=== PATIENT | female | born 1940 | race African-American/Black ===

== ENCOUNTER 2020-12-25 09:08 | Inpatient (IN) | payer MEDICARE ==
[~2020-12-25] VITALS: Ht 170.2 cm; Wt 88.7 kg
--- NOTE | 2020-12-25 09:23 | PHYS DOC ---
General Adult EDM: Chief Complaint: ALTERED MENTAL STATUS HPI: HPI: 80-year-old female past medical history significant for dementia, hypertension, hyperlipidemia, GERD, diabetes, on plavix, resents to the ED from [facility] with concern for change in mental status and high blood pressure. Last known w ell 2 days ago. Reports patient is usually ambulatory with some assistance but can no longer ambulate. Patient alert to self and month, not situation. Review of Systems: Review of Systems: Due to dementia and/or medical condition, history and review of systems are unobtainable. Heart Score: Risk Factors: Risk Factors: DM, Current or recent (<one month) smoker, HTN, HLP, family history of CAD, obesity. Risk Scores: Score 0 - 3: 2.5% MACE over next 6 weeks - Discharge Home Score 4 - 6: 20.3% MACE over next 6 weeks - Admit for Clinical Observation Score 7 - 10: 72.7% MACE over next 6 weeks - Early Invasive Strategies Physical Exam: PE: Constitutional: Well developed, well nourished, no acute distress, non-toxic appearance. HENT: Normocephalic, atraumatic, left lower facial droop/forehead sparing Eyes: EOMI, conjunctiva normal, no discharge. Neck: Normal range of motion, supple, Cardiovascular: S1/2 present, regular rhythm Lungs & Thorax: Speaking in full sentences, bilateral equal chest rise, no tachy pnea or increased work of breathing Abdomen: soft, no tenderness, Skin: Warm, dry, no erythema, no rash. [] Back: No tenderness, no CVA tenderness. [] Extremities: No tenderness, no cyanosis, no edema Neurologic: Alert, 4 points NIH Stroke Scale, normal motor function, normal sensory function, no focal deficits noted. [] Psychologic: Affect normal, judgement normal, mood -pleasant/smiling EKG: EKG: [] Radiology/Procedures: Radiology/Procedures: [] IMAGING REPORT Signed PATIENT: CLAUDIO RAMESH AACCOUNT: [id number] : 1940 LOCATION: ER AGE: 80 SEX: F EXAM STATUS: REG ER ORD. PHYSICIAN: BETO ROMERO DO REASON: ams PROCEDURE: CT HEAD WO CONTRAST CT HEAD INDICATION: Altered mental status COMPARISON: None Available. Exposure: One or more of the following individualized dose reduction techniques were utilized for this examination: 1. Automated exposure control 2. Adjustment of the mA and/or kV according to patient size 3. Use of iterative reconstruction technique TECHNIQUE: 5 mm contiguous axial images were obtained from the skull base to the vertex in both bone and soft tissue algorithm. FINDINGS: Mild bilateral periventricular white matter hypodensities likely chronic small vessel ischemic disease. No evidence of acute intracranial hemorrhage. No extra-axial fluid collections. No mass effect or midline shift. Ventricular size is appropriate. Basal cisterns are patent. No fractures identified.Cullen-white differentiation is preserved.Globes and orbits are within normal limits. Paranasal sinuses and mastoid air cells are clear. IMPRESSION: No acute intracranial findings. Electronically signed by: Adalid Gaston MD (12/25/2020 9:55 AM) [id number] DICTATED and SIGNED BY: ADALID GASTON MD DATE: 12/25/20 [id number] IMAGING REPORT Signed PATIENT: CLAUDIO RAMESH AACCOUNT: [id number] : 1940 LOCATION: ER AGE: 80 SEX: F EXAM STATUS: REG ER ORD. PHYSICIAN: BETO ROMERO DO REASON: ams PROCEDURE: PORTABLE CHEST 1V Chest AP portable at 0923: Reason for examination: Altered mental status. The heart size is normal. Mediastinum is unremarkable. Lung patrida are clear. No acute bony abnormalities are seen. Impression: No acute cardiopulmonary disease. Electronically signed by: Obi Jansen MD (12/25/2020 9:46 AM) [facility] DICTATED and SIGNED BY: OBI JANSEN MD DATE: 12/25/20 [id number] 0 Course & Med Decision Making: Course & Med Decision Making Pertinent Labs and Imaging studies reviewed. (See chart for details) Concern for left facial droop. NH was concerned for change in mental status/confusion and left sided weakness-ED exam not consistent w/these complaints. Is moving all 4 extremities. Given low stroke scale, no signs of large vessel occlusion, and renal insufficiency (no prior for baseline comparison), CT of the head and neck was not ordered. Will admit for neurology consultation, consider MRI. Was admitted to medicine for further medical management. The patient has been stabilized within the capability of the emergency department. The patient will be transported for further care and management or will be moved to an observation or inpatient service. I have communicated with the staff or medical practitioner taking over this patient's care. Dragon Disclaimer: Dragon Disclaimer: This electronic medical record was generated, in whole or in part, using a voice recognition dictation system. Departure Departure Impression: Primary Impression: Facial droop Additional Impression: Renal insufficiency Disposition: ADMITTED INPT THIS HOSP Admitting Physician: ADALBERTO (Dr. Shin) Condition[facility] Dec 25, 2020 09:23
[2020-12-25 09:33] LABS: BILIRUBIN,URINE NEGATIVE (NEG); CLARITY,URINE CLEAR; COLOR,URINE YELLOW; NITRITE,URINE NEGATIVE (NEG); PROTEIN,URINE NEGATIVE (NEG-TRACE)
[2020-12-25 09:40] LABS: BASO % 1 % (0-3); EOS # 0.3 x10^3/uL (0.0-0.7); EOS % 6 % (0-3); HEMATOCRIT 37.1 % (36.0-47.0); HEMOGLOBIN 12.2 g/dL (12.0-15.5); LYMPH % 19 % (24-48); MEAN CORPUSCULAR HEMOGLOBIN 30 pg (25-35); MEAN CORPUSCULAR HGB CONC 33 g/dL (31-37); MEAN CORPUSCULAR VOLUME 89 fL (79-100); MONO # 0.4 x10^3/uL (0.0-1.1); MONO % 8 % (0-9); NEUT # 3.6 x10^3/uL (1.8-7.7); NEUT % 67 % (31-73); PLATELET COUNT 256 x10^3/uL (140-400); RED BLOOD COUNT 4.15 x10^6/uL (3.50-5.40); RED CELL DISTRIBUTION WIDTH 14.4 % (11.5-14.5); WHITE BLOOD COUNT 5.5 x10^3/uL (4.0-11.0)
[2020-12-25 09:47] LABS: BACTERIA,URINE 0 /HPF (0-FEW); RBC,URINE 0 /HPF (0-2); WBC,URINE 0 /HPF (0-4)
[2020-12-25 09:50] LABS: CALCIUM 9.9 mg/dL (8.5-10.1); CREATININE 1.4 mg/dL (0.6-1.0); GFR 43.9; POTASSIUM 3.5 mmol/L (3.5-5.1)
[2020-12-25 09:56] LABS: ALBUMIN 3.3 g/dL (3.4-5.0); ALBUMIN/GLOBULIN RATIO 0.9 (1.0-1.7); TOTAL BILIRUBIN 0.4 mg/dL (0.2-1.0); TOTAL PROTEIN 7.1 g/dL (6.4-8.2)
--- NOTE | 2020-12-25 10:00 | RAD ---
Chest AP portable at 0923: Reason for examination: Altered mental status. The heart size is normal. Mediastinum is unremarkable. Lung partida are clear. No acute bony abnormali ties are seen. Impression: No acute cardiopulmonary disease. Electronically signed by: Shira Williamson MD (12/25/2020 9:46 AM) MAUREEN
--- NOTE | 2020-12-25 10:01 | RAD ---
CT HEAD INDICATION: Altered mental status COMPARISON: None Available. Exposure: One or more of the following individualized dose reduction techniques were utilized for thi s examination: 1. Automated exposure control 2. Adjustment of the mA and/or kV according to patient size 3. Use of iterative reconstruction technique TECHNIQUE: 5 mm contiguous axial images were obtained from the skull base to the vertex in both bone and soft tissue algorithm. FINDINGS: Mild bilateral periventricular white matter hypodensities likely chronic small vessel ischemic diseas e. No evidence of acute intracranial hemorrhage. No extra-axial fluid collections. No mass effect or midline shift. Ventricular size is appropriate. Basal cisterns are patent. No fractures identified.Cullen-white differentiation is preserved.Globes and orbits are within normal l imits. Paranasal sinuses and mastoid air cells are clear. IMPRESSION: No acute intracranial findings. Electronically signed by: Adalid Gaston MD (12/25/2020 9:55 AM) [id number]
--- NOTE | 2020-12-25 11:25 | PDOC1 ---
History and Physical Date of Service: DOS: DATE: 12/25/20 TIME: 11:22 Chief Complaint: Chief Complain: AMS History of Present Illness: HPI: Patient is a 80-year-old female who was brought from [facility] mainly because the lawn caretaker/nurse was concerned for stroke. Son was in the room was able to provide some of the history as he was told that they brought her to the hospital May because she had some confusion and there was concern for left-sided facial droop. Patient has a past medical history of dementia, hy pertension, diabetes mellitus type 2, dyslipidemia, GERD. When asked to the patient why she came to the hospital she is unsure of why she was brought in as she is a poor historian. Patient is usually amatory with some assistance but she is unable to walk at this time. Currently denies any fevers, chest pain, shortness of breath, abdominal pain, diarrhea or dysuria. Past Medical/Surgical History: PMH/PSH: Unable to obtain further history due to dementia Allergies: Allergies: Coded Allergies: Sulfa (Sulfonamide Antibiotics) (Verified Allergy, Intermediate, 12/25/20) latex (Verified Allergy, Intermediate, 12/25/20) red dye (Verified Allergy, Intermediate, 12/25/20) yellow dye (Verified Allergy, Intermediate, 12/25/20) Family History: Family History: Reviewed with no relevant findings Social History: Social History: Denies alcohol, drug or tobacco abuse ROS: Review of Systems Review of System REVIEW OF SYSTEMS: GENERAL: Denies weakness SKIN: No bruising, hair changes or rashes. EYES: No blurred, double or loss of vision. NOSE AND THROAT: No history of nosebleeds, hoarseness or sore throat. HEART: No history of palpitations, chest pain or shortness of breath on exertion. LUNGS: Denies cough, hemoptysis, wheezing or shortness of breath. GASTROINTESTINAL: Denies changes in appetite, nausea, vomiting, diarrhea or constipation. GENITOURINARY: No history of frequency, urgency, hesitancy or nocturia. NEUROLOGIC: Denies history of numbness, tingling, or tremor. PSYCHIATRIC: No history of panic, anxiety or depression. ENDOCRINE: No history of heat or cold intolerance, polyuria or polydipsia. EXTREMITIES: Denies joint pain, pain on walking or stiffness. Physical Exam: Vital Signs: Vital Signs Date Time Temp Pulse Resp B/P (MAP) Pulse Ox O2 Delivery O2 Flow Rate FiO2 12/25/20 09:08 98.2 70 16 145/69 (94) 98 Room Air 98.2 Physcial Exam: GEN: No apparent distress. Alert and oriented NIH score 6 HEENT: Normal cephalic, atraumatic, external auditory canals are patent EYES: Extraocular muscles are intact, pupil are equally round and reactive to light and accommodation MUSCULOSKELETAL: Well developed , well nourished, good range of motion ENDOCRINE: No thyromegaly was palpated LYMPHATICS: No cervical chain or axillary nodes were noted HEMATOPOIETIC: No bruising NECK: Supple, no JVD, no thyromegaly was noted LUNGS: Clear to auscultation in all lung partida without rhonchi or wheezing HEART: RRR, S!, S2 present. Peripheral pulses intact, no obvious murmurs noted ABDOMEN: Soft, nontender. Positive bowel sounds, no organomegaly, normal bowel sounds EXTREMITIES: No pronator drift. Facial palsy and minor left sided weakness. NEUROLOGIC: Normal speech and tone. A&O x 3, moves all extremities, no obvious focal deficits PSYCHIATRIC: Normal affect, normal mood. Stable SKIN: No ulcerations or rashes, good skin turgor, no jaundice VASCULAR: Good capillary refill, neurovascular bundle appears to be intact Labs: Labs: Laboratory Tests Test 12/25/20 09:24 12/25/20 09:30 Urine Collection Type U cath Urine Color Yellow Urine Clarity Clear Urine pH 7.0 (<5.0-8.0) Urine Specific Stanley 1.015 (1.000-1.030) Urine Protein Negative mg/dL (NEG-TRACE) Urine Glucose (UA) Negative mg/dL (NEG) Urine Ketones (Stick) Negative mg/dL (NEG) Urine Blood Negative (NEG) Urine Nitrite Negative (NEG) Urine Bilirubin Negative (NEG) Urine Urobilinogen Dipstick 1.0 mg/dL (0.2 mg/dL) Urine Leukocyte Esterase Negative (NEG) Urine RBC 0 /HPF (0-2) Urine WBC 0 /HPF (0-4) Urine Squamous Epithelial Cells Few /LPF Urine Bacteria 0 /HPF (0-FEW) Urine Mucus Slight /LPF White Blood Count 5.5 x10^3/uL (4.0-11.0) Red Blood Count 4.15 x10^6/uL (3.50-5.40) Hemoglobin 12.2 g/dL (12.0-15.5) Hematocrit 37.1 % (36.0-47.0) Mean Corpuscular Volume 89 fL (79-100) Mean Corpuscular Hemoglobin 30 pg (25-35) Mean Corpuscular Hemoglobin Concent 33 g/dL (31-37) Red Cell Distribution Width 14.4 % (11.5-14.5) Platelet Count 256 x10^3/uL (140-400) Neutrophils (%) (Auto) 67 % (31-73) Lymphocytes (%) (Auto) 19 % (24-48) Monocytes (%) (Auto) 8 % (0-9) Eosinophils (%) (Auto) 6 % (0-3) Basophils (%) (Auto) 1 % (0-3) Neutrophils # (Auto) 3.6 x10^3/uL (1.8-7.7) Lymphocytes # (Auto) 1.0 x10^3/uL (1.0-4.8) Monocytes # (Auto) 0.4 x10^3/uL (0.0-1.1) Eosinophils # (Auto) 0.3 x10^3/uL (0.0-0.7) Basophils # (Auto) 0.0 x10^3/uL (0.0-0.2) Sodium Level 141 mmol/L (136-145) Potassium Level 3.5 mmol/L (3.5-5.1) Chloride Level 102 mmol/L (98-107) Carbon Dioxide Level 30 mmol/L (21-32) Anion Gap 9 (6-14) Blood Urea Nitrogen 28 mg/dL (7-20) Creatinine 1.4 mg/dL (0.6-1.0) Estimated GFR (Cockcroft-Gault) 43.9 BUN/Creatinine Ratio 20 (6-20) Glucose Level 125 mg/dL (70-99) Calcium Level 9.9 mg/dL (8.5-10.1) Total Bilirubin 0.4 mg/dL (0.2-1.0) Aspartate Amino Transf (AST/SGOT) 23 U/L (15-37) Alanine Aminotransferase (ALT/SGPT) 30 U/L (14-59) Alkaline Phosphatase 61 U/L (46-116) Creatine Kinase 46 U/L (26-192) Troponin I Quantitative < 0.017 ng/mL (0.000-0.055) NF-Yfk-F-Type Natriuretic Peptide 104 pg/mL (0-449) Total Protein 7.1 g/dL (6.4-8.2) Albumin 3.3 g/dL (3.4-5.0) Albumin/Globulin Ratio 0.9 (1.0-1.7) Laboratory Tests Test 12/25/20 09:24 12/25/20 09:30 Urine Collection Type U cath Urine Color Yellow Urine Clarity Clear Urine pH 7.0 (<5.0-8.0) Urine Specific Stanley 1.015 (1.000-1.030) Urine Protein Negative mg/dL (NEG-TRACE) Urine Glucose (UA) Negative mg/dL (NEG) Urine Ketones (Stick) Negative mg/dL (NEG) Urine Blood Negative (NEG) Urine Nitrite Negative (NEG) Urine Bilirubin Negative (NEG) Urine Urobilinogen Dipstick 1.0 mg/dL (0.2 mg/dL) Urine Leukocyte Esterase Negative (NEG) Urine RBC 0 /HPF (0-2) Urine WBC 0 /HPF (0-4) Urine Squamous Epithelial Cells Few /LPF Urine Bacteria 0 /HPF (0-FEW) Urine Mucus Slight /LPF White Blood Count 5.5 x10^3/uL (4.0-11.0) Red Blood Count 4.15 x10^6/uL (3.50-5.40) Hemoglobin 12.2 g/dL (12.0-15.5) Hematocrit 37.1 % (36.0-47.0) Mean Corpuscular Volume 89 fL (79-100) Mean Corpuscular Hemoglobin 30 pg (25-35) Mean Corpuscular Hemoglobin Concent 33 g/dL (31-37) Red Cell Distribution Width 14.4 % (11.5-14.5) Platelet Count 256 x10^3/uL (140-400) Neutrophils (%) (Auto) 67 % (31-73) Lymphocytes (%) (Auto) 19 % (24-48) Monocytes (%) (Auto) 8 % (0-9) Eosinophils (%) (Auto) 6 % (0-3) Basophils (%) (Auto) 1 % (0-3) Neutrophils # (Auto) 3.6 x10^3/uL (1.8-7.7) Lymphocytes # (Auto) 1.0 x10^3/uL (1.0-4.8) Monocytes # (Auto) 0.4 x10^3/uL (0.0-1.1) Eosinophils # (Auto) 0.3 x10^3/uL (0.0-0.7) Basophils # (Auto) 0.0 x10^3/uL (0.0-0.2) Sodium Level 141 mmol/L (136-145) Potassium Level 3.5 mmol/L (3.5-5.1) Chloride Level 102 mmol/L (98-107) Carbon Dioxide Level 30 mmol/L (21-32) Anion Gap 9 (6-14) Blood Urea Nitrogen 28 mg/dL (7-20) Creatinine 1.4 mg/dL (0.6-1.0) Estimated GFR (Cockcroft-Gault) 43.9 BUN/Creatinine Ratio 20 (6-20) Glucose Level 125 mg/dL (70-99) Calcium Level 9.9 mg/dL (8.5-10.1) Total Bilirubin 0.4 mg/dL (0.2-1.0) Aspartate Amino Transf (AST/SGOT) 23 U/L (15-37) Alanine Aminotransferase (ALT/SGPT) 30 U/L (14-59) Alkaline Phosphatase 61 U/L (46-116) Creatine Kinase 46 U/L (26-192) Troponin I Quantitative < 0.017 ng/mL (0.000-0.055) EF-Cef-H-Type Natriuretic Peptide 104 pg/mL (0-449) Total Protein 7.1 g/dL (6.4-8.2) Albumin 3.3 g/dL (3.4-5.0) Albumin/Globulin Ratio 0.9 (1.0-1.7) Images: Images CT of the head IMPRESSION: No acute intracranial findings. CXR Impression: 1. No acute cardiopulmonary process. Assessment/Plan Assessment/Plan Acute encephalopathy NOS Concern for acute TIA Investigation for COVID-19 infection No obvious centrally acting medications currently. No obvious signs of infection on physical exam. No fevers or nuchal rigidity. CT head is negative for acute etiology. No history or signs of trauma Pending TSH, B12, levels Consider dementia prevention protocol Provide adequate lighting (open curtains during the day, turn the lights off at night) Provide frequent personal contact with family, friends, and staff or TV Encourage early and frequent mobilization Rehab screening ordered IV Haldol as needed for agitation, consider sitter as needed if non-redirectable agitation Avoid physical restraints, catheters or tubes, and benzodiazepines Nutrition consult if there is malnutrition or concern for vitamin deficiencies Continue IV fluids Neurology consult Continue telemetry monitoring Pending Covid test Lovenox for DVT prophylaxis ADA diet Full code Discussed with RN and SW Dispo Justifications for Admission Other Justification PATRICK ROTHMAN MD Dec 25, 2020 11:25
[2020-12-25] MEDS ORDERED: ACETAMINOPHEN 325 MG TABLET. PO PRN ×2 (12:45→13:15)
[2020-12-25] MEDS ORDERED: DEXTROSE 50% 25 GM / 50ML DISP.SYRIN. IV PRN (12:45)
[2020-12-25] MEDS ORDERED: DOCUSATE SODIUM 100 MG CAPSULE. PO PRN (12:45)
[2020-12-25] MEDS ORDERED: ONDANSETRON PF 4 MG/2 ML VIAL. IVP PRN (12:45)
[2020-12-25] MEDS ORDERED: SENNOSIDES 8.6 MG TABLET PO PRN (12:45)
[2020-12-25] MEDS ORDERED: ASPIRIN RECTAL 300 MG SUPP. PR PRN (13:15)
--- NOTE | 2020-12-25 13:48 | PDOC2 ---
NEUROLOGY CONSULT Date of Service DOS: DATE: 12/25/20 TIME: 13:42 Reason for Consult Reason for Consult: Possible stroke Referring Physician Referring Physician: Dr. Shin Source Source: Caregiver (Son), Chart review, Patient History of Present Illness History of Present Illness The patient is a 80-year-old right-handed female jail resident with history of dementia noted to have left facial droop. This may have been going on for as long as 2 days, we are not sure of the duration of symptoms. In fact the patient was in the hospital in March because of confusion and facial droop then. Patient denies any headache or other pain. Past Medical History Cardiovascular: HTN CENTRAL NERVOUS SYSTEM: Dementia, Other (Gait disorder) GI: GERD Heme/Onc: Iron deficiency Anemia Psych: Depression Endocrine: Diabetes Past Surgical History Past Surgical History: No pertinent history Family History Family History: No pertinent hx Social History Social History , jail resident, no alcohol or tobacco Current Medications Current Medications Current Medications Sennosides (Senna) 17.2 mg PRN BID PRN PO CONSTIPATION; Start 12/25/20 at 12:45 Docusate Sodium (Colace) 100 mg PRN DAILY PRN PO HARD STOOLS; Start 12/25/20 at 12:45; Status UNV Ondansetron HCl (Zofran) 4 mg PRN Q6HRS PRN IVP NAUSEA/VOMITING; Start 12/25/20 at 12:45 Insulin Human Lispro (HumaLOG) 0-7 UNITS TIDWMEALS SQ ; Start 12/25/20 at 17:00 Dextrose (Dextrose 50%-Water Syringe) 12.5 gm PRN Q15MIN PRN IV SEE COMMENTS; Start 12/25/20 at 12:45 Acetaminophen (Tylenol) 650 mg PRN Q4HRS PRN PO TEMP OVER 100.4F OR MILD PAIN; Start 12/25/20 at 12:45 Enoxaparin Sodium (Lovenox 30mg Syringe) 30 mg DAILY SQ ; Start 12/26/20 at 09:00 Sodium Chloride 1,000 ml @ 70 mls/hr [id number] IV ; Start 12/25/20 at 13:15 Atorvastatin Calcium (Lipitor) 80 mg QHS PO ; Start 12/25/20 at 21:00 Acetaminophen (Tylenol) 650 mg PRN Q6HRS PRN PO MILD PAIN / TEMP > 100.3'F; Start 12/25/20 at 13:15; Stop 12/25/20 at 13:32; Status DC Aspirin (Ecotrin) 325 mg DAILYWBKFT PO ; Start 12/26/20 at 08:00 Aspirin (Aspirin Rectal Supp) 300 mg PRN DAILY PRN IA IF UNABLE TO TAKE PO; Start 12/25/20 at 13:15 Allergies Allergies: Coded Allergies: Sulfa (Sulfonamide Antibiotics) (Verified Allergy, Intermediate, 12/25/20) latex (Verified Allergy, Intermediate, 12/25/20) red dye (Verified Allergy, Intermediate, 12/25/20) yellow dye (Verified Allergy, Intermediate, 12/25/20) ROS Review of System Negative for fever, chills, weight loss, shortness of breath, chest pain, indigestion, hematochezia, melena, and dysuria. Full 14-point review of systems is negative. Physical Exam Physical Examination General: Well-developed, well-nourished black female in no acute distress HEENT: Normocephalic andatraumatic. Temporal arteriespulsatile and nontender. Neck: Supple without bruit, no meningismus Musculoskeletal: Stability:see neurologic. Gait exam:see neurologic. Tone:see neurologic.Strength:see neurologic. Neurological: Mental Status:orientation, memory, attention span/concentration, language, fund of knowledge: Does not know date or location. Cranial Nerves:Pupils equal and reactive to light, extraocular movements areintact, visual partida are full to confrontation. Facial sensation is normal. There is a slight left upper motor neuron facial weakness. Vestibulo-ocular reflex is intact. Palate elevates and tongue protrudes in midline. All other cranial related problems are negative except as mentioned before.Reflexes:2+ and symmetric with flexor plantar responses. Motor:4/5 strength, maybe a little weaker on the left, with normal tone and bulk. Coordination:Finger-nose finger and rmcz-bs-[id number] testing are normal. Rapid alternating movements and fine finger movements are intact. Gait:Not tested. Sensory:Normal pinprick, vibration, light touch, proprioception. Vitals VITALS Vital Signs Date Time Temp Pulse Resp B/P (MAP) Pulse Ox O2 Delivery O2 Flow Rate FiO2 12/25/20 13:03 66 20 98 12/25/20 09:08 98.2 145/69 (94) Room Air 98.2 Labs Labs Laboratory Tests Test 12/25/20 09:24 12/25/20 09:30 Urine Collection Type U cath Urine Color Yellow Urine Clarity Clear Urine pH 7.0 (<5.0-8.0) Urine Specific [place] 1.015 (1.000-1.030) Urine Protein Negative mg/dL (NEG-TRACE) Urine Glucose (UA) Negative mg/dL (NEG) Urine Ketones (Stick) Negative mg/dL (NEG) Urine Blood Negative (NEG) Urine Nitrite Negative (NEG) Urine Bilirubin Negative (NEG) Urine Urobilinogen Dipstick 1.0 mg/dL (0.2 mg/dL) Urine Leukocyte Esterase Negative (NEG) Urine RBC 0 /HPF (0-2) Urine WBC 0 /HPF (0-4) Urine Squamous Epithelial Cells Few /LPF Urine Bacteria 0 /HPF (0-FEW) Urine Mucus Slight /LPF White Blood Count 5.5 x10^3/uL (4.0-11.0) Red Blood Count 4.15 x10^6/uL (3.50-5.40) Hemoglobin 12.2 g/dL (12.0-15.5) Hematocrit 37.1 % (36.0-47.0) Mean Corpuscular Volume 89 fL (79-100) Mean Corpuscular Hemoglobin 30 pg (25-35) Mean Corpuscular Hemoglobin Concent 33 g/dL (31-37) Red Cell Distribution Width 14.4 % (11.5-14.5) Platelet Count 256 x10^3/uL (140-400) Neutrophils (%) (Auto) 67 % (31-73) Lymphocytes (%) (Auto) 19 % (24-48) Monocytes (%) (Auto) 8 % (0-9) Eosinophils (%) (Auto) 6 % (0-3) Basophils (%) (Auto) 1 % (0-3) Neutrophils # (Auto) 3.6 x10^3/uL (1.8-7.7) Lymphocytes # (Auto) 1.0 x10^3/uL (1.0-4.8) Monocytes # (Auto) 0.4 x10^3/uL (0.0-1.1) Eosinophils # (Auto) 0.3 x10^3/uL (0.0-0.7) Basophils # (Auto) 0.0 x10^3/uL (0.0-0.2) Sodium Level 141 mmol/L (136-145) Potassium Level 3.5 mmol/L (3.5-5.1) Chloride Level 102 mmol/L (98-107) Carbon Dioxide Level 30 mmol/L (21-32) Anion Gap 9 (6-14) Blood Urea Nitrogen 28 mg/dL (7-20) Creatinine 1.4 mg/dL (0.6-1.0) Estimated GFR (Cockcroft-Gault) 43.9 BUN/Creatinine Ratio 20 (6-20) Glucose Level 125 mg/dL (70-99) Calcium Level 9.9 mg/dL (8.5-10.1) Total Bilirubin 0.4 mg/dL (0.2-1.0) Aspartate Amino Transf (AST/SGOT) 23 U/L (15-37) Alanine Aminotransferase (ALT/SGPT) 30 U/L (14-59) Alkaline Phosphatase 61 U/L (46-116) Creatine Kinase 46 U/L (26-192) Troponin I Quantitative < 0.017 ng/mL (0.000-0.055) OF-Prw-C-Type Natriuretic Peptide 104 pg/mL (0-449) Total Protein 7.1 g/dL (6.4-8.2) Albumin 3.3 g/dL (3.4-5.0) Albumin/Globulin Ratio 0.9 (1.0-1.7) Laboratory Tests Test 12/25/20 09:24 12/25/20 09:30 Urine Collection Type U cath Urine Color Yellow Urine Clarity Clear Urine pH 7.0 (<5.0-8.0) Urine Specific [place] 1.015 (1.000-1.030) Urine Protein Negative mg/dL (NEG-TRACE) Urine Glucose (UA) Negative mg/dL (NEG) Urine Ketones (Stick) Negative mg/dL (NEG) Urine Blood Negative (NEG) Urine Nitrite Negative (NEG) Urine Bilirubin Negative (NEG) Urine Urobilinogen Dipstick 1.0 mg/dL (0.2 mg/dL) Urine Leukocyte Esterase Negative (NEG) Urine RBC 0 /HPF (0-2) Urine WBC 0 /HPF (0-4) Urine Squamous Epithelial Cells Few /LPF Urine Bacteria 0 /HPF (0-FEW) Urine Mucus Slight /LPF White Blood Count 5.5 x10^3/uL (4.0-11.0) Red Blood Count 4.15 x10^6/uL (3.50-5.40) Hemoglobin 12.2 g/dL (12.0-15.5) Hematocrit 37.1 % (36.0-47.0) Mean Corpuscular Volume 89 fL (79-100) Mean Corpuscular Hemoglobin 30 pg (25-35) Mean Corpuscular Hemoglobin Concent 33 g/dL (31-37) Red Cell Distribution Width 14.4 % (11.5-14.5) Platelet Count 256 x10^3/uL (140-400) Neutrophils (%) (Auto) 67 % (31-73) Lymphocytes (%) (Auto) 19 % (24-48) Monocytes (%) (Auto) 8 % (0-9) Eosinophils (%) (Auto) 6 % (0-3) Basophils (%) (Auto) 1 % (0-3) Neutrophils # (Auto) 3.6 x10^3/uL (1.8-7.7) Lymphocytes # (Auto) 1.0 x10^3/uL (1.0-4.8) Monocytes # (Auto) 0.4 x10^3/uL (0.0-1.1) Eosinophils # (Auto) 0.3 x10^3/uL (0.0-0.7) Basophils # (Auto) 0.0 x10^3/uL (0.0-0.2) Sodium Level 141 mmol/L (136-145) Potassium Level 3.5 mmol/L (3.5-5.1) Chloride Level 102 mmol/L (98-107) Carbon Dioxide Level 30 mmol/L (21-32) Anion Gap 9 (6-14) Blood Urea Nitrogen 28 mg/dL (7-20) Creatinine 1.4 mg/dL (0.6-1.0) Estimated GFR (Cockcroft-Gault) 43.9 BUN/Creatinine Ratio 20 (6-20) Glucose Level 125 mg/dL (70-99) Calcium Level 9.9 mg/dL (8.5-10.1) Total Bilirubin 0.4 mg/dL (0.2-1.0) Aspartate Amino Transf (AST/SGOT) 23 U/L (15-37) Alanine Aminotransferase (ALT/SGPT) 30 U/L (14-59) Alkaline Phosphatase 61 U/L (46-116) Creatine Kinase 46 U/L (26-192) Troponin I Quantitative < 0.017 ng/mL (0.000-0.055) OB-Feg-D-Type Natriuretic Peptide 104 pg/mL (0-449) Total Protein 7.1 g/dL (6.4-8.2) Albumin 3.3 g/dL (3.4-5.0) Albumin/Globulin Ratio 0.9 (1.0-1.7) Images Images CT HEAD INDICATION: Altered mental status COMPARISON: None Available. Exposure: One or more of the following individualized dose reduction techniques were utilized for this examination: 1. Automated exposure control 2. Adjustment of the mA and/or kV according to patient size 3. Use of iterative reconstruction technique TECHNIQUE: 5 mm contiguous axial images were obtained from the skull base to the vertex in both bone and soft tissue algorithm. FINDINGS: Mild bilateral periventricular white matter hypodensities likely chronic small vessel ischemic disease. No evidence of acute intracranial hemorrhage. No extra-axial fluid collections. No mass effect or midline shift. Ventricular size is appropriate. Basal cisterns are patent. No fractures identified.Cullen-white differentiation is preserved.Globes and orbits are within normal limits. Paranasal sinuses and mastoid air cells are clear. IMPRESSION: No acute intracranial findings. Assessment/Plan Assessment/Plan Impression: Possible stroke, her exam is not very impressive History of dementia and gait disorder Recommendations: Brain MRI on routine basis Echocardiogram Carotid Doppler studies Aspirin Statin Rehabilitation screening Not a candidate for alteplase, unknown time of onset Not a candidate for transfer for clot retrieval as there is no evidence of large vessel occlusive disease. Fully discussed with the patient's son. Thank you for letting me help with the patient's care. LULU ALEXIS MD Dec 25, 2020 13:48
--- NOTE | 2020-12-25 16:31 | RAD ---
EXAM: Carotid Doppler sonogram. HISTORY: Atherosclerosis. Stroke. TECHNIQUE: Cullen scale and color Doppler sonographic evaluation of the neck with spectral waveform jie lysis was performed and static images are submitted for review. FINDINGS: There is mild atherosclerotic plaque involving the carotid bifurcations. The peak systolic velocity within the right common carotid artery is 77 cm/sec. The peak systolic shorty ocity within the right internal carotid artery is 79 cm/sec and the end diastolic velocity within the right internal carotid artery is 11 cm/sec. The right ICA/CCA ratio is 1.0. The peak systolic velocity within the left common carotid artery is 113 cm/sec. The peak systolic shorty ocity within the left internal carotid artery is 86 cm/sec and the end diastolic velocity within the left internal carotid artery is 24 cm/sec. The left ICA/CCA ratio is 0.91. There is normal antegrade flow within both vertebral arteries. IMPRESSION: No Doppler evidence of clinically significant stenosis involving the carotid or vertebral arteries. PQRS Compliance Statement - Stenosis calculations for CT, MR and conventional angiography are based u cher measurement of the distal ICA diameter in accordance with the NASCET methodology. Stenosis calcu lations for carotid ultrasound studies are derived from validated velocity criteria which are known t o correlate with the NASCET methodology. Electronically signed by: Cristela Alberto MD (12/25/2020 4:27 PM) [facility]
[2020-12-25 16:40] VITALS: BP 188/79
[2020-12-25] MEDS: INSULIN LISPRO 300 UNITS/3 ML VIAL. SQ SCH (17:00)
[2020-12-25 17:15] VITALS: BP 188/79
[2020-12-25] MEDS: IV 1/2 NORMAL SALINE 1,000 ML IV SCH (17:24)
[2020-12-25 17:30] VITALS: BP 162/67
[2020-12-25] MEDS ORDERED: PANT20TA2 PO (18:45)
[2020-12-25] MEDS ORDERED: CARV12.511 PO (18:45)
[2020-12-25] MEDS ORDERED: CLON0.2T PO (18:45)
[2020-12-25] MEDS ORDERED: METF500T16 PO (18:45)
[2020-12-25] MEDS ORDERED: CLOP75TA PO (18:45)
[2020-12-25] MEDS ORDERED: LISI1TAB20 PO (18:45)
[2020-12-25] MEDS ORDERED: OXYB10TA26 PO (18:45)
[2020-12-25] MEDS ORDERED: ONDA4TAB7 PO (18:45)
[2020-12-25] MEDS ORDERED: ESCITALOPRAM OX10 MG PO (18:45)
[2020-12-25] MEDS ORDERED: OLAN5TAB9 PO (18:45)
[2020-12-25] MEDS ORDERED: DONE10TA61 PO (18:45)
[2020-12-25] MEDS ORDERED: AMLO-187 PO (18:45)
[2020-12-25] MEDS ORDERED: ASPI-886 PO (18:45)
[2020-12-25] MEDS ORDERED: FERR325T14 PO (18:45)
[2020-12-25 19:48] VITALS: BP 161/73
[2020-12-25] MEDS: ATORVASTATIN CALCIUM 40 MG TABLET. PO SCH (20:53)
[2020-12-25 22:54] VITALS: BP 174/74
[2020-12-26 03:06] VITALS: BP 208/89
[2020-12-26 04:33] LABS: HEMOGLOBIN A1C 5.5 % (4.8-5.6)
[2020-12-26 06:22] LABS: CALCIUM 9.6 mg/dL (8.5-10.1); CREATININE 1.1 mg/dL (0.6-1.0); MAGNESIUM 1.8 mg/dL (1.8-2.4); PHOSPHORUS 3.9 mg/dL (2.6-4.7); POTASSIUM 3.5 mmol/L (3.5-5.1)
[2020-12-26 06:57] LABS: BASO % 1 % (0-3); EOS # 0.3 x10^3/uL (0.0-0.7); EOS % 7 % (0-3); HEMATOCRIT 35.4 % (36.0-47.0); LYMPH % 20 % (24-48); MEAN CORPUSCULAR HEMOGLOBIN 30 pg (25-35); MEAN CORPUSCULAR HGB CONC 34 g/dL (31-37); MEAN CORPUSCULAR VOLUME 89 fL (79-100); MONO # 0.5 x10^3/uL (0.0-1.1); MONO % 11 % (0-9); NEUT % 62 % (31-73); PLATELET COUNT 260 x10^3/uL (140-400); RED BLOOD COUNT 3.97 x10^6/uL (3.50-5.40); RED CELL DISTRIBUTION WIDTH 14.1 % (11.5-14.5); WHITE BLOOD COUNT 4.8 x10^3/uL (4.0-11.0)
[2020-12-26 07:00] VITALS: BP 191/80
[2020-12-26] MEDS: INSULIN LISPRO 300 UNITS/3 ML VIAL. SQ SCH ×3 (08:00→17:00)
[2020-12-26] MEDS: IV 1/2 NORMAL SALINE 1,000 ML IV SCH ×2 (08:10→20:39)
[2020-12-26] MEDS ORDERED: ENOXAPARIN 30 MG/0.3 ML SYRINGE. SQ SCH (09:00)
[2020-12-26] MEDS ORDERED: hydrALAZINE 20 MG/ML VIAL. IVP PRN (09:45)
--- NOTE | 2020-12-26 10:04 | PDOC ---
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 Afebrile overnight. She still NPO. She is asking for juice. No pain complaints no chest pain no shortness of breath. Systolic blood pressure near 200 mmHg. Vitals/I&O Vitals/I&O: Vital Signs Date Time Temp Pulse Resp B/P (MAP) Pulse Ox O2 Delivery O2 Flow Rate FiO2 12/26/20 07:00 98.4 76 20 191/80 (117) 97 Room Air 98.4 I & O 12/25/20 12/25/20 12/26/20 15:00 23:00 07:00 Intake Total 900 ml Output Total 400 ml Balance 500 ml Physical Exam General: Alert, Cooperative Heart: Regular rate, Normal S1, Normal S2 Lungs: Clear Abdomen: Normal bowel sounds, Soft Extremities: No clubbing, No cyanosis Skin: No rashes, No breakdown Labs Labs: Laboratory Tests Test 12/25/20 21:04 12/26/20 05:02 12/26/20 05:30 12/26/20 07:12 Glucose (Fingerstick) 109 mg/dL (70-99) 106 mg/dL (70-99) White Blood Count 4.8 x10^3/uL (4.0-11.0) Red Blood Count 3.97 x10^6/uL (3.50-5.40) Hemoglobin 12.0 g/dL (12.0-15.5) Hematocrit 35.4 % (36.0-47.0) Mean Corpuscular Volume 89 fL (79-100) Mean Corpuscular Hemoglobin 30 pg (25-35) Mean Corpuscular Hemoglobin Concent 34 g/dL (31-37) Red Cell Distribution Width 14.1 % (11.5-14.5) Platelet Count 260 x10^3/uL (140-400) Neutrophils (%) (Auto) 62 % (31-73) Lymphocytes (%) (Auto) 20 % (24-48) Monocytes (%) (Auto) 11 % (0-9) Eosinophils (%) (Auto) 7 % (0-3) Basophils (%) (Auto) 1 % (0-3) Neutrophils # (Auto) 3.0 x10^3/uL (1.8-7.7) Lymphocytes # (Auto) 1.0 x10^3/uL (1.0-4.8) Monocytes # (Auto) 0.5 x10^3/uL (0.0-1.1) Eosinophils # (Auto) 0.3 x10^3/uL (0.0-0.7) Basophils # (Auto) 0.0 x10^3/uL (0.0-0.2) Sodium Level 141 mmol/L (136-145) Potassium Level 3.5 mmol/L (3.5-5.1) Chloride Level 103 mmol/L (98-107) Carbon Dioxide Level 29 mmol/L (21-32) Anion Gap 9 (6-14) Blood Urea Nitrogen 22 mg/dL (7-20) Creatinine 1.1 mg/dL (0.6-1.0) Estimated GFR (Cockcroft-Gault) 58.0 Glucose Level 93 mg/dL (70-99) Calcium Level 9.6 mg/dL (8.5-10.1) Phosphorus Level 3.9 mg/dL (2.6-4.7) Magnesium Level 1.8 mg/dL (1.8-2.4) Assessment and Plan Assessmemt and Plan Problems Medical Problems: (1) Facial droop Status: Acute (2) Renal insufficiency Status: Acute Comment Review of Relevant I have reviewed the following items shakeel (where applicable) has been applied. Medications: Current Medications Medications (Trade) Dose Ordered Sig/Allyson Route PRN Reason Start Time Stop Time Status Last Admin Dose Admin Enoxaparin Sodium (Lovenox 30mg Syringe) 30 mg DAILY SQ 12/26/20 09:00 12/26/20 08:10 Sodium Chloride 1,000 ml @ 70 mls/hr [id number] IV 12/25/20 13:15 12/26/20 08:10 Justifications for Admission Other Justification HTN urgency WENDY ALONZO MD Dec 26, 2020 10:04
--- NOTE | 2020-12-26 10:46 | PDOC ---
PROGRESS NOTES Date of Service DATE: 12/26/20 TIME: 10:42 Assessment Problems Medical Problems: (1) Facial droop Status: Acute (2) Renal insufficiency Status: Acute Possible stroke, her exam is not very impressive, in fact the prior left facial weakness has already disappeared. Perhaps she just had recurrent signs of previous stroke due to a metabolic issue such as relatively high blood pressure History of dementia and gait disorder Plan Await brain MRI and echocardiogram Awaiting swallow eval, physical and occupational therapy, asked nurse to check on this Aspirin Statin Home as soon as later today if tests are negative Subjective No complaints Objective Vital Signs Date Time Temp Pulse Resp B/P (MAP) Pulse Ox O2 Delivery O2 Flow Rate FiO2 12/26/20 08:00 Room Air 12/26/20 07:00 98.4 76 20 191/80 (117) 97 98.4 Intake and Output 12/26/20 07:00 Intake Total 900 ml Output Total 400 ml Balance 500 ml IV Total 900 ml Output Urine Total 400 ml PHYSICAL EXAM Alert. Oriented only to person. PERRL. EOMI. CN: no focal findings. Muscle tone: normal. Muscle strength: 4/5 DTR: 2+ Plantar reflex: Flexor Gait: not examined in bed. Sensory exam: no abnormal findings. No cerebellar signs elicited. Review of Relevant I have reviewed the following items shakeel (where applicable) has been applied. Labs Laboratory Tests Test 12/25/20 09:24 12/25/20 09:30 12/25/20 21:04 12/26/20 05:02 Urine Collection Type U cath Urine Color Yellow Urine Clarity Clear Urine pH 7.0 (<5.0-8.0) Urine Specific [place] 1.015 (1.000-1.030) Urine Protein Negative mg/dL (NEG-TRACE) Urine Glucose (UA) Negative mg/dL (NEG) Urine Ketones (Stick) Negative mg/dL (NEG) Urine Blood Negative (NEG) Urine Nitrite Negative (NEG) Urine Bilirubin Negative (NEG) Urine Urobilinogen Dipstick 1.0 mg/dL (0.2 mg/dL) Urine Leukocyte Esterase Negative (NEG) Urine RBC 0 /HPF (0-2) Urine WBC 0 /HPF (0-4) Urine Squamous Epithelial Cells Few /LPF Urine Bacteria 0 /HPF (0-FEW) Urine Mucus Slight /LPF White Blood Count 5.5 x10^3/uL (4.0-11.0) 4.8 x10^3/uL (4.0-11.0) Red Blood Count 4.15 x10^6/uL (3.50-5.40) 3.97 x10^6/uL (3.50-5.40) Hemoglobin 12.2 g/dL (12.0-15.5) 12.0 g/dL (12.0-15.5) Hematocrit 37.1 % (36.0-47.0) 35.4 % (36.0-47.0) Mean Corpuscular Volume 89 fL (79-100) 89 fL (79-100) Mean Corpuscular Hemoglobin 30 pg (25-35) 30 pg (25-35) Mean Corpuscular Hemoglobin Concent 33 g/dL (31-37) 34 g/dL (31-37) Red Cell Distribution Width 14.4 % (11.5-14.5) 14.1 % (11.5-14.5) Platelet Count 256 x10^3/uL (140-400) 260 x10^3/uL (140-400) Neutrophils (%) (Auto) 67 % (31-73) 62 % (31-73) Lymphocytes (%) (Auto) 19 % (24-48) 20 % (24-48) Monocytes (%) (Auto) 8 % (0-9) 11 % (0-9) Eosinophils (%) (Auto) 6 % (0-3) 7 % (0-3) Basophils (%) (Auto) 1 % (0-3) 1 % (0-3) Neutrophils # (Auto) 3.6 x10^3/uL (1.8-7.7) 3.0 x10^3/uL (1.8-7.7) Lymphocytes # (Auto) 1.0 x10^3/uL (1.0-4.8) 1.0 x10^3/uL (1.0-4.8) Monocytes # (Auto) 0.4 x10^3/uL (0.0-1.1) 0.5 x10^3/uL (0.0-1.1) Eosinophils # (Auto) 0.3 x10^3/uL (0.0-0.7) 0.3 x10^3/uL (0.0-0.7) Basophils # (Auto) 0.0 x10^3/uL (0.0-0.2) 0.0 x10^3/uL (0.0-0.2) Sodium Level 141 mmol/L (136-145) Potassium Level 3.5 mmol/L (3.5-5.1) Chloride Level 102 mmol/L (98-107) Carbon Dioxide Level 30 mmol/L (21-32) Anion Gap 9 (6-14) Blood Urea Nitrogen 28 mg/dL (7-20) Creatinine 1.4 mg/dL (0.6-1.0) Estimated GFR (Cockcroft-Gault) 43.9 BUN/Creatinine Ratio 20 (6-20) Glucose Level 125 mg/dL (70-99) Hemoglobin A1c 5.5 % (4.8-5.6) Calcium Level 9.9 mg/dL (8.5-10.1) Total Bilirubin 0.4 mg/dL (0.2-1.0) Aspartate Amino Transf (AST/SGOT) 23 U/L (15-37) Alanine Aminotransferase (ALT/SGPT) 30 U/L (14-59) Alkaline Phosphatase 61 U/L (46-116) Creatine Kinase 46 U/L (26-192) Troponin I Quantitative < 0.017 ng/mL (0.000-0.055) HB-Eoz-H-Type Natriuretic Peptide 104 pg/mL (0-449) Total Protein 7.1 g/dL (6.4-8.2) Albumin 3.3 g/dL (3.4-5.0) Albumin/Globulin Ratio 0.9 (1.0-1.7) Triglycerides Level 86 mg/dL (0-150) Cholesterol Level 320 mg/dL (0-200) LDL Cholesterol, Calculated 223 mg/dL (0-100) VLDL Cholesterol, Calculated 17 mg/dL (0-40) Non-HDL Cholesterol Calculated 240 mg/dL (0-129) HDL Cholesterol 80 mg/dL (40-60) Cholesterol/HDL Ratio 4.0 Vitamin B12 Level 504 pg/mL (247-911) Thyroid Stimulating Hormone (TSH) 0.492 uIU/mL (0.358-3.74) Glucose (Fingerstick) 109 mg/dL (70-99) Test 2/1/21 05:30 12/26/20 07:12 Sodium Level 141 mmol/L (136-145) Potassium Level 3.5 mmol/L (3.5-5.1) Chloride Level 103 mmol/L (98-107) Carbon Dioxide Level 29 mmol/L (21-32) Anion Gap 9 (6-14) Blood Urea Nitrogen 22 mg/dL (7-20) Creatinine 1.1 mg/dL (0.6-1.0) Estimated GFR (Cockcroft-Gault) 58.0 Glucose Level 93 mg/dL (70-99) Calcium Level 9.6 mg/dL (8.5-10.1) Phosphorus Level 3.9 mg/dL (2.6-4.7) Magnesium Level 1.8 mg/dL (1.8-2.4) Glucose (Fingerstick) 106 mg/dL (70-99) Laboratory Tests Test 12/25/20 21:04 12/26/20 05:02 12/26/20 05:30 12/26/20 07:12 Glucose (Fingerstick) 109 mg/dL (70-99) 106 mg/dL (70-99) White Blood Count 4.8 x10^3/uL (4.0-11.0) Red Blood Count 3.97 x10^6/uL (3.50-5.40) Hemoglobin 12.0 g/dL (12.0-15.5) Hematocrit 35.4 % (36.0-47.0) Mean Corpuscular Volume 89 fL (79-100) Mean Corpuscular Hemoglobin 30 pg (25-35) Mean Corpuscular Hemoglobin Concent 34 g/dL (31-37) Red Cell Distribution Width 14.1 % (11.5-14.5) Platelet Count 260 x10^3/uL (140-400) Neutrophils (%) (Auto) 62 % (31-73) Lymphocytes (%) (Auto) 20 % (24-48) Monocytes (%) (Auto) 11 % (0-9) Eosinophils (%) (Auto) 7 % (0-3) Basophils (%) (Auto) 1 % (0-3) Neutrophils # (Auto) 3.0 x10^3/uL (1.8-7.7) Lymphocytes # (Auto) 1.0 x10^3/uL (1.0-4.8) Monocytes # (Auto) 0.5 x10^3/uL (0.0-1.1) Eosinophils # (Auto) 0.3 x10^3/uL (0.0-0.7) Basophils # (Auto) 0.0 x10^3/uL (0.0-0.2) Sodium Level 141 mmol/L (136-145) Potassium Level 3.5 mmol/L (3.5-5.1) Chloride Level 103 mmol/L (98-107) Carbon Dioxide Level 29 mmol/L (21-32) Anion Gap 9 (6-14) Blood Urea Nitrogen 22 mg/dL (7-20) Creatinine 1.1 mg/dL (0.6-1.0) Estimated GFR (Cockcroft-Gault) 58.0 Glucose Level 93 mg/dL (70-99) Calcium Level 9.6 mg/dL (8.5-10.1) Phosphorus Level 3.9 mg/dL (2.6-4.7) Magnesium Level 1.8 mg/dL (1.8-2.4) Medications Current Medications Sennosides (Senna) 17.2 mg PRN BID PRN PO CONSTIPATION; Start 12/25/20 at 12:45 Docusate Sodium (Colace) 100 mg PRN DAILY PRN PO HARD STOOLS; Start 12/25/20 at 12:45; Status UNV Ondansetron HCl (Zofran) 4 mg PRN Q6HRS PRN IVP NAUSEA/VOMITING; Start 12/25/20 at 12:45 Insulin Human Lispro (HumaLOG) 0-7 UNITS TIDWMEALS SQ ; Start 12/25/20 at 17:00 Dextrose (Dextrose 50%-Water Syringe) 12.5 gm PRN Q15MIN PRN IV SEE COMMENTS; Start 12/25/20 at 12:45 Acetaminophen (Tylenol) 650 mg PRN Q4HRS PRN PO TEMP OVER 100.4F OR MILD PAIN; Start 12/25/20 at 12:45 Enoxaparin Sodium (Lovenox 30mg Syringe) 30 mg DAILY SQ Last administered on 12/26/20at 08:10; Start 12/26/20 at 09:00 Sodium Chloride 1,000 ml @ 70 mls/hr [id number] IV Last administered on 12/26/20at 08:10; Start 12/25/20 at 13:15 Atorvastatin Calcium (Lipitor) 80 mg QHS PO ; Start 12/25/20 at 21:00 Acetaminophen (Tylenol) 650 mg PRN Q6HRS PRN PO MILD PAIN / TEMP > 100.3'F; Start 12/25/20 at 13:15; Stop 12/25/20 at 13:32; Status DC Aspirin (Ecotrin) 325 mg DAILYWBKFT PO ; Start 12/26/20 at 08:00 Aspirin (Aspirin Rectal Supp) 300 mg PRN DAILY PRN NC IF UNABLE TO TAKE PO; Start 12/25/20 at 13:15 Hydralazine HCl (Apresoline Inj) 10 mg PRN Q4HRS PRN IVP ELEVATED BP, SEE COMMENTS; Start 12/26/20 at 09:45 Active Scripts Active Reported Zofran (Ondansetron Hcl) 4 Mg Tablet 1 Tab PO Q8HRS Protonix (Pantoprazole Sodium) 20 Mg Tablet.dr 1 Tab PO DAILY Oxybutynin Chloride Er (Oxybutynin Chloride) 10 Mg Tab.er.24 10 Mg PO DAILY Olanzapine 5 Mg Tablet 1 Tab PO QHS Metformin Hcl 500 Mg Tablet 500 Mg PO BIDWMEALS Lisinopril-Hctz 20-25 Mg Tab (Lisinopril/Hydrochlorothiazide) 1 Each Tablet 1 Ta b PO DAILY Ferrous Sulfate 325 Mg Tablet 1 Tab PO DAILY 1 Days Escitalopram Oxalate 10 Mg Tablet 10 Mg PO DAILY Clopidogrel (Clopidogrel Bisulfate) 75 Mg Tablet 1 Tab PO DAILY Clonidine Hcl 0.2 Mg Tablet 0.2 Mg PO BID Carvedilol (Carvedilol) 12.5 Mg Tablet 12.5 Mg PO BIDWMEALS Aspirin Ec (Aspirin) 81 Mg Tablet. 81 Mg PO DAILY Aricept (Donepezil Hcl) 10 Mg Tablet 10 Mg PO HS Amlodipine Besylate 10 Mg Tablet 10 Mg PO DAILY Vitals/I & O Vital Sign - Last 24 Hours 12/25/20 12/25/20 12/25/20 12/25/20 11:03 11:33 12:03 12:33 Pulse 64 66 70 62 Resp 20 20 20 20 Pulse Ox 97 97 98 97 1/31/12/25/20 12/25/20 12/25/20 13:03 13:33 14:03 14:33 Pulse 66 64 66 66 Resp 20 20 16 16 Pulse Ox 98 98 96 98 12/25/20 12/25/20 12/25/20 12/25/20 15:03 15:33 16:03 16:40 Temp 98.4 98.4 Pulse 68 68 68 70 Resp 16 16 16 20 B/P (MAP) 188/79 (115) Pulse Ox 99 98 99 O2 Delivery Room Air 12/25/20 12/25/20 12/25/20 12/25/20 17:00 17:15 17:30 19:48 Temp 98.3 98.3 Pulse 68 66 74 Resp 20 20 18 B/P (MAP) 188/79 (115) 162/67 (98) 161/73 (102) Pulse Ox 95 O2 Delivery Room Air Room Air Room Air Room Air 12/25/20 12/25/20 12/26/20 12/26/20 20:00 22:54 03:06 07:00 Temp 97.9 98.0 98.4 97.9 98.0 98.4 Pulse 77 68 76 Resp 18 20 20 B/P (MAP) 174/74 (107) 208/89 (128) 191/80 (117) Pulse Ox 98 99 97 O2 Delivery Room Air Room Air Room Air Room Air 12/26/20 08:00 O2 Delivery Room Air Intake and Output 12/25/20 12/25/20 12/26/20 15:00 23:00 07:00 Intake Total 900 ml Output Total 400 ml Balance 500 ml Images Carotid Doppler sonogram. HISTORY: Atherosclerosis. Stroke. TECHNIQUE: Cullen scale and color Doppler sonographic evaluation of the neck with spectral waveform analysis was performed and static images are submitted for review. FINDINGS: There is mild atherosclerotic plaque involving the carotid bifurcations. The peak systolic velocity within the right common carotid artery is 77 cm/sec. The peak systolic velocity within the right internal carotid artery is 79 cm/sec and the end diastolic velocity within the right internal carotid artery is 11 cm/sec. The right ICA/CCA ratio is 1.0. The peak systolic velocity within the left common carotid artery is 113 cm/sec. The peak systolic velocity within the left internal carotid artery is 86 cm/sec and the end diastolic velocity within the left internal carotid artery is 24 cm/sec. The left ICA/CCA ratio is 0.91. There is normal antegrade flow within both vertebral arteries. IMPRESSION: No Doppler evidence of clinically significant stenosis involving the carotid or vertebral arteries. Justicifation of Admission Dx: Justifications for Admission: Justification of Admission Dx: N/A LULU ALEXIS MD Dec 26, 2020 10:46
[2020-12-26 11:05] VITALS: BP 171/77
--- NOTE | 2020-12-26 14:09 | NUR ---
SS following for discharge planning. SS reviewed pt chart and discussed with pt RN. Pt is a LTC resident from [facility] [facility], ; fax [phone], and is currently on room air. PT/OT/ST ordered. Pt is able to return when medically stable for discharge. SS will continue to follow for discharge planning.
--- NOTE | 2020-12-26 14:42 | NUR ---
SS following up with discharge planning. Nam contacted SS and notified SS that pt will need COVID19 test prior to return to facility. Pt's RN notified.
--- NOTE | 2020-12-26 14:45 | EKG ---
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
[2020-12-26 15:01] VITALS: BP 169/74
[2020-12-26] MEDS: CLOPIDOGREL BISULFATE 75 MG TABLET PO SCH (15:41)
[2020-12-26] MEDS: ASPIRIN ENTERIC COATED 325 MG TABLET.DR. PO SCH (15:41)
[2020-12-26] MEDS: OXYBUTYNIN CHLORIDE 5 MG TABLET PO SCH ×2 (15:42→20:40)
--- NOTE | 2020-12-26 15:58 | RAD ---
EXAMINATION: Magnetic resonance imaging (MRI) of the brain and brainstem without contrast 12/26/2020 2: 22 PM HISTORY: CVA TECHNIQUE: Multiplanar multi-weighted MRI of the brain and brainstem was performed without intravenou s contrast using the general brain protocol. COMPARISON: None available. FINDINGS: The scalp and calvarium are normal. The superior sagittal sinus demonstrates normal venous flow. The corpus callosum is normal in shape and signal intensity. The posterior fossa is unremarkable. The p ituitary and sella are normal. The brainstem and craniocervical junction are unremarkable. There are T2/FLAIR signal hyperintense foci in the periventricular and subcortical white matter with areas of confluence most suggestive of moderate chronic small vessel ischemic changes. There is a 1.3 cm area of diffusion signal hyperintensity in the right cheng radiata with associated low signal on ADC map and FLAIR signal hyperintensity suggestive of an acute infarct with cytotoxic edema. Punctate area of susceptibility artifact are identified in the left shira (series 9, image 9). This may represent a microhemorrhage versus tiny cavernoma. Ventricles, sulci and basal cisterns are prominent compatible with mild to moderate generalized cerebral volume loss. Ventricles are proportio leola sulcal volume loss suggestive of normal pressure hydrocephalus The paranasal sinuses are normal. The visualized portions of the mastoids are unremarkable. The orbi ts appear normal with exception of bilateral lens replacement. Normal flow voids are demonstrated in the carotid arteries and basilar artery. IMPRESSION: 1. There is a focus of diffusion signal hyperintensity involving the right cheng radiata compatible with acute infarct. There is associated cytotoxic edema without mass effect or hemorrhage. 2. Mild to moderate generalized cerebral volume loss. Degree of ventriculomegaly is out of proportion to sulcal volume loss as may be seen with normal pressure hydrocephalus. 3. There are T2/FLAIR signal hyperintense foci in the periventricular and subcortical white matter wi th areas of confluence most suggestive of moderate chronic small vessel ischemic changes. 4. Punctate focus of susceptibility artifact in the left hsira may represent an area of microhemorrhag e versus tiny cavernoma. FOR INTERNAL CODING PURPOSES Critical result: Findings discussed with Susie the patient's nurse, at 12/26/2020 3:55 PM. RESULT CODE: (C) Electronically signed by: Pao Nova MD (12/26/2020 3:56 PM) [id number]
[2020-12-26] MEDS: CARVEDILOL 12.5 MG TABLET. PO SCH (17:24)
[2020-12-26 19:12] VITALS: BP 144/67
[2020-12-26] MEDS: OLANZapine 5 MG TABLET PO SCH (20:40)
[2020-12-26] MEDS: ATORVASTATIN CALCIUM 40 MG TABLET. PO SCH (20:40)
[2020-12-26] MEDS: DONEPEZIL HCL 10 MG TABLET. PO SCH (20:41)
--- NOTE | 2020-12-26 21:48 | CARD ---
MR#: [id number] Date of Study: 12/26/2020 Ordering Physician: LULU ALEXIS, Referring Physician: LULU ALEXIS, Tech: Saadia Robertson [facility] APPROVED REPORT EXAM: Two-dimensional and M-mode echocardiogram with Doppler and color Doppler. Other Information Quality : AverageHR: 72bpm Rhythm : NSR INDICATION Dyspnea 2D DIMENSIONS RVDd3.0 (2.9-3.5cm)Left Atrium(2D)3.3 (1.6-4.0cm) IVSd1.2 (0.7-1.1cm)Aortic Root(2D)3.0 (2.0-3.7cm) LVDd3.8 (3.9-5.9cm)LVOT Diameter2.1 (1.8-2.4cm) PWd1.2 (0.7-1.1cm)LVDs2.3 (2.5-4.0cm) FS (%) 38.0 %SV41.6 ml LVEF(%)69.0 (>50%) Aortic Valve AoV Peak Ankit.222.4cm/sAoV VTI51.7cm AO Peak GR.19.8mmHgLVOT Peak Ankit.133.6cm/s AO Mean GR.9mmHgAVA (VMAX)2.07cm2 Mitral Valve MV E Epoiufhp50.0cm/sMV DECEL [id number] MV A Dvlbynqj887.3cm/sE/A Ratio0.6 Tricuspid Valve TR P. Blqncybj125oh/sTR Peak Gr.25mmHg Pulmonary Vein S1 Ywlaxmfu78.2cm/sD2 Dikzicww67.4cm/s PVa [id number] LEFT VENTRICLE The left ventricle is normal size. There is borderline to mild concentric left ventricular hypertroph y. The left ventricular systolic function is normal and the ejection fraction is within normal range. Estimated ejection fraction 65-70%. There is normal LV segmental wall motion. Transmitral Doppler fl ow pattern is Grade I-abnormal relaxation pattern. RIGHT VENTRICLE The right ventricle is normal size. There is normal right ventricular wall thickness. The right ventr icular systolic function is normal. ATRIA The left atrium size is normal. The right atrium size is normal. The interatrial septum is intact wit h no evidence for an atrial septal defect or patent foramen ovale as noted on 2-D or Doppler imaging. AORTIC VALVE The aortic valve is normal in structure and function. Doppler and Color Flow revealed no significant aortic regurgitation. There is no significant aortic valvular stenosis. MITRAL VALVE The mitral valve is normal in structure and function. There is no evidence of mitral valve prolapse. There is no mitral valve stenosis. Doppler and Color-flow revealed trace mitral regurgitation. TRICUSPID VALVE The tricuspid valve is normal in structure and function. Doppler and Color Flow revealed trace tricus pid regurgitation. Esitmated PAP 30 mmHg. There is no tricuspid valve stenosis. PULMONIC VALVE Doppler and Color Flow revealed no pulmonic valvular regurgitation. There is no pulmonic valvular edy nosis. GREAT VESSELS The aortic root is normal in size. The ascending aorta is normal in size. The IVC is normal in size a nd collapses >50% with inspiration. PERICARDIAL EFFUSION There is no evidence of significant pericardial effusion. Critical Notification Critical Value: No <Conclusion> The left ventricular systolic function is normal and the ejection fraction is within normal range. E stimated ejection fraction 65-70%. There is normal LV segmental wall motion. Signed by : Alexandr Farrell, Electronically Approved : 12/26/2020 21:47:44
[2020-12-26 22:48] VITALS: BP 137/63
[2020-12-27 03:00] VITALS: BP 146/74
[2020-12-27 07:00] VITALS: BP 152/71
[2020-12-27] MEDS: INSULIN LISPRO 300 UNITS/3 ML VIAL. SQ SCH ×3 (08:00→16:58)
[2020-12-27] MEDS ORDERED: ASPIRIN ENTERIC COATED 81 MG TABLET.DR. PO SCH (09:00)
--- NOTE | 2020-12-27 09:29 | PDOC ---
PROGRESS NOTES Date of Service DATE: 12/27/20 TIME: 09:26 Assessment Problems Medical Problems: (1) Facial droop Status: Acute (2) Renal insufficiency Status: Acute Lacunar infarct right cheng radiata Doubt normal pressure hydrocephalus. Left shira microhemorrhage versus tiny cavernoma. History of dementia and gait disorder Plan Aspirin, increased dose to 325 mg daily Statin Okay for discharge today Discussed with patient's son Subjective No complaints Objective Vital Signs Date Time Temp Pulse Resp B/P (MAP) Pulse Ox O2 Delivery O2 Flow Rate FiO2 12/27/20 07:00 97.4 62 20 152/71 (98) 99 Room Air 97.4 Intake and Output 12/27/20 07:00 Intake Total 1720 ml Output Total 400 ml Balance 1320 ml Intake Oral 720 ml IV Total 1000 ml Output Urine Total 400 ml # Voids 2 # Bowel Movements 1 PHYSICAL EXAM Alert. Oriented only to person. PERRL. EOMI. CN: no focal findings. Muscle tone: normal. Muscle strength: 4/5 DTR: 2+ Plantar reflex: Flexor Gait: not examined in bed. Sensory exam: no abnormal findings. No cerebellar signs elicited. Review of Relevant I have reviewed the following items shakeel (where applicable) has been applied. Labs Laboratory Tests Test 12/25/20 09:30 12/25/20 21:04 12/26/20 05:02 12/26/20 05:30 White Blood Count 5.5 x10^3/uL (4.0-11.0) 4.8 x10^3/uL (4.0-11.0) Red Blood Count 4.15 x10^6/uL (3.50-5.40) 3.97 x10^6/uL (3.50-5.40) Hemoglobin 12.2 g/dL (12.0-15.5) 12.0 g/dL (12.0-15.5) Hematocrit 37.1 % (36.0-47.0) 35.4 % (36.0-47.0) Mean Corpuscular Volume 89 fL (79-100) 89 fL (79-100) Mean Corpuscular Hemoglobin 30 pg (25-35) 30 pg (25-35) Mean Corpuscular Hemoglobin Concent 33 g/dL (31-37) 34 g/dL (31-37) Red Cell Distribution Width 14.4 % (11.5-14.5) 14.1 % (11.5-14.5) Platelet Count 256 x10^3/uL (140-400) 260 x10^3/uL (140-400) Neutrophils (%) (Auto) 67 % (31-73) 62 % (31-73) Lymphocytes (%) (Auto) 19 % (24-48) 20 % (24-48) Monocytes (%) (Auto) 8 % (0-9) 11 % (0-9) Eosinophils (%) (Auto) 6 % (0-3) 7 % (0-3) Basophils (%) (Auto) 1 % (0-3) 1 % (0-3) Neutrophils # (Auto) 3.6 x10^3/uL (1.8-7.7) 3.0 x10^3/uL (1.8-7.7) Lymphocytes # (Auto) 1.0 x10^3/uL (1.0-4.8) 1.0 x10^3/uL (1.0-4.8) Monocytes # (Auto) 0.4 x10^3/uL (0.0-1.1) 0.5 x10^3/uL (0.0-1.1) Eosinophils # (Auto) 0.3 x10^3/uL (0.0-0.7) 0.3 x10^3/uL (0.0-0.7) Basophils # (Auto) 0.0 x10^3/uL (0.0-0.2) 0.0 x10^3/uL (0.0-0.2) Sodium Level 141 mmol/L (136-145) 141 mmol/L (136-145) Potassium Level 3.5 mmol/L (3.5-5.1) 3.5 mmol/L (3.5-5.1) Chloride Level 102 mmol/L (98-107) 103 mmol/L (98-107) Carbon Dioxide Level 30 mmol/L (21-32) 29 mmol/L (21-32) Anion Gap 9 (6-14) 9 (6-14) Blood Urea Nitrogen 28 mg/dL (7-20) 22 mg/dL (7-20) Creatinine 1.4 mg/dL (0.6-1.0) 1.1 mg/dL (0.6-1.0) Estimated GFR (Cockcroft-Gault) 43.9 58.0 BUN/Creatinine Ratio 20 (6-20) Glucose Level 125 mg/dL (70-99) 93 mg/dL (70-99) Hemoglobin A1c 5.5 % (4.8-5.6) Calcium Level 9.9 mg/dL (8.5-10.1) 9.6 mg/dL (8.5-10.1) Total Bilirubin 0.4 mg/dL (0.2-1.0) Aspartate Amino Transf (AST/SGOT) 23 U/L (15-37) Alanine Aminotransferase (ALT/SGPT) 30 U/L (14-59) Alkaline Phosphatase 61 U/L (46-116) Creatine Kinase 46 U/L (26-192) Troponin I Quantitative < 0.017 ng/mL (0.000-0.055) OL-Rxe-H-Type Natriuretic Peptide 104 pg/mL (0-449) Total Protein 7.1 g/dL (6.4-8.2) Albumin 3.3 g/dL (3.4-5.0) Albumin/Globulin Ratio 0.9 (1.0-1.7) Triglycerides Level 86 mg/dL (0-150) Cholesterol Level 320 mg/dL (0-200) LDL Cholesterol, Calculated 223 mg/dL (0-100) VLDL Cholesterol, Calculated 17 mg/dL (0-40) Non-HDL Cholesterol Calculated 240 mg/dL (0-129) HDL Cholesterol 80 mg/dL (40-60) Cholesterol/HDL Ratio 4.0 Vitamin B12 Level 504 pg/mL (247-911) Thyroid Stimulating Hormone (TSH) 0.492 uIU/mL (0.358-3.74) Glucose (Fingerstick) 109 mg/dL (70-99) Phosphorus Level 3.9 mg/dL (2.6-4.7) Magnesium Level 1.8 mg/dL (1.8-2.4) Test 12/26/20 07:12 12/26/20 11:35 12/26/20 16:38 12/26/20 20:45 Glucose (Fingerstick) 106 mg/dL (70-99) 90 mg/dL (70-99) 134 mg/dL (70-99) 114 mg/dL (70-99) Test 12/27/20 07:47 Glucose (Fingerstick) 106 mg/dL (70-99) Laboratory Tests Test 12/26/20 11:35 12/26/20 16:38 12/26/20 20:45 12/27/20 07:47 Glucose (Fingerstick) 90 mg/dL (70-99) 134 mg/dL (70-99) 114 mg/dL (70-99) 106 mg/dL (70-99) Medications Current Medications Sennosides (Senna) 17.2 mg PRN BID PRN PO CONSTIPATION; Start 12/25/20 at 12:45 Docusate Sodium (Colace) 100 mg PRN DAILY PRN PO HARD STOOLS; Start 12/25/20 at 12:45; Status UNV Ondansetron HCl (Zofran) 4 mg PRN Q6HRS PRN IVP NAUSEA/VOMITING; Start 12/25/20 at 12:45 Insulin Human Lispro (HumaLOG) 0-7 UNITS TIDWMEALS SQ ; Start 12/25/20 at 17:00 Dextrose (Dextrose 50%-Water Syringe) 12.5 gm PRN Q15MIN PRN IV SEE COMMENTS; Start 12/25/20 at 12:45 Acetaminophen (Tylenol) 650 mg PRN Q4HRS PRN PO TEMP OVER 100.4F OR MILD PAIN; Start 12/25/20 at 12:45 Enoxaparin Sodium (Lovenox 30mg Syringe) 30 mg DAILY SQ Last administered on 12/26/20at 08:10; Start 12/26/20 at 09:00; Stop 12/26/20 at 16:27; Status DC Sodium Chloride 1,000 ml @ 70 mls/hr [id number] IV Last administered on 12/26/20at 20:39; Start 12/25/20 at 13:15 Atorvastatin Calcium (Lipitor) 80 mg QHS PO Last administered on 12/26/20at 20:40; Start 12/25/20 at 21:00 Acetaminophen (Tylenol) 650 mg PRN Q6HRS PRN PO MILD PAIN / TEMP > 100.3'F; Start 12/25/20 at 13:15; Stop 12/25/20 at 13:32; Status DC Aspirin (Ecotrin) 325 mg DAILYWBKFT PO Last administered on 12/26/20at 15:41; Start 12/26/20 at 08:00 Aspirin (Aspirin Rectal Supp) 300 mg PRN DAILY PRN VT IF UNABLE TO TAKE PO; St art 12/25/20 at 13:15 Hydralazine HCl (Apresoline Inj) 10 mg PRN Q4HRS PRN IVP ELEVATED BP, SEE COMMENTS Last administered on 12/26/20at 11:46; Start 12/26/20 at 09:45 Amlodipine Besylate (Norvasc) 10 mg DAILY PO Last administered on 12/26/20at 15:41; Start 12/26/20 at 13:00 Aspirin (Ecotrin) 81 mg DAILY PO ; Start 12/27/20 at 09:00; Stop 12/26/20 at 16:21; Status DC Carvedilol (Coreg) 12.5 mg BIDWMEALS PO Last administered on 12/26/20at 17:24; Start 12/26/20 at 17:00 Clopidogrel Bisulfate (Plavix) 75 mg DAILY PO Last administered on 12/26/20at 15:41; Start 12/26/20 at 13:00 Donepezil HCl (Aricept) 10 mg HS PO Last administered on 12/26/20at 20:41; Start 12/26/20 at 21:00 Olanzapine (ZyPREXA) 5 mg QHS PO Last administered on 12/26/20at 20:40; Start 12/26/20 at 21:00 Citalopram Hydrobromide (CeleXA) 20 mg DAILY PO ; Start 12/27/20 at 09:00 Oxybutynin Chloride (Ditropan) 5 mg BID PO Last administered on 12/26/20at 20:40; Start 12/26/20 at 13:30 Pantoprazole Sodium (Protonix) 40 mg DAILYAC PO ; Start 12/27/20 at 07:30 Enoxaparin Sodium (Lovenox 40mg Syringe) 40 mg DAILY SQ ; Start 12/27/20 at 09:00 Active Scripts Active Reported Zofran (Ondansetron Hcl) 4 Mg Tablet 1 Tab PO Q8HRS Protonix (Pantoprazole Sodium) 20 Mg Tablet.dr 1 Tab PO DAILY Oxybutynin Chloride Er (Oxybutynin Chloride) 10 Mg Tab.er.24 10 Mg PO DAILY Olanzapine 5 Mg Tablet 1 Tab PO QHS Metformin Hcl 500 Mg Tablet 500 Mg PO BIDWMEALS Lisinopril-Hctz 20-25 Mg Tab (Lisinopril/Hydrochlorothiazide) 1 Each Tablet 1 Tab PO DAILY Ferrous Sulfate 325 Mg Tablet 1 Tab PO DAILY 1 Days Escitalopram Oxalate 10 Mg Tablet 10 Mg PO DAILY Clopidogrel (Clopidogrel Bisulfate) 75 Mg Tablet 1 Tab PO DAILY Clonidine Hcl 0.2 Mg Tablet 0.2 Mg PO BID Carvedilol (Carvedilol) 12.5 Mg Tablet 12.5 Mg PO BIDWMEALS Aspirin Ec (Aspirin) 81 Mg Tablet.dr 81 Mg PO DAILY Aricept (Donepezil Hcl) 10 Mg Tablet 10 Mg PO HS Amlodipine Besylate 10 Mg Tablet 10 Mg PO DAILY Vitals/I & O Vital Sign - Last 24 Hours 12/26/20 12/26/20 12/26/20 12/26/20 11:05 11:46 15:01 15:41 Temp 98.7 98.2 98.7 98.2 Pulse 68 68 68 68 Resp 22 20 B/P (MAP) 171/77 (108) 171/77 169/74 (105) 169/74 Pulse Ox 98 97 O2 Delivery Room Air Room Air 12/26/20 12/26/20 12/26/20 12/26/20 17:24 19:12 20:15 22:48 Temp 98.1 97.9 98.1 97.9 Pulse 68 69 70 Resp 18 18 B/P (MAP) 169/74 144/67 (92) 137/63 (87) Pulse Ox 98 97 O2 Delivery Room Air Room Air Room Air 12/27/20 12/27/20 03:00 07:00 Temp 98.4 97.4 98.4 97.4 Pulse 76 62 Resp 20 20 B/P (MAP) 146/74 (98) 152/71 (98) Pulse Ox 100 99 O2 Delivery Room Air Room Air Intake and Output 12/26/20 12/26/20 12/27/20 15:00 23:00 07:00 Intake Total 120 ml 1600 ml 0 ml Output Total 400 ml Balance 120 ml 1200 ml 0 ml Images MRI of the brain and brainstem without contrast 12/26/2020 2:22 PM The scalp and calvarium are normal. The superior sagittal sinus demonstrates normal venous flow. The corpus callosum is normal in shape and signal intensity. The posterior fossa is unremarkable. The pituitary and sella are normal. The brainstem and craniocervical junction are unremarkable. There are T2/FLAIR signal hyperintense foci in the periventricular and subcortical white matter with areas of confluence most suggestive of moderate chronic small vessel ischemic changes. There is a 1.3 cm area of diffusion signal hyperintensity in the right cheng radiata with associated low signal on ADC map and FLAIR signal hyperintensity suggestive of an acute infarct with cytotoxic edema. Punctate area of susceptibility artifact are identified in the left shira (series 9, image 9). This may represent a microhemorrhage versus tiny cavernoma. Ventricles, sulci and basal cisterns are prominent compatible with mild to moderate generalized cerebral volume loss. Ventricles are proportionate sulcal volume loss suggestive of normal pressure hydrocephalus The paranasal sinuses are normal. The visualized portions of the mastoids are unremarkable. The orbits appear normal with exception of bilateral lens replacement. Normal flow voids are demonstrated in the carotid arteries and basilar artery. IMPRESSION: 1. There is a focus of diffusion signal hyperintensity involving the right cheng radiata compatible with acute infarct. There is associated cytotoxic edema without mass effect or hemorrhage. 2. Mild to moderate generalized cerebral volume loss. Degree of ventriculomegaly is out of proportion to sulcal volume loss as may be seen with normal pressure hydrocephalus. 3. There are T2/FLAIR signal hyperintense foci in the periventricular and subcortical white matter with areas of confluence most suggestive of moderate chronic small vessel ischemic changes. 4. Punctate focus of susceptibility artifact in the left shira may represent an area of microhemorrhage versus tiny cavernoma. Echocardiogram: LEFT VENTRICLE The left ventricle is normal size. There is borderline to mild concentric left ventricular hypertrophy. The left ventricular systolic function is normal and the ejection fraction is within normal range. Estimated ejection fraction 65- 70%. There is normal LV segmental wall motion. Transmitral Doppler flow pattern is Grade I-abnormal relaxation pattern. RIGHT VENTRICLE The right ventricle is normal size. There is normal right ventricular wall thickness. The right ventricular systolic function is normal. ATRIA The left atrium size is normal. The right atrium size is normal. The interatrial septum is intact with no evidence for an atrial septal defect or patent foramen ovale as noted on 2-D or Doppler imaging. AORTIC VALVE The aortic valve is normal in structure and function. Doppler and Color Flow revealed no significant aortic regurgitation. There is no significant aortic valvular stenosis. MITRAL VALVE The mitral valve is normal in structure and function. There is no evidence of mitral valve prolapse. There is no mitral valve stenosis. Doppler and Color-flow revealed trace mitral regurgitation. TRICUSPID VALVE The tricuspid valve is normal in structure and function. Doppler and Color Flow revealed trace tricuspid regurgitation. Esitmated PAP 30 mmHg. There is no tricuspid valve stenosis. PULMONIC VALVE Doppler and Color Flow revealed no pulmonic valvular regurgitation. There is no pulmonic valvular stenosis. GREAT VESSELS The aortic root is normal in size. The ascending aorta is normal in size. The IVC is normal in size and collapses >50% with inspiration. PERICARDIAL EFFUSION There is no evidence of significant pericardial effusion. Critical Notification Critical Value: No <Conclusion> The left ventricular systolic function is normal and the ejection fraction is within normal range. Estimated ejection fraction 65-70%. There is normal LV segmental wall motion. Justicifation of Admission Dx: Justifications for Admission: Justification of Admission Dx: N/A LULU ALEXIS MD Dec 27, 2020 09:29
[2020-12-27] MEDS: PANTOPRAZOLE 40 MG TABLET.DR. PO SCH (09:33)
[2020-12-27] MEDS: OXYBUTYNIN CHLORIDE 5 MG TABLET PO SCH ×2 (09:33→20:53)
[2020-12-27] MEDS: ASPIRIN ENTERIC COATED 325 MG TABLET.DR. PO SCH (09:33)
[2020-12-27] MEDS: ENOXAPARIN 40 MG/0.4 ML SYRINGE. SQ SCH (09:33)
[2020-12-27] MEDS: CITALOPRAM 20 MG TABLET. PO SCH (09:34)
[2020-12-27] MEDS: CARVEDILOL 12.5 MG TABLET. PO SCH ×2 (09:34→16:58)
[2020-12-27] MEDS: CLOPIDOGREL BISULFATE 75 MG TABLET PO SCH (09:34)
[2020-12-27] MEDS: IV 1/2 NORMAL SALINE 1,000 ML IV SCH ×2 (09:53→21:00)
[2020-12-27 11:05] VITALS: BP 163/73
--- NOTE | 2020-12-27 13:06 | PDOC ---
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 12/26: Afebrile overnight. She still NPO. She is asking for juice. No pain complaints no chest pain no shortness of breath. Systolic blood pressure near 200 mmHg. 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 CVA confirmed. Diet advanced to dysphagia 1. Not much appetite. COVID 19 results pending Vitals/I&O Vitals/I&O: Vital Signs Date Time Temp Pulse Resp B/P (MAP) Pulse Ox O2 Delivery O2 Flow Rate FiO2 12/27/20 11:05 97.8 73 18 163/73 (103) 98 Room Air 97.8 I & O 12/26/20 12/26/20 12/27/20 14:55 22:55 06:55 Intake Total 120 ml 1600 ml 0 ml Output Total 400 ml Balance 120 ml 1200 ml 0 ml Physical Exam General: Alert, Cooperative Heart: Regular rate, Normal S1, Normal S2 Lungs: Clear Abdomen: Normal bowel sounds, Soft Extremities: No clubbing, No cyanosis Skin: No rashes, No breakdown Labs Labs: Laboratory Tests Test 12/26/20 16:38 12/26/20 20:45 12/27/20 07:47 12/27/20 11:25 Glucose (Fingerstick) 134 mg/dL (70-99) 114 mg/dL (70-99) 106 mg/dL (70-99) 107 mg/dL (70-99) Assessment and Plan Assessmemt and Plan Problems Medical Problems: (1) Facial droop Status: Acute (2) Renal insufficiency Status: Acute Comment Review of Relevant I have reviewed the following items shakeel (where applicable) has been applied. Medications: Current Medications Medications (Trade) Dose Ordered Sig/Allyson Route PRN Reason Start Time Stop Time Status Last Admin Dose Admin Carvedilol (Coreg) 12.5 mg BIDWMEALS PO 12/26/20 17:00 12/27/20 09:34 Donepezil HCl (Aricept) 10 mg HS PO 12/26/20 21:00 12/26/20 20:41 Olanzapine (ZyPREXA) 5 mg QHS PO 12/26/20 21:00 12/26/20 20:40 Citalopram Hydrobromide (CeleXA) 20 mg DAILY PO 12/27/20 09:00 12/27/20 09:34 Oxybutynin Chloride (Ditropan) 5 mg BID PO 12/26/20 13:30 12/27/20 09:33 Pantoprazole Sodium (Protonix) 40 mg DAILYAC PO 12/27/20 07:30 12/27/20 09:33 Enoxaparin Sodium (Lovenox 40mg Syringe) 40 mg DAILY SQ 12/27/20 09:00 12/27/20 09:33 Images: MRI Brain: 1. There is a focus of diffusion signal hyperintensity involving the right cheng radiata compatible with acute infarct. There is associated cytotoxic e jaida without mass effect or hemorrhage. 2. Mild to moderate generalized cerebral volume loss. Degree of ventriculomegaly is out of proportion to sulcal volume loss as may be seen with normal pressure hydrocephalus. 3. There are T2/FLAIR signal hyperintense foci in the periventricular and subcortical white matter with areas of confluence most suggestive of moderate chronic small vessel ischemic changes. 4. Punctate focus of susceptibility artifact in the left shira may represent an area of microhemorrhage versus tiny cavernoma. Justifications for Admission Other Justification HTN urgency WENDY ALONZO MD Dec 27, 2020 13:06
--- NOTE | 2020-12-27 14:19 | NUR ---
SS following up with discharge planning. SS reviewed pt chart and discussed with pt RN. Pt is currently on room air. COVID19 test pending. PT/OT recommended long term unit. Pt is LTC resident from [facility], ; fax [phone]. Facility requesting COVID19 test result prior to returning. SS phoned and faxed clinical updates to [facility]. SS will continue to follow for discharge planning.
[2020-12-27 15:05] VITALS: BP 149/67
[2020-12-27 18:47] VITALS: BP 131/63
[2020-12-27] MEDS: OLANZapine 5 MG TABLET PO SCH (20:53)
[2020-12-27] MEDS: DONEPEZIL HCL 10 MG TABLET. PO SCH (20:53)
[2020-12-27] MEDS: ATORVASTATIN CALCIUM 40 MG TABLET. PO SCH (20:54)
[2020-12-27 23:00] VITALS: BP 145/65
[2020-12-28 03:25] VITALS: BP 151/71
[2020-12-28] MEDS: PANTOPRAZOLE 40 MG TABLET.DR. PO SCH (05:19)
[2020-12-28 07:00] VITALS: BP 181/84
[2020-12-28] MEDS: INSULIN LISPRO 300 UNITS/3 ML VIAL. SQ SCH ×3 (08:00→17:00)
[2020-12-28] MEDS: ASPIRIN ENTERIC COATED 325 MG TABLET.DR. PO SCH (10:08)
[2020-12-28] MEDS: OXYBUTYNIN CHLORIDE 5 MG TABLET PO SCH ×2 (10:10→20:58)
[2020-12-28] MEDS: CARVEDILOL 12.5 MG TABLET. PO SCH ×2 (10:10→18:06)
[2020-12-28] MEDS: CITALOPRAM 20 MG TABLET. PO SCH (10:10)
[2020-12-28] MEDS: CLOPIDOGREL BISULFATE 75 MG TABLET PO SCH (10:11)
[2020-12-28] MEDS: ENOXAPARIN 40 MG/0.4 ML SYRINGE. SQ SCH (10:13)
[2020-12-28 11:00] VITALS: BP 164/77
[2020-12-28] MEDS ORDERED: ATOR40TA59 PO (11:03)
--- NOTE | 2020-12-28 11:07 | PDOC ---
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 12/26: Afebrile overnight. She still NPO. She is asking for juice. No pain complaints no chest pain no shortness of breath. Systolic blood pressure near 200 mmHg. 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 12/27: CVA confirmed. Diet advanced to dysphagia 1. Not much appetite. COVID 19 results pending More alert today eating well. COVID-19 negative. She feels close to baseline. Vitals/I&O Vitals/I&O: Vital Signs Date Time Temp Pulse Resp B/P (MAP) Pulse Ox O2 Delivery O2 Flow Rate FiO2 12/28/20 10:10 162/73 12/28/20 10:10 73 12/28/20 07:00 98.3 20 97 Room Air 98.3 I & O 12/27/20 12/27/20 12/28/20 14:55 22:55 06:55 Intake Total 240 ml 360 ml 30 ml Balance 240 ml 360 ml 30 ml Physical Exam General: Alert, Cooperative Heart: Regular rate, Normal S1, Normal S2 Lungs: Clear Abdomen: Normal bowel sounds, Soft Extremities: No clubbing, No cyanosis Skin: No rashes, No breakdown Labs Labs: Laboratory Tests Test 12/27/20 11:25 12/27/20 16:31 12/27/20 21:12 12/28/20 08:40 Glucose (Fingerstick) 107 mg/dL (70-99) 100 mg/dL (70-99) 122 mg/dL (70-99) 104 mg/dL (70-99) Assessment and Plan Assessmemt and Plan Problems Medical Problems: (1) Facial droop Status: Acute (2) Renal insufficiency Status: Acute Comment Review of Relevant I have reviewed the following items shakeel (where applicable) has been applied. Justifications for Admission Other Justification HTN urgency WENDY ALONZO MD Dec 28, 2020 11:07
--- NOTE | 2020-12-28 11:07 | SNU/HH DC ---
DISCHARGE ORDERS DISCHARGE INFORMATION: DISCHARGE DATE: Dec 28, 2020 FINAL DIAGNOSIS Problems Medical Problems: (1) Facial droop Status: Acute (2) Renal insufficiency Status: Acute CONDITION ON DISCHARGE: Stable CODE STATUS: Code Status: Full POST DISCHARGE ORDERS: ACTIVITY ORDERS: Resume previous activity WEIGHT BEARING STATUS: Full weight bearing OTHER ORDERS: Continue Dysphagia I diet w/ honey thick liquids CHECKS AFTER DISCHARGE: CHECKS AFTER DISCHARGE: Check blood press - daily, Check your Temp as needed TREATMENT/EQUIPMENT ORDERS: Physical Therapy For: Evalulation/Treatment Occupational Therapy For: Evaluation/Treatment Speech Language Pathology For: Evaluation/Treatment DISCHARGE MEDICATIONS: Home Meds Active Scripts Atorvastatin Calcium (ATORVASTATIN CALCIUM) 40 Mg Tablet, 80 MG PO QHS for CVA for 90 Days, #180 TAB 1 Refill Prov:WENDY ALONZO MD 12/28/20 Reported Medications Ondansetron Hcl (ZOFRAN) 4 Mg Tablet, 1 TAB PO Q8HRS for N/V, #30 TAB 12/25/20 Pantoprazole Sodium (PROTONIX) 20 Mg Tablet.dr, 1 TAB PO DAILY for GERD, #30 TAB 12/25/20 Oxybutynin Chloride (OXYBUTYNIN CHLORIDE ER) 10 Mg Tab.er.24, 10 MG PO DAILY for bladder spasms, TAB.SR 12/25/20 Olanzapine (OLANZAPINE) 5 Mg Tablet, 1 TAB PO QHS for psychotic disorder, #30 TAB 2 Refills 12/25/20 Metformin Hcl (METFORMIN HCL) 500 Mg Tablet, 500 MG PO BIDWMEALS for ANTI- DIABETIC, TAB 0 Refills 12/25/20 Ferrous Sulfate (FERROUS SULFATE) 325 Mg Tablet, 1 TAB PO DAILY for supplement for 1 Day, #1 TAB 3 Refills 12/25/20 Escitalopram Oxalate (ESCITALOPRAM OXALATE) 10 Mg Tablet, 10 MG PO DAILY for ANTI-DEPRESSANT, #30 TAB 0 Refills 12/25/20 Clopidogrel Bisulfate (CLOPIDOGREL) 75 Mg Tablet, 1 TAB PO DAILY for blood clot prevention, #90 TAB 1 Refill 12/25/20 Clonidine Hcl (CLONIDINE HCL) 0.2 Mg Tablet, 0.2 MG PO BID for for SBP >165, TAB 12/25/20 Carvedilol (CARVEDILOL ) 12.5 Mg Tablet, 12.5 MG PO BIDWMEALS for CARDIAC, TAB 1/31/21 Aspirin (ASPIRIN EC) 81 Mg Tablet.dr, 81 MG PO DAILY for PPX, TAB.SR 12/25/20 Donepezil Hcl (ARICEPT) 10 Mg Tablet, 10 MG PO HS for dementia, TAB 12/25/20 Amlodipine Besylate (AMLODIPINE BESYLATE) 10 Mg Tablet, 10 MG PO DAILY for HTN, TAB 12/25/20 Discontinued Reported Medications Lisinopril/Hydrochlorothiazide (LISINOPRIL-HCTZ 20-25 MG TAB) 1 Each Tablet, 1 TAB PO DAILY for hPTN, #30 TAB 5 Refills 12/25/20 WENDY ALONZO MD Dec 28, 2020 11:07
[2020-12-28] MEDS ORDERED: ASPI-886 PO (11:36)
--- NOTE | 2020-12-28 11:36 | PDOC3 ---
Discharge Summary Visit Information Date of Admission: Dec 25, 2020 Date of Discharge: Dec 28, 2020 Admitting Diagnosis: Facial droop Final Diagnosis Problems Medical Problems: (1) Facial droop Status: Acute (2) Renal insufficiency Status: Acute Brief Hospital Course Allergies Allergies Coded Allergies Type Severity Reaction Last Updated Verified Sulfa (Sulfonamide Antibiotics) Allergy Intermediate 12/25/20 Yes latex Allergy Intermediate 12/25/20 Yes red dye Allergy Intermediate 12/25/20 Yes yellow dye Allergy Intermediate 12/25/20 Yes Vital Signs Vital Signs Date Time Temp Pulse Resp B/P (MAP) Pulse Ox O2 Delivery O2 Flow Rate FiO2 12/28/20 10:10 162/73 12/28/20 10:10 73 12/28/20 07:00 98.3 20 97 Room Air 98.3 Lab Results Laboratory Tests Test 12/26/20 11:35 12/26/20 15:52 12/26/20 16:38 12/26/20 20:45 Glucose (Fingerstick) 90 mg/dL (70-99) 134 mg/dL (70-99) 114 mg/dL (70-99) Coronavirus (PCR) Not detected (Not Detected) Test 12/27/20 07:47 12/27/20 11:25 12/27/20 16:31 12/27/20 21:12 Glucose (Fingerstick) 106 mg/dL (70-99) 107 mg/dL (70-99) 100 mg/dL (70-99) 122 mg/dL (70-99) Test 12/28/20 08:40 Glucose (Fingerstick) 104 mg/dL (70-99) Laboratory Tests Test 12/27/20 16:31 12/27/20 21:12 12/28/20 08:40 Glucose (Fingerstick) 100 mg/dL (70-99) 122 mg/dL (70-99) 104 mg/dL (70-99) Brief Hospital Course Ms Nails is a 80yo F w/ PMHx DM2, GERD, HTN, depression, prior CVA, 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 12/26: Afebrile overnight. She still NPO. She is asking for juice. No pain complaints no chest pain no shortness of breath. Systolic blood pressure near 200 mmHg. 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 12/27: CVA confirmed. Diet advanced to dysphagia 1. Not much appetite. COVID 19 results pending More alert today eating well. COVID-19 negative. She feels close to baseline. Problem list: Left sided weakness, slurred speech, facial droop - Possible stroke, her exam is not very impressive History of dementia and gait disorder DM2 GERD HTN Depression Prior CVA - no acute CT findings Dementia Consults: Neurology Greater than 30 minutes spent on d/c to SNF Discharge Information Condition at Discharge: Improved Follow Up: Weeks (1) Disposition/Orders: D/C to Another Facility Scheduled Amlodipine Besylate (Amlodipine Besylate) 10 Mg Tablet, 10 MG PO DAILY for HTN, (Reported) Entered as Reported by: MARCELLE MURRY RN on 12/25/201844 Last Taken: Unknown Dose on Unknown Date & Time Last Action: Continued on 12/26/201253 by WENDY ALONZO MD Aspirin (Aspirin Ec) 81 Mg Tablet.dr, 81 MG PO DAILY for PPX, (Reported) Entered as Reported by: MARCELLE MURRY RN on 12/25/201844 Last Taken: Unknown Dose on Unknown Date & Time Last Action: Continued on 12/26/201253 by WENDY ALONZO MD Atorvastatin Calcium (Atorvastatin Calcium) 40 Mg Tablet, 80 MG PO QHS for CVA for 90 Days, #180 Ref 1 Prescribed by: WENDY ALONZO MD on 12/28/20 1103 Carvedilol (Carvedilol ) 12.5 Mg Tablet, 12.5 MG PO BIDWMEALS for CARDIAC, (Reported) Entered as Reported by: MARCELLE MURRY RN on 12/25/201844 Last Taken: Unknown Dose on Unknown Date & Time Last Action: Continued on 12/26/201253 by WENDY ALONZO MD Clonidine Hcl (Clonidine Hcl) 0.2 Mg Tablet, 0.2 MG PO BID for for SBP >165, (Reported) Entered as Reported by: MARCELLE MURRY RN on 12/25/201844 Last Taken: Unknown Dose on Unknown Date & Time Last Action: New Order on 12/25/201844 by MARCELLE MURRY RN Clopidogrel Bisulfate (Clopidogrel) 75 Mg Tablet, 1 TAB PO DAILY for blood clot prevention, #90 Ref 1 (Reported) Entered as Reported by: MARCELLE MURRY RN on 12/25/201844 Last Taken: Unknown Dose on Unknown Date & Time Last Action: Continued on 12/26/204 by WENDY ALONZO MD Donepezil Hcl (Aricept) 10 Mg Tablet, 10 MG PO HS for dementia, (Reported) Entered as Reported by: MARCELLE MURRY RN on 12/25/201844 Last Taken: Unknown Dose on Unknown Date & Time Last Action: Continued on 12/26/201253 by WENDY ALONZO MD Escitalopram Oxalate (Escitalopram Oxalate) 10 Mg Tablet, 10 MG PO DAILY for ANTI-DEPRESSANT, #30 Ref 0 (Reported) Entered as Reported by: MARCELLE MURRY RN on 12/25/201844 Last Taken: Unknown Dose on Unknown Date & Time Last Action: Converted on 12/26/201253 by WENDY ALONZO MD Ferrous Sulfate (Ferrous Sulfate) 325 Mg Tablet, 1 TAB PO DAILY for supplement for 1 Days, #1 Ref 3 (Reported) Entered as Reported by: MARCELLE MURRY RN on 12/25/201844 Last Taken: Unknown Dose on Unknown Date & Time Last Action: New Order on 12/25/201844 by MARCELLE MURRY RN Metformin Hcl (Metformin Hcl) 500 Mg Tablet, 500 MG PO BIDWMEALS for ANTI- DIABETIC, Ref 0 (Reported) Entered as Reported by: MARCELLE MURRY RN on 12/25/201844 Last Taken: Unknown Dose on Unknown Date & Time Last Action: New Order on 12/25/201844 by MARCELLE MURRY RN Olanzapine (Olanzapine) 5 Mg Tablet, 1 TAB PO QHS for psychotic disorder, #30 Ref 2 (Reported) Entered as Reported by: MARCELLE MURRY RN on 12/25/201844 Last Taken: Unknown Dose on Unknown Date & Time Last Action: Continued on 12/26/201253 by WENDY ALONZO MD Ondansetron Hcl (Zofran) 4 Mg Tablet, 1 TAB PO Q8HRS for N/V, #30 (Reported) Entered as Reported by: MARCELLE MURRY RN on 12/25/201844 Last Taken: Unknown Dose on Unknown Date & Time Last Action: New Order on 12/25/201844 by MARCELLE MURRY RN Oxybutynin Chloride (Oxybutynin Chloride Er) 10 Mg Tab.er.24, 10 MG PO DAILY for bladder spasms, (Reported) Entered as Reported by: MARCELLE MURRY RN on 12/25/201844 Last Taken: Unknown Dose on Unknown Date & Time Last Action: Converted on 12/26/20 1254 by WENDY ALONZO MD Pantoprazole Sodium (Protonix) 20 Mg Tablet.dr, 1 TAB PO DAILY for GERD, #30 (Reported) Entered as Reported by: MARCELLE MURRY RN on 12/25/201844 Last Taken: Unknown Dose on Unknown Date & Time Last Action: Converted on 12/26/201253 by WENDY ALONZO MD Discontinued Medications Lisinopril/Hydrochlorothiazide (Lisinopril-Hctz 20-25 Mg Tab) 1 Each Tablet, 1 TAB PO DAILY for hPTN, #30 Ref 5 (Reported) Entered as Reported by: MARCELLE MURRY RN on 12/25/201844 Last Taken: Unknown Dose on Unknown Date & Time Last Action: New Order on 12/25/201844 by MARCELLE MURRY RN Justicifation of Admission Dx: Justifications for Admission: Justification of Admission Dx: N/A WENDY ALONZO MD Dec 28, 2020 11:36
--- NOTE | 2020-12-28 12:50 | NUR ---
SS following up with discharge planning. SS reviewed pt chart and discussed with pt RN. Pt is currently on room air. Pt is LTC resident from [facility], ; fax [phone]. Discharge orders received for return to facility. SS phoned and faxed discharge orders to [facility]. SS currently awaiting transportation time from facility. Pt, pt's RN, and pt's family notified.
--- NOTE | 2020-12-28 12:51 | PDOC ---
PROGRESS NOTES Date of Service DATE: 12/28/20 TIME: 12:48 Assessment Problems Medical Problems: (1) Facial droop Status: Acute (2) Renal insufficiency Status: Acute Lacunar infarct right cheng radiata, focal findings have already resolved Doubt normal pressure hydrocephalus. Left shira microhemorrhage versus tiny cavernoma. History of dementia and gait disorder Plan Aspirin, increased dose to 325 mg daily Statin Okay for discharge Subjective "Let me sleep." Objective Vital Signs Date Time Temp Pulse Resp B/P (MAP) Pulse Ox O2 Delivery O2 Flow Rate FiO2 12/28/20 11:00 99.0 72 20 164/77 (106) 98 Room Air 99.0 Intake and Output 12/28/20 06:59 Intake Total 630 ml Balance 630 ml Intake Oral 630 ml # Voids 7 PHYSICAL EXAM Alert. Oriented only to person. PERRL. EOMI. CN: no focal findings. Muscle tone: normal. Muscle strength: 4/5 DTR: 2+ Plantar reflex: Flexor Gait: not examined in bed. Sensory exam: no abnormal findings. No cerebellar signs elicited. Review of Relevant I have reviewed the following items shakeel (where applicable) has been applied. Labs Laboratory Tests Test 12/26/20 15:52 12/26/20 16:38 12/26/20 20:45 12/27/20 07:47 Coronavirus (PCR) Not detected (Not Detected) Glucose (Fingerstick) 134 mg/dL (70-99) 114 mg/dL (70-99) 106 mg/dL (70-99) Test 12/27/20 11:25 12/27/20 16:31 12/27/20 21:12 12/28/20 08:40 Glucose (Fingerstick) 107 mg/dL (70-99) 100 mg/dL (70-99) 122 mg/dL (70-99) 104 mg/dL (70-99) Test 12/28/20 12:02 Glucose (Fingerstick) 119 mg/dL (70-99) Laboratory Tests Test 12/27/20 16:31 12/27/20 21:12 12/28/20 08:40 12/28/20 12:02 Glucose (Fingerstick) 100 mg/dL (70-99) 122 mg/dL (70-99) 104 mg/dL (70-99) 119 mg/dL (70-99) Medications Current Medications Sennosides (Senna) 17.2 mg PRN BID PRN PO CONSTIPATION; Start 12/25/20 at 12:45 Docusate Sodium (Colace) 100 mg PRN DAILY PRN PO HARD STOOLS; Start 12/25/20 at 12:45; Status UNV Ondansetron HCl (Zofran) 4 mg PRN Q6HRS PRN IVP NAUSEA/VOMITING; Start 12/25/20 at 12:45 Insulin Human Lispro (HumaLOG) 0-7 UNITS TIDWMEALS SQ ; Start 12/25/20 at 17:00 Dextrose (Dextrose 50%-Water Syringe) 12.5 gm PRN Q15MIN PRN IV SEE COMMENTS; Start 12/25/20 at 12:45 Acetaminophen (Tylenol) 650 mg PRN Q4HRS PRN PO TEMP OVER 100.4F OR MILD PAIN; Start 12/25/20 at 12:45 Enoxaparin Sodium (Lovenox 30mg Syringe) 30 mg DAILY SQ Last administered on 12/26/20at 08:10; Start 12/26/20 at 09:00; Stop 12/26/20 at 16:27; Status DC Sodium Chloride 1,000 ml @ 70 mls/hr [id number] IV Last administered on 12/27/20at 21:00; Start 12/25/20 at 13:15 Atorvastatin Calcium (Lipitor) 80 mg QHS PO Last administered on 12/27/20at 20:54; Start 12/25/20 at 21:00 Acetaminophen (Tylenol) 650 mg PRN Q6HRS PRN PO MILD PAIN / TEMP > 100.3'F; Start 12/25/20 at 13:15; Stop 12/25/20 at 13:32; Status DC Aspirin (Ecotrin) 325 mg DAILYWBKFT PO Last administered on 12/28/20at 10:08; Start 12/26/20 at 08:00 Aspirin (Aspirin Rectal Supp) 300 mg PRN DAILY PRN IN IF UNABLE TO TAKE PO; Start 12/25/20 at 13:15 Hydralazine HCl (Apresoline Inj) 10 mg PRN Q4HRS PRN IVP ELEVATED BP, SEE COMMENTS Last administered on 12/26/20at 11:46; Start 12/26/20 at 09:45 Amlodipine Besylate (Norvasc) 10 mg DAILY PO Last administered on 12/28/20at 10:10; Start 12/26/20 at 13:00 Aspirin (Ecotrin) 81 mg DAILY PO ; Start 12/27/20 at 09:00; Stop 12/26/20 at 1 6:21; Status DC Carvedilol (Coreg) 12.5 mg BIDWMEALS PO Last administered on 12/28/20 10:10; Start 12/26/20 at 17:00 Clopidogrel Bisulfate (Plavix) 75 mg DAILY PO Last administered on 12/28/20at 10:11; Start 12/26/20 at 13:00 Donepezil HCl (Aricept) 10 mg HS PO Last administered on 12/27/20at 20:53; Start 12/26/20 at 21:00 Olanzapine (ZyPREXA) 5 mg QHS PO Last administered on 12/27/20at 20:53; Start 12/26/20 at 21:00 Citalopram Hydrobromide (CeleXA) 20 mg DAILY PO Last administered on 12/28/20at 10:10; Start 12/27/20 at 09:00 Oxybutynin Chloride (Ditropan) 5 mg BID PO Last administered on 12/28/20 10:10; Start 12/26/20 at 13:30 Pantoprazole Sodium (Protonix) 40 mg DAILYAC PO Last administered on 12/28/20at 05:19; Start 12/27/20 at 07:30 Enoxaparin Sodium (Lovenox 40mg Syringe) 40 mg DAILY SQ Last administered on 12/28/20at 10:13; Start 12/27/20 at 09:00 Active Scripts Active Aspirin Ec (Aspirin) 81 Mg Tablet. 325 Mg PO DAILY 30 Days Atorvastatin Calcium 40 Mg Tablet 80 Mg PO QHS 90 Days Reported Zofran (Ondansetron Hcl) 4 Mg Tablet 1 Tab PO Q8HRS Protonix (Pantoprazole Sodium) 20 Mg Tablet.dr 1 Tab PO DAILY Oxybutynin Chloride Er (Oxybutynin Chloride) 10 Mg Tab.er.24 10 Mg PO DAILY Olanzapine 5 Mg Tablet 1 Tab PO QHS Metformin Hcl 500 Mg Tablet 500 Mg PO BIDWMEALS Ferrous Sulfate 325 Mg Tablet 1 Tab PO DAILY 1 Days Escitalopram Oxalate 10 Mg Tablet 10 Mg PO DAILY Clopidogrel (Clopidogrel Bisulfate) 75 Mg Tablet 1 Tab PO DAILY Clonidine Hcl 0.2 Mg Tablet 0.2 Mg PO BID Carvedilol (Carvedilol) 12.5 Mg Tablet 12.5 Mg PO BIDWMEALS Aricept (Donepezil Hcl) 10 Mg Tablet 10 Mg PO HS Amlodipine Besylate 10 Mg Tablet 10 Mg PO DAILY Vitals/I & O Vital Sign - Last 24 Hours 12/27/20 12/27/20 12/27/20 12/27/20 15:05 16:58 18:47 19:52 Temp 98.1 97.9 98.1 97.9 Pulse 63 63 65 Resp 20 18 B/P (MAP) 149/67 (94) 149/67 131/63 (85) Pulse Ox 99 98 O2 Delivery Room Air Room Air Room Air 12/27/20 12/28/20 12/28/20 12/28/20 23:00 03:25 07:00 10:10 Temp 99.0 98.6 98.3 99.0 98.6 98.3 Pulse 71 66 75 73 Resp 18 20 20 B/P (MAP) 145/65 (91) 151/71 (97) 181/84 (116) 181/84 Pulse Ox 97 97 97 O2 Delivery Room Air Room Air Room Air 12/28/20 12/28/20 10:10 11:00 Temp 99.0 99.0 Pulse 72 Resp 20 B/P (MAP) 162/73 164/77 (106) Pulse Ox 98 O2 Delivery Room Air Intake and Output 12/27/20 12/27/20 12/28/20 14:59 22:59 06:59 Intake Total 240 ml 360 ml 30 ml Balance 240 ml 360 ml 30 ml Justicifation of Admission Dx: Justifications for Admission: Justification of Admission Dx: N/A LULU ALEXIS MD Dec 28, 2020 12:51
--- NOTE | 2020-12-28 12:56 | NUR ---
SS following up with discharge planning. Nam contacted SS and reported that they do not have a bed available for pt today. They reported that they will take pt back tomorrow and have scheduled transportation for tomorrow, 12/29/2020 at 1000. Pt, pt's son, and pt's RN notified.
[2020-12-28 15:00] VITALS: BP 150/67
[2020-12-28 19:55] VITALS: BP 137/56
[2020-12-28] MEDS: ATORVASTATIN CALCIUM 40 MG TABLET. PO SCH (20:58)
[2020-12-28] MEDS: DONEPEZIL HCL 10 MG TABLET. PO SCH (20:58)
[2020-12-28] MEDS: OLANZapine 5 MG TABLET PO SCH (20:58)
[2020-12-28 22:11] VITALS: BP 153/65
[2020-12-29 03:01] VITALS: BP 142/59
[2020-12-29 07:00] VITALS: BP 186/79
--- NOTE | 2020-12-29 07:43 | PDOC ---
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 12/26: Afebrile overnight. She still NPO. She is asking for juice. No pain complaints no chest pain no shortness of breath. Systolic blood pressure near 200 mmHg. 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 12/27: CVA confirmed. Diet advanced to dysphagia 1. Not much appetite. COVID 19 results pending 12/28: More alert today eating well. COVID-19 negative. She feels close to baseline. 12/29: Patient seen and evaluated. She was unable to get transportation last night. Transportation set up for this morning. Discharged on aspirin and statin. >30 minutes spent managing the d/c of this patient. Vitals/I&O Vitals/I&O: Vital Signs Date Time Temp Pulse Resp B/P (MAP) Pulse Ox O2 Delivery O2 Flow Rate FiO2 12/29/20 03:01 97.9 68 18 142/59 (86) 95 Room Air 97.9 I & O 12/28/20 12/28/20 12/29/20 15:00 23:00 07:00 Intake Total 520 ml 400 ml 180 ml Output Total 325 ml Balance 520 ml 75 ml 180 ml Physical Exam General: Alert, Cooperative Heart: Regular rate, Normal S1, Normal S2 Lungs: Clear Abdomen: Normal bowel sounds, Soft Extremities: No clubbing, No cyanosis Skin: No rashes, No breakdown Labs Labs: Laboratory Tests Test 12/28/20 08:40 12/28/20 12:02 12/28/20 17:05 12/28/20 21:22 Glucose (Fingerstick) 104 mg/dL (70-99) 119 mg/dL (70-99) 101 mg/dL (70-99) 108 mg/dL (70-99) Test 12/29/20 07:28 Glucose (Fingerstick) 104 mg/dL (70-99) Assessment and Plan Assessmemt and Plan Problems Medical Problems: (1) Facial droop Status: Acute (2) Renal insufficiency Status: Acute Comment Review of Relevant I have reviewed the following items shakeel (where applicable) has been applied. Justifications for Admission Other Justification HTN urgency PARMJIT CAMERON MD Dec 29, 2020 07:43
[2020-12-29] MEDS: INSULIN LISPRO 300 UNITS/3 ML VIAL. SQ SCH (08:00)
[2020-12-29] MEDS: ASPIRIN ENTERIC COATED 325 MG TABLET.DR. PO SCH (08:48)
[2020-12-29] MEDS: OXYBUTYNIN CHLORIDE 5 MG TABLET PO SCH (08:48)
[2020-12-29 08:49] VITALS: BP 186/79
[2020-12-29] MEDS: CITALOPRAM 20 MG TABLET. PO SCH (08:49)
[2020-12-29] MEDS: CLOPIDOGREL BISULFATE 75 MG TABLET PO SCH (08:49)
[2020-12-29] MEDS: CARVEDILOL 12.5 MG TABLET. PO SCH (08:49)
[2020-12-29] MEDS: PANTOPRAZOLE 40 MG TABLET.DR. PO SCH (08:49)
[2020-12-29] MEDS: ENOXAPARIN 40 MG/0.4 ML SYRINGE. SQ SCH (08:53)
--- NOTE | 2020-12-29 10:49 | NUR ---
Discharge Note: CLAUDIO RAMESH A2 [facility] Discharge instructions and discharge home medications reviewed with Family Member and a copy given. All questions have been answered and understanding verbalized. The following instructions and handouts were given: atorvastatin, diabetes, hypertension, hyperlipidemia, and life after stroke packet. Patient discharged to [facility] with transport via wheelchair.
== END 2020-12-29 10:30 | DRG 64 ==
LOC: ER 09:08 → ED HOLD 11:14 → 2 SOUTH 12:28
PROVIDERS: ADMIT Internal Medicine; ATTEND Internal Medicine
DX: I63.81 Other cerebral infarction due to occlusion or stenosis of small artery (principal); G93.6 Cerebral edema; G93.41 Metabolic encephalopathy; E11.9 Type 2 diabetes mellitus without complications; E78.5 Hyperlipidemia, unspecified; F03.90 Unspecified dementia, unspecified severity, without behavioral disturbance, psychotic disturbance, mood disturbance, and anxiety; F32.9 Major depressive disorder, single episode, unspecified; G93.89 Other specified disorders of brain; Z20.822 Contact with and (suspected) exposure to COVID-19; I11.9 Hypertensive heart disease without heart failure; K21.9 Gastro-esophageal reflux disease without esophagitis; N28.9 Disorder of kidney and ureter, unspecified; R13.10 Dysphagia, unspecified; Z86.73 Personal history of transient ischemic attack (TIA), and cerebral infarction without residual deficits; Z88.2 Allergy status to sulfonamides; Z88.8 Allergy status to other drugs, medicaments and biological substances; Z91.040 Latex allergy status
CPT/HCPCS: 36415; 70450; 70551; 71045; 80048; 80053; 80061; 81001; 82550; 82607; 82962; 83036; 83735; 83880; 84100; 84443; 84484; 85025; 93005; 93306; 93880; 99285; J0360; J1650; J3490; U0003; 92526-GN; 92610-GN; 97530-GP; 97535-GO; G0378

== ENCOUNTER 2021-06-09 17:10 | Emergency (ER) | payer MEDICARE ==
[~2021-06-09] VITALS: Ht 170.2 cm; Wt 81.8 kg
[~2021-06-09 17:10] MED LIST: AMLO-187 PO; ASPI-886 PO; ATOR40TA59 PO; CARV12.511 PO; CLON0.2T PO; CLOP75TA PO; DONE10TA61 PO; ESCITALOPRAM OX10 MG PO; FERR325T14 PO; LISI1TAB20 PO; METF500T16 PO; OLAN5TAB67 PO; ONDA4TAB7 PO; OXYB10TA26 PO; PANT20TA2 PO
--- NOTE | 2021-06-09 17:37 | EKG ---
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
[2021-06-09] MEDS ORDERED: IV NORMAL SALINE 1000ML BAG 1,000 ML IV ONE (17:45)
[2021-06-09 17:58] LABS: BASO # 0.1 x10^3/uL (0.0-0.2); BASO % 1 % (0-3); EOS # 0.3 x10^3/uL (0.0-0.7); EOS % 5 % (0-3); HEMATOCRIT 36.5 % (36.0-47.0); HEMOGLOBIN 12.1 g/dL (12.0-15.5); LYMPH # 1.1 x10^3/uL (1.0-4.8); LYMPH % 18 % (24-48); MEAN CORPUSCULAR HEMOGLOBIN 30 pg (25-35); MEAN CORPUSCULAR HGB CONC 33 g/dL (31-37); MEAN CORPUSCULAR VOLUME 91 fL (79-100); MONO # 0.5 x10^3/uL (0.0-1.1); MONO % 8 % (0-9); NEUT # 4.4 x10^3/uL (1.8-7.7); NEUT % 69 % (31-73); PLATELET COUNT 326 x10^3/uL (140-400); RED BLOOD COUNT 4.02 x10^6/uL (3.50-5.40); RED CELL DISTRIBUTION WIDTH 14.8 % (11.5-14.5); WHITE BLOOD COUNT 6.3 x10^3/uL (4.0-11.0)
[2021-06-09 17:59] LABS: BILIRUBIN,URINE NEGATIVE (NEG); CLARITY,URINE CLOUDY; COLOR,URINE YELLOW; NITRITE,URINE NEGATIVE (NEG); PROTEIN,URINE NEGATIVE (NEG-TRACE)
[2021-06-09 18:07] LABS: CREATININE 0.8 mg/dL (0.6-1.0); GFR 83.5; POTASSIUM 4.5 mmol/L (3.5-5.1)
[2021-06-09 18:10] LABS: AMORPHOUS SEDIMENT,UR PRESENT /HPF; HYALINE CASTS, URINE MODERATE /HPF; RBC,URINE 0 /HPF (0-2)
[2021-06-09 18:11] LABS: BACTERIA,URINE 0 /HPF (0-FEW)
[2021-06-09 18:12] LABS: ALBUMIN 3.1 g/dL (3.4-5.0); ALBUMIN/GLOBULIN RATIO 0.9 (1.0-1.7); MAGNESIUM 1.8 mg/dL (1.8-2.4); TOTAL BILIRUBIN 0.4 mg/dL (0.2-1.0); TOTAL PROTEIN 6.7 g/dL (6.4-8.2)
[2021-06-09] MEDS ORDERED: IOHEXOL 300 MG/ML 100ML VIAL. IV ONE (18:15)
[2021-06-09] MEDS ORDERED: CONTRAST GIVEN. MC PRN (18:30)
--- NOTE | 2021-06-09 19:32 | RAD ---
EXAMINATION: CT abdomen and pelvis with IV contrast. INDICATION:81 years, Female, lower abdominal pain. TECHNIQUE: Axial CT images of the abdomen and pelvis were obtained. Coronal and sagittal reformatted performed. COMPARISON: None. Exposure: One or more of the following individualized dose reduction techniques were utilized for thi s examination: 1. Automated exposure control 2. Adjustment of the mA and/or kV according to patient size 3. Use of iterative reconstruction technique. FINDINGS: LOWER CHEST: Bibasilar subsegmental atelectasis. ABDOMEN/PELVIS: Focal fat infiltration adjacent to the falciform ligament. Otherwise unremarkable liver. Gallbladder and biliary ducts are unremarkable. Spleen is normal. Mildly atrophic pancreatic parenchyma. No adren al nodule. No hydronephrosis in either kidney. There is a 5 mm nonobstructing calculus in the interpo lar right kidney. Multifocal bilateral cortical scarring. Subcentimeter hypodensities in both renal c ortices; too small to characterize. Complex cystic lesions with eccentric calcifications in the lower pole kidneys. Multiple indeterminate bilateral hypodense lesions for example right upper pole lesion measures 1.6 cm. Solid enhancing lesion exophytic from the lower pole left kidney, measures 1.9 cm. No bowel obstruction or wall thickening. Colonic diverticulosis without diverticulitis. Appendix is n ot visualized. Mild aortoiliac atherosclerotic calcifications without significant narrowing or dilata tion. Mesenteric arteries and portal vein are patent. No lymphadenopathy in the abdomen by size crite radha. Unremarkable urinary bladder. Hysterectomy. MUSCULOSKELETAL: No acute osseous process. Multilevel Schmorl's nodes. Diffuse osteopenia. Postsurgical changes along the anterior abdominal wall. IMPRESSION: 1. No acute intra-abdominal findings. 2. Solid enhancing 1.9 cm lesion exophytic from the lower pole left kidney, suspicious for renal mandeep l cancer. Recommend further evaluation with MRI renal mass protocol. 3. Additional, bilateral renal cortical hypodense lesions, indeterminate. These can be further evalu ated by the recommended MRI. 4. Nonobstructing 5 mm right nephrolithiasis. 5. Colonic diverticulosis without diverticulitis. Electronically signed by: Sherly Bailey MD (06/09/2021 7:30 PM) [facility]
--- NOTE | 2021-06-09 20:11 | ED.ADGEN ---
Past Medical History Past Medical History: Anemia, CVA, Dementia, Depression, Diabetes-Type II, GERD, Hypertension Additional Past Medical Histor: hemiplegia, dyphagia, psychosis, cognitive communication defecit Past Surgical History: Hysterectomy, Other Additional Past Surgical Histo: eyes Smoking Status: Never Smoker Alcohol Use: None General Adult EDM: Chief Complaint: ABDOMINAL PAIN HPI: HPI: Patient is a 81 year old AA female, brought to the emergency department via coat padder's transport service from [facility] with complaints of lower abdominal pain since this morning. Patient denies any nausea, vomiting, diarrhea, dysuria, hematuria, or increased urinary frequency. She denies any chest pain, cough, shortness of breath, fever, constipation, back pain, or headache. According the patient detention paperwork that was sent with her the patient has a history of dementia therefore HPI is limited. Patient does currently rates her pain 8 out of 10 on the pain scale, she states the pain is worse if you touch her abdomen she does not report any alleviating factors. Review of Systems: Review of Systems: Complete ROS is negative unless otherwise noted in HPI. Current Medications: Current Medications Medications (Trade) Dose Ordered Sig/Allyson Start Time Stop Time Status Last Admin Dose Admin Info (CONTRAST GIVEN -- Rx MONITORING) 1 each PRN DAILY PRN 06/09/21 18:30 06/11/21 18:29 Iohexol (Omnipaque 300 Mg/ml) 75 ml 1X ONCE 06/09/21 18:15 06/09/21 18:16 DC 06/09/21 18:29 75 ML Sodium Chloride 1,000 ml @ 500 mls/hr 1X ONCE 06/09/21 17:45 06/09/21 19:44 DC 06/09/21 17:50 500 MLS/HR Allergies: Allergies: Allergies Coded Allergies Type Severity Reaction Last Updated Verified Sulfa (Sulfonamide Antibiotics) Allergy Intermediate 12/25/20 Yes latex Allergy Intermediate 12/25/20 Yes red dye Allergy Intermediate 12/25/20 Yes yellow dye Allergy Intermediate 12/25/20 Yes Physical Exam: PE: See Above Constitutional: Well developed, well nourished, no acute distress, non-toxic appearance. [] HENT: Normocephalic, atraumatic, bilateral external ears normal, nose normal. [] Eyes: PERRLA, EOMI, conjunctiva normal, no discharge. [] Neck: Normal range of motion, no stridor. [] Cardiovascular:Heart rate regular rhythm Lungs & Thorax: Respirations even and unlabored, no retractions, no respiratory distress Abdomen: soft, left lower quadrant and right lower quadrant tenderness to palpation, no palpable masses, no rebound tenderness, no guarding, Skin: Warm, dry, no erythema, no rash. [] Extremities: No cyanosis, ROM intact, no edema. [] Neurologic: Alert and oriented X 3, normal motor, normal sensory, no focal deficits noted. [] Psychologic: Affect normal, judgement normal, mood normal. [] Current Patient Data: Labs: Laboratory Tests Test 06/09/21 17:45 White Blood Count 6.3 x10^3/uL (4.0-11.0) Red Blood Count 4.02 x10^6/uL (3.50-5.40) Hemoglobin 12.1 g/dL (12.0-15.5) Hematocrit 36.5 % (36.0-47.0) Mean Corpuscular Volume 91 fL (79-100) Mean Corpuscular Hemoglobin 30 pg (25-35) Mean Corpuscular Hemoglobin Concent 33 g/dL (31-37) Red Cell Distribution Width 14.8 % (11.5-14.5) H Platelet Count 326 x10^3/uL (140-400) Neutrophils (%) (Auto) 69 % (31-73) Lymphocytes (%) (Auto) 18 % (24-48) L Monocytes (%) (Auto) 8 % (0-9) Eosinophils (%) (Auto) 5 % (0-3) H Basophils (%) (Auto) 1 % (0-3) Neutrophils # (Auto) 4.4 x10^3/uL (1.8-7.7) Lymphocytes # (Auto) 1.1 x10^3/uL (1.0-4.8) Monocytes # (Auto) 0.5 x10^3/uL (0.0-1.1) Eosinophils # (Auto) 0.3 x10^3/uL (0.0-0.7) Basophils # (Auto) 0.1 x10^3/uL (0.0-0.2) Urine Collection Type U cath Urine Color Yellow Urine Clarity Cloudy Urine pH 7.0 (<5.0-8.0) Urine Specific [place] 1.020 (1.000-1.030) Urine Protein Negative mg/dL (NEG-TRACE) Urine Glucose (UA) Negative mg/dL (NEG) Urine Ketones (Stick) Negative mg/dL (NEG) Urine Blood Negative (NEG) Urine Nitrite Negative (NEG) Urine Bilirubin Negative (NEG) Urine Urobilinogen Dipstick 2.0 mg/dL (0.2 mg/dL) Urine Leukocyte Esterase Small (NEG) Urine RBC 0 /HPF (0-2) Urine WBC 5-10 /HPF (0-4) Urine Squamous Epithelial Cells Mod /LPF Urine Transitional Epithelial Cells Few /LPF Urine Amorphous Sediment Present /HPF Urine Bacteria 0 /HPF (0-FEW) Urine Hyaline Casts Moderate /HPF Urine Mucus Marked /LPF Sodium Level 142 mmol/L (136-145) Potassium Level 4.5 mmol/L (3.5-5.1) Chloride Level 105 mmol/L (98-107) Carbon Dioxide Level 30 mmol/L (21-32) Anion Gap 7 (6-14) Blood Urea Nitrogen 14 mg/dL (7-20) Creatinine 0.8 mg/dL (0.6-1.0) Estimated GFR (Cockcroft-Gault) 83.5 BUN/Creatinine Ratio 18 (6-20) Glucose Level 99 mg/dL (70-99) Calcium Level 10.0 mg/dL (8.5-10.1) Magnesium Level 1.8 mg/dL (1.8-2.4) Total Bilirubin 0.4 mg/dL (0.2-1.0) Aspartate Amino Transferase (AST) 49 U/L (15-37) H Alanine Aminotransferase (ALT) 50 U/L (14-59) Alkaline Phosphatase 73 U/L (46-116) Total Protein 6.7 g/dL (6.4-8.2) Albumin 3.1 g/dL (3.4-5.0) L Albumin/Globulin Ratio 0.9 (1.0-1.7) L Lipase 40 U/L (73-393) L Laboratory Tests 06/09/21 17:45 Laboratory Tests 06/09/21 17:45 Vital Signs: Vital Signs Date Time Temp Pulse Resp B/P (MAP) Pulse Ox O2 Delivery O2 Flow Rate FiO2 06/09/21 18:00 66 179/80 (113) 99 Room Air 06/09/21 17:20 99.1 18 99.1 EKG: EK-sinus rhythm with leftward axis, rate 67, no STEMI, read by Dr. Palomo [] Heart Score: C/O Chest Pain: No Radiology/Procedures: Radiology/Procedures: PROCEDURE: CT ABD PELV W/ IV CONTRST ONLY EXAMINATION: CT abdomen and pelvis with IV contrast. INDICATION:81 years, Female, lower abdominal pain. TECHNIQUE: Axial CT images of the abdomen and pelvis were obtained. Coronal and sagittal reformatted performed. COMPARISON: None. Exposure: One or more of the following individualized dose reduction techniques were utilized for this examination: 1. Automated exposure control 2. Adjustment of the mA and/or kV according to patient size 3. Use of iterative reconstruction technique. FINDINGS: LOWER CHEST: Bibasilar subsegmental atelectasis. ABDOMEN/PELVIS: Focal fat infiltration adjacent to the falciform ligament. Otherwise unremarkable liver. Gallbladder and biliary ducts are unremarkable. Spleen is normal. Mildly atrophic pancreatic parenchyma. No adrenal nodule. No hydro nephrosis in either kidney. There is a 5 mm nonobstructing calculus in the interpolar right kidney. Multifocal bilateral cortical scarring. Subcentimeter hypodensities in both renal cortices; too small to characterize. Complex cystic lesions with eccentric calcifications in the lower pole kidneys. Multiple indeterminate bilateral hypodense lesions for example right upper pole lesion measures 1.6 cm. Solid enhancing lesion exophytic from the lower pole left kidney, measures 1.9 cm. No bowel obstruction or wall thickening. Colonic diverticulosis without diverticulitis. Appendix is not visualized. Mild aortoiliac atherosclerotic calcifications without significant narrowing or dilatation. Mesenteric arteries and portal vein are patent. No lymphadenopathy in the abdomen by size criteria. Unremarkable urinary bladder. Hysterectomy. MUSCULOSKELETAL: No acute osseous process. Multilevel Schmorl's nodes. Diffuse osteopenia. Postsurgical changes along the anterior abdominal wall. IMPRESSION: 1. No acute intra-abdominal findings. 2. Solid enhancing 1.9 cm lesion exophytic from the lower pole left kidney, suspicious for renal cell cancer. Recommend further evaluation with MRI renal mass protocol. 3. Additional, bilateral renal cortical hypodense lesions, indeterminate. These can be further evaluated by the recommended MRI. 4. Nonobstructing 5 mm right nephrolithiasis. 5. Colonic diverticulosis without diverticulitis. Electronically signed by: Sherly Bailey MD (06/09/2021 7:30 PM) [facility] [] Course & Med Decision Making: Course & Med Decision Making Pertinent Labs and Imaging studies reviewed. (See chart for details) Patient's vital signs are stable. CT revealed:Solid enhancing 1.9 cm lesion exophytic from the lower pole left kidney, suspicious for renal cell cancer, and and bilateral renal cortical hypodense lesions, indeterminate. Recommend further evaluation with MRI renal mass protocol. CBC is unremarkable; CMP revealed AST of 49 otherwise unremarkable; UA was nonconcerning for urinary tract infection with moderate squamous cells and no bacteria, there were 5-10 white blood cells it is likely contaminated. I spoke with Dr. Awad about the patient we discussed the patient's labs and CT report. Recommend that patient is transferred back to [facility] needs to be instructed to follow-up on Saturday with patient's primary care doctor about the abnormal CT results. I discussed the patient's CT report with her and the family member at her bedside I also advised that the labs were unremarkable. I informed them that there is no acute problem identified in today's visit. I do recommend follow-up with her primary care doctor on Saturday to further discuss the abnormal CT results. Return to the ER if symptoms worsen or fever develops. Patient and her family member verbalized an understanding of home care, medications, follow- up, and return to ED instructions and was in agreement with the plan of care. We will send patient back to [facility] via EMS. [] [place] Disclaimer: July Disclaimer: This electronic medical record was generated, in whole or in part, using a voice recognition dictation system. Departure Departure Impression: Primary Impression: Abdominal pain Additional Impression: Abnormal finding on CT scan Disposition: HOME / SELF CARE / HOMELESS Condition: STABLE Referrals: HEENA PATEL MD (PCP) Patient Instructions: Abdominal Pain (Nonspecific) Additional Instructions: There was an abnormal finding on the CT of your abdomen today that revealed a 1.9 cm lesion exophytic from the lower pole of your left kidney. This needs further evaluation, MRI is recommended. Please follow-up with your primary care doctor on Saturday, June 12, 2021 for further evaluation of this abnormal finding. Return to the ER if symptoms worsen or fever develops. Problem Qualifiers Primary Impression: Abdominal pain Abdominal location: lower abdomen, unspecified Qualified Codes: R10.30 - Lower abdominal pain, unspecified AMEENA CASTRO APRN Jun 09, 2021 20:11
[2021-06-09 21:21] VITALS: BP 133/67
== END 2021-06-09 21:53 | disposition home or self-care (01) ==
LOC: ER 17:10
DX: R10.31 Right lower quadrant pain (principal); R93.5 Abnormal findings on diagnostic imaging of other abdominal regions, including retroperitoneum; K57.30 Diverticulosis of large intestine without perforation or abscess without bleeding; E11.9 Type 2 diabetes mellitus without complications; K21.9 Gastro-esophageal reflux disease without esophagitis; I10 Essential (primary) hypertension; F03.90 Unspecified dementia, unspecified severity, without behavioral disturbance, psychotic disturbance, mood disturbance, and anxiety; Z86.73 Personal history of transient ischemic attack (TIA), and cerebral infarction without residual deficits; Z90.710 Acquired absence of both cervix and uterus; Z88.2 Allergy status to sulfonamides; Z91.040 Latex allergy status; Z91.041 Radiographic dye allergy status
CPT/HCPCS: 36415; 74177; 80053; 81001; 83690; 83735; 85025; 87086; 93005; 96360; 96361; 99285; J7030; Q9967

== ENCOUNTER 2021-07-18 14:11 | Emergency (ER) | payer MEDICARE ==
[~2021-07-18] VITALS: Ht 160 cm; Wt 65.9 kg
--- NOTE | 2021-07-18 15:01 | PHYS DOC ---
Past Medical History Past Medical History: Anemia, CVA, Dementia, Depression, Diabetes-Type II, GERD, Hypertension Additional Past Medical Histor: hemiplegia, dyphagia, psychosis, cognitive communication defecit Past Surgical History: Hysterectomy, Other Additional Past Surgical Histo: eyes Smoking Status: Never Smoker Alcohol Use: None General Adult EDM: Chief Complaint: Not eating HPI: HPI: 81-year-old female shelter resident presents the emergency department as a baseline nonverbal patient was unable to provide a history. Per EMS, the patient's family wanted her evaluated because she has not been eating at her current shelter. The patient is unable to provide further history as she is nonverbal at baseline secondary to her baseline mental status. Review of Systems: Review of Systems: Further review of systems is unable to be acquired secondary to patient's clinical condition Heart Score: C/O Chest Pain: No Allergies: Allergies: Allergies Coded Allergies Type Severity Reaction Last Updated Verified Sulfa (Sulfonamide Antibiotics) Allergy Intermediate 12/25/20 Yes latex Allergy Intermediate 12/25/20 Yes red dye Allergy Intermediate 12/25/20 Yes yellow dye Allergy Intermediate 12/25/20 Yes Physical Exam: PE: Constitutional: Well developed, well nourished, no acute distress, non-toxic appearance. [] HENT: Normocephalic, atraumatic, bilateral external ears normal, oropharynx moist, no oral exudates, nose normal. [] Eyes: PERRLA, EOMI, conjunctiva normal, no discharge. [] Neck: Normal range of motion, no tenderness, supple, no stridor. [] Cardiovascular:Heart rate regular rhythm, no murmur [] Lungs & Thorax: Bilateral breath sounds clear to auscultation [] Abdomen: Bowel sounds normal, soft, no tenderness, no masses, no pulsatile masses. [] Skin: Warm, dry, no erythema, no rash. [] Back: No tenderness, no CVA tenderness. [] Extremities: No tenderness, no cyanosis, no clubbing, ROM intact, no edema. [] Neurologic: Alert and oriented X 3, normal motor function, normal sensory function, no focal deficits noted. [] Psychologic: Affect normal, judgement normal, mood normal. [] Current Patient Data: Labs: Laboratory Tests Test 07/18/21 15:20 07/18/21 16:30 White Blood Count 10.0 x10^3/uL (4.0-11.0) Red Blood Count 4.37 x10^6/uL (3.50-5.40) Hemoglobin 13.3 g/dL (12.0-15.5) Hematocrit 39.6 % (36.0-47.0) Mean Corpuscular Volume 91 fL (79-100) Mean Corpuscular Hemoglobin 31 pg (25-35) Mean Corpuscular Hemoglobin Concent 34 g/dL (31-37) Red Cell Distribution Width 15.3 % (11.5-14.5) Platelet Count 311 x10^3/uL (140-400) Neutrophils (%) (Auto) 81 % (31-73) Lymphocytes (%) (Auto) 11 % (24-48) Monocytes (%) (Auto) 7 % (0-9) Eosinophils (%) (Auto) 1 % (0-3) Basophils (%) (Auto) 1 % (0-3) Neutrophils # (Auto) 8.1 x10^3/uL (1.8-7.7) Lymphocytes # (Auto) 1.1 x10^3/uL (1.0-4.8) Monocytes # (Auto) 0.7 x10^3/uL (0.0-1.1) Eosinophils # (Auto) 0.1 x10^3/uL (0.0-0.7) Basophils # (Auto) 0.1 x10^3/uL (0.0-0.2) Sodium Level 142 mmol/L (136-145) Potassium Level 3.9 mmol/L (3.5-5.1) Chloride Level 105 mmol/L (98-107) Carbon Dioxide Level 32 mmol/L (21-32) Anion Gap 5 (6-14) Blood Urea Nitrogen 29 mg/dL (7-20) Creatinine 1.2 mg/dL (0.6-1.0) Estimated GFR (Cockcroft-Gault) 52.3 BUN/Creatinine Ratio 24 (6-20) Glucose Level 105 mg/dL (70-99) Calcium Level 10.2 mg/dL (8.5-10.1) Total Bilirubin 0.4 mg/dL (0.2-1.0) Aspartate Amino Transf (AST/SGOT) 46 U/L (15-37) Alanine Aminotransferase (ALT/SGPT) 43 U/L (14-59) Alkaline Phosphatase 66 U/L (46-116) Total Protein 6.5 g/dL (6.4-8.2) Albumin 2.9 g/dL (3.4-5.0) Albumin/Globulin Ratio 0.8 (1.0-1.7) Vital Signs: Vital Signs Date Time Temp Pulse Resp B/P (MAP) Pulse Ox O2 Delivery O2 Flow Rate FiO2 07/18/21 14:15 98.0 85 16 115/76 (89) 99 Room Air 98.0 Radiology/Procedures: Radiology/Procedures: EXAM: Head CT without contrast. HISTORY: Altered mental status. TECHNIQUE: Computed tomographic images of the head were obtained without contrast. *One or more of the following individualized dose reduction techniques were utilized for this examination: 1. Automated exposure control. 2. Adjustment of the mA and/or kV according to patient size. 3. Use of iterative reconstruction technique. COMPARISON: MRI dated 12/26/2020. FINDINGS: There is no hemorrhage. There is no mass effect or midline shift. Ther e is moderate ventricular enlargement. This appears to be within appropriate limits for the degree of cerebral volume loss. There is no convincing hydrocephalus. There is a chronic infarct within the right centrum semiovale. There is also a suspected chronic infarct at the junction of the left basal ganglia and thalamus. There are bilateral cerebral white matter changes, likely due to chronic small vessel disease. There is evidence of lens surgery. The visualized paranasal sinuses mastoid air cells are clear. There is no suspicious calvarial lesion. IMPRESSION: 1. No acute intracranial finding. MRI is more sensitive for acute infarction. 2. Chronic infarct within the right centrum semiovale, likely at the junction of the left basal ganglia and thalamus. 3. Bilateral cerebral white matter changes, likely due to chronic small vessel disease. 4. Moderate ventricular enlargement due to cerebral volume loss. Electronically signed by: Cristela Alberto MD (07/18/2021 3:20 PM) PROCEDURE: CHEST AP ONLY XR CHEST 1V History: Reason: altered mental state / Spl. Instructions: / History: Comparison: December 25, 2020 Findings: Mild right basilar linear atelectasis. No consolidation or pleural effusion. Normal heart size. No pneumothorax. Impression: 1. Mild right basilar linear atelectasis. Electronically signed by: Raul Jefferson DO (07/18/2021 3:18 PM) Course & Med Decision Making: Course & Med Decision Making Labs and radiology appear to be unremarkable. I discussed the patient's presentation with the patient's son who states that the patient has not been eating at the shelter and this is primarily the reason for the exam today. I discussed that this issue likely needs to be resolved with a telecom assistant and shelter staff and physician. At this time the patient appears to be at her baseline based on my conversation with the patient's son. We will send the patient back to the shelter via medical transport. Patient was agreeable to this plan. I discussed the results with the patient son who demonstrated understanding. All questions were answered Departure Departure Impression: Primary Impression: Poor appetite Disposition: 01 HOME / SELF CARE / HOMELESS Condition: STABLE Referrals: HEENA PATEL MD (PCP) Patient Instructions: Eating Disorders Additional Instructions: You were seen in the emergency department and your health condition was deemed not to require admission to the hospital. It is important to realize that we can only evaluate you during the time that you are in her department. Occasionally health conditions can worsen upon leaving the emergency department. If this were to happen, please return to and allow us the opportunity to reevaluate you. It is a pleasure to take care of your health needs. Return to the ER if your symptoms worsen, do not improve, or if you develop additional symptoms that are concerning to you INGE MONTALVO DO Jul 18, 2021 15:01
--- NOTE | 2021-07-18 15:20 | RAD ---
XR CHEST 1V History: Reason: altered mental state / Spl. Instructions: / History: Comparison: December 25, 2020 Findings: Mild right basilar linear atelectasis. No consolidation or pleural effusion. Normal heart size. No pn eumothorax. Impression: 1. Mild right basilar linear atelectasis. Electronically signed by: Raul Jefferson DO (07/18/2021 3:18 PM) [facility]
--- NOTE | 2021-07-18 15:22 | RAD ---
EXAM: Head CT without contrast. HISTORY: Altered mental status. TECHNIQUE: Computed tomographic images of the head were obtained without contrast. *One or more of the following individualized dose reduction techniques were utilized for this examina tion: 1. Automated exposure control. 2. Adjustment of the mA and/or kV according to patient size. 3. Use of iterative reconstruction technique. COMPARISON: MRI dated 12/26/2020. FINDINGS: There is no hemorrhage. There is no mass effect or midline shift. There is moderate ventric ular enlargement. This appears to be within appropriate limits for the degree of cerebral volume loss . There is no convincing hydrocephalus. There is a chronic infarct within the right centrum semiovale . There is also a suspected chronic infarct at the junction of the left basal ganglia and thalamus. T here are bilateral cerebral white matter changes, likely due to chronic small vessel disease. There i s evidence of lens surgery. The visualized paranasal sinuses mastoid air cells are clear. There is no suspicious calvarial lesion. IMPRESSION: 1. No acute intracranial finding. MRI is more sensitive for acute infarction. 2. Chronic infarct within the right centrum semiovale, likely at the junction of the left basal gangl ia and thalamus. 3. Bilateral cerebral white matter changes, likely due to chronic small vessel disease. 4. Moderate ventricular enlargement due to cerebral volume loss. Electronically signed by: Cristela Alberto MD (07/18/2021 3:20 PM) [id number]
[2021-07-18 15:32] LABS: BASO # 0.1 x10^3/uL (0.0-0.2); BASO % 1 % (0-3); EOS # 0.1 x10^3/uL (0.0-0.7); EOS % 1 % (0-3); HEMATOCRIT 39.6 % (36.0-47.0); HEMOGLOBIN 13.3 g/dL (12.0-15.5); LYMPH # 1.1 x10^3/uL (1.0-4.8); LYMPH % 11 % (24-48); MEAN CORPUSCULAR HEMOGLOBIN 31 pg (25-35); MEAN CORPUSCULAR HGB CONC 34 g/dL (31-37); MEAN CORPUSCULAR VOLUME 91 fL (79-100); MONO # 0.7 x10^3/uL (0.0-1.1); MONO % 7 % (0-9); NEUT # 8.1 x10^3/uL (1.8-7.7); NEUT % 81 % (31-73); PLATELET COUNT 311 x10^3/uL (140-400); RED BLOOD COUNT 4.37 x10^6/uL (3.50-5.40); RED CELL DISTRIBUTION WIDTH 15.3 % (11.5-14.5)
[2021-07-18 16:49] LABS: CALCIUM 10.2 mg/dL (8.5-10.1); CREATININE 1.2 mg/dL (0.6-1.0); GFR 52.3; POTASSIUM 3.9 mmol/L (3.5-5.1)
[2021-07-18 16:54] LABS: ALBUMIN 2.9 g/dL (3.4-5.0); ALBUMIN/GLOBULIN RATIO 0.8 (1.0-1.7); TOTAL BILIRUBIN 0.4 mg/dL (0.2-1.0); TOTAL PROTEIN 6.5 g/dL (6.4-8.2)
[2021-07-18] MEDS ORDERED: IV NORMAL SALINE 1000ML BAG 1,000 ML IV ONE (17:45)
[2021-07-18 19:12] VITALS: BP 127/64
== END 2021-07-18 19:30 | disposition home or self-care (01) ==
LOC: ER 14:11
DX: R63.0 Anorexia (principal); R51.9 Headache, unspecified; F03.90 Unspecified dementia, unspecified severity, without behavioral disturbance, psychotic disturbance, mood disturbance, and anxiety; E11.9 Type 2 diabetes mellitus without complications; K21.9 Gastro-esophageal reflux disease without esophagitis; I10 Essential (primary) hypertension; Z86.73 Personal history of transient ischemic attack (TIA), and cerebral infarction without residual deficits; Z90.710 Acquired absence of both cervix and uterus; Z88.2 Allergy status to sulfonamides; Z91.040 Latex allergy status; Z91.041 Radiographic dye allergy status
CPT/HCPCS: 36415; 70450; 71045; 80053; 85025; 99285-25

== ENCOUNTER 2021-07-22 17:20 | Inpatient (IN) | payer MEDICARE, MEDICAID ==
[~2021-07-22] VITALS: Ht 165.1 cm; Wt 68.7 kg
[2021-07-22 18:30] LABS: BASO # 0.1 x10^3/uL (0.0-0.2); BASO % 1 % (0-3); EOS % 0 % (0-3); HEMATOCRIT 36.4 % (36.0-47.0); HEMOGLOBIN 12.4 g/dL (12.0-15.5); LYMPH # 0.8 x10^3/uL (1.0-4.8); LYMPH % 10 % (24-48); MEAN CORPUSCULAR HEMOGLOBIN 31 pg (25-35); MEAN CORPUSCULAR HGB CONC 34 g/dL (31-37); MEAN CORPUSCULAR VOLUME 91 fL (79-100); MONO # 0.5 x10^3/uL (0.0-1.1); MONO % 6 % (0-9); NEUT % 84 % (31-73); PLATELET COUNT 342 x10^3/uL (140-400); RED CELL DISTRIBUTION WIDTH 15.5 % (11.5-14.5); WHITE BLOOD COUNT 8.3 x10^3/uL (4.0-11.0)
--- NOTE | 2021-07-22 18:36 | ED.ADGEN ---
Past Medical History Past Medical History: Anemia, CVA, Dementia, Depression, Diabetes-Type II, GERD, Hypertension Additional Past Medical Histor: hemiplegia, dyphagia, psychosis, cognitive communication defecit Past Surgical History: Hysterectomy, Other Additional Past Surgical Histo: eyes Smoking Status: Never Smoker Alcohol Use: None General Adult EDM: Chief Complaint: FLU SYMPTOM HPI: HPI: Patient is a 81 year old female coming in from nursing facility for altered me ntal status. Patient is also warm to the touch. Patient is nonverbal at this time (per chart review, 4 days ago she was GCS 15) and per nursing staff her normal baseline is alert and talking. Nursing facility states that over the past 4 days she has had worsening mental status and decreased p.o. intake. Nurse stated that when they had gone to check on her at 1400 she was difficult to arouse but was squeeze fingers when asked to. No known falls or injuries. Review of Systems: Review of Systems: Constitutional: Denies fever or chills. [] Eyes: Denies change in visual acuity. [] HENT: Denies nasal congestion or sore throat. [] Respiratory: Denies cough or shortness of breath. [] Cardiovascular: Denies chest pain or edema. [] GI: Denies abdominal pain, nausea, vomiting, bloody stools or diarrhea. [] : Denies dysuria. [] Musculoskeletal: Denies back pain or joint pain. [] Integument: Denies rash. [] Neurologic: Denies headache, focal weakness or sensory changes. [] Endocrine: Denies polyuria or polydipsia. [] Lymphatic: Denies swollen glands. [] Psychiatric: Denies depression or anxiety. [] Allergies: Allergies: Allergies Coded Allergies Type Severity Reaction Last Updated Verified Sulfa (Sulfonamide Antibiotics) Allergy Intermediate 12/25/20 Yes latex Allergy Intermediate 12/25/20 Yes red dye Allergy Intermediate 12/25/20 Yes yellow dye Allergy Intermediate 12/25/20 Yes Physical Exam: PE: Constitutional: Well developed, well nourished, no acute distress, non-toxic appearance. [] HENT: Normocephalic, atraumatic, bilateral external ears normal, oropharynx moist, no oral exudates, nose normal. [] Eyes: PERRLA, EOMI, conjunctiva normal, no discharge. [] Neck: Normal range of motion, no tenderness, supple, no stridor. [] Cardiovascular:Heart rate regular rhythm, no murmur [] Lungs & Thorax: Bilateral breath sounds clear to auscultation [] Abdomen: Bowel sounds normal, soft, no tenderness, no masses, no pulsatile masses. [] Skin: Warm, dry, no erythema, no rash. [] Back: No tenderness, no CVA tenderness. [] Extremities: No tenderness, no cyanosis, no clubbing, ROM intact, no edema. [] Neurologic: Alert and oriented X 3, normal motor function, normal sensory function, no focal deficits noted. [] Psychologic: Affect normal, judgement normal, mood normal. [] Current Patient Data: Labs: Laboratory Tests Test 07/22/21 18:06 White Blood Count 8.3 x10^3/uL (4.0-11.0) Red Blood Count 4.00 x10^6/uL (3.50-5.40) Hemoglobin 12.4 g/dL (12.0-15.5) Hematocrit 36.4 % (36.0-47.0) Mean Corpuscular Volume 91 fL (79-100) Mean Corpuscular Hemoglobin 31 pg (25-35) Mean Corpuscular Hemoglobin Concent 34 g/dL (31-37) Red Cell Distribution Width 15.5 % (11.5-14.5) H Platelet Count 342 x10^3/uL (140-400) Neutrophils (%) (Auto) 84 % (31-73) H Lymphocytes (%) (Auto) 10 % (24-48) L Monocytes (%) (Auto) 6 % (0-9) Eosinophils (%) (Auto) 0 % (0-3) Basophils (%) (Auto) 1 % (0-3) Neutrophils # (Auto) 7.0 x10^3/uL (1.8-7.7) Lymphocytes # (Auto) 0.8 x10^3/uL (1.0-4.8) L Monocytes # (Auto) 0.5 x10^3/uL (0.0-1.1) Eosinophils # (Auto) 0.0 x10^3/uL (0.0-0.7) Basophils # (Auto) 0.1 x10^3/uL (0.0-0.2) Lactic Acid Level 1.6 mmol/L (0.4-2.0) Laboratory Tests 07/22/21 18:06 Vital Signs: Vital Signs Date Time Temp Pulse Resp B/P (MAP) Pulse Ox O2 Delivery O2 Flow Rate FiO2 07/22/21 18:33 114 137/87 (104) 98 Room Air 07/22/21 17:20 99.3 20 99.3 EKG: EKG: [] Heart Score: C/O Chest Pain: N/A HEART Score for Chest Pain: HEART Score for Chest Pain Response (Comments) Value History Slighlty/Non-Suspicious 0 ECG Nonspecific Repolarizatio 1 Age > 65 2 Risk Factors 1 or 2 Risk Factors 1 Troponin < Normal Limit 0 Total 4 Risk Factors: Risk Factors: DM, Current or recent (<one month) smoker, HTN, HLP, family history of CAD, obesity. Risk Scores: Score 0 - 3: 2.5% MACE over next 6 weeks - Discharge Home Score 4 - 6: 20.3% MACE over next 6 weeks - Admit for Clinical Observation Score 7 - 10: 72.7% MACE over next 6 weeks - Early Invasive Strategies Radiology/Procedures: Radiology/Procedures: [facility] [address] [place] [address] IMAGING REPORT Signed PATIENT: CLAUDIO RAMESH AACCOUNT: [id number] : 1940 LOCATION: ER AGE: 81 SEX: F EXAM STATUS: REG ER ORD. PHYSICIAN: ISIDRO ALVARADO MD REASON: ams PROCEDURE: CT HEAD WO CONTRAST CT head without contrast dated 07/22/2021 8:16 PM Comparison: 07/18/2021 CLINICAL INDICATION: Altered mental status TECHNIQUE: Contiguous axial imaging of the head was performed from skull base to vertex. One or more of the following individualized dose reduction techniques were utilized for this examination: 1. Automated exposure control 2. Adjustment of the mA and/or kV according to patient size 3. Use of iterative reconstruction technique. FINDINGS: Ventricles and sulci are moderately prominent for age. No midline shift or mass effect. Mild to moderate patchy low density in the deep/subcortical periventricular white matter. No hemorrhage or extra axial collection. Posterior fossa and brainstem unremarkable. There is a remote infarct of the right cheng radiata, unchanged. Visualized paranasal sinuses and mastoid air cells are clear. No apparent calvarial abnormality. IMPRESSION: 1. No evidence of acute cranial hemorrhage or mass. 2. Moderate chronic small vessel ischemic changes and atrophy, similar to prior study. Electronically signed by: Daron Klein MD (07/22/2021 8:18 PM) [facility] DICTATED and SIGNED BY: DARON KLEIN MD DATE: 07/22/[id number] 0 [][facility] [address] [place] [address] IMAGING REPORT Signed PATIENT: CLAUDIO RAMESH AACCOUNT: [id number] : 1940 LOCATION: ER AGE: 81 SEX: F EXAM STATUS: REG ER ORD. PHYSICIAN: ISIDRO ALVARADO MD REASON: fever PROCEDURE: CHEST AP ONLY EXAM: CHEST 1 VIEW History: Fever COMPARISON: 07/18/2021 TECHNIQUE: Single portable radiograph of the chest FINDINGS: The cardiac silhouette is unremarkable. The lungs are clear bilaterally. The costophrenic sulci are clear and well demarcated. IMPRESSION: No radiographic evidence of an acute cardiopulmonary process. Electronically signed by: Adalid Gaston MD (07/22/2021 8:37 PM) [id number] DICTATED and SIGNED BY: ADALID GASTON MD DATE: 07/22/[id number] 0 Course & Med Decision Making: Course & Med Decision Making Pertinent Labs and Imaging studies reviewed. (See chart for details) [] Dragon Disclaimer: Dragon Disclaimer: This electronic medical record was generated, in whole or in part, using a voice recognition dictation system. Departure Departure Impression: Primary Impression: AMS (altered mental status) Additional Impression: UTI (urinary tract infection) Disposition: ADMITTED INPATIENT Condition: STABLE Referrals: HEENA PATEL MD (PCP) Problem Qualifiers ISIDRO ALVARADO MD Jul 22, 2021 18:36
[2021-07-22] MEDS ORDERED: IV RINGERS,LACTATED 1000ML 1,000 ML IV ONE (18:45)
[2021-07-22] MEDS ORDERED: IV RINGERS,LACTATED 500ML 500 ML IV ONE (18:45)
[2021-07-22] MEDS: IV NORMAL SALINE 1000ML BAG 1,000 ML IV SCH (19:45)
[2021-07-22] MEDS ORDERED: ONDANSETRON PF 4 MG/2 ML VIAL. IVP PRN (19:45)
[2021-07-22] MEDS ORDERED: ACETAMINOPHEN 325 MG TABLET. PO PRN (19:45)
--- NOTE | 2021-07-22 20:20 | RAD ---
CT head without contrast dated 07/22/2021 8:16 PM Comparison: 07/18/2021 CLINICAL INDICATION: Altered mental status TECHNIQUE: Contiguous axial imaging of the head was performed from skull base to vertex. One or more of the following individualized dose reduction techniques were utilized for this examinat ion: 1. Automated exposure control 2. Adjustment of the mA and/or kV according to patient size 3. Use of iterative reconstruction technique. FINDINGS: Ventricles and sulci are moderately prominent for age. No midline shift or mass effect. Mild to moder ate patchy low density in the deep/subcortical periventricular white matter. No hemorrhage or extra a xial collection. Posterior fossa and brainstem unremarkable. There is a remote infarct of the right c randa radiata, unchanged. Visualized paranasal sinuses and mastoid air cells are clear. No apparent calvarial abnormality. IMPRESSION: 1. No evidence of acute cranial hemorrhage or mass. 2. Moderate chronic small vessel ischemic changes and atrophy, similar to prior study. Electronically signed by: Daron Klein MD (07/22/2021 8:18 PM) FELIX
--- NOTE | 2021-07-22 20:40 | RAD ---
EXAM: CHEST 1 VIEW History: Fever COMPARISON: 07/18/2021 TECHNIQUE: Single portable radiograph of the chest FINDINGS: The cardiac silhouette is unremarkable. The lungs are clear bilaterally. The costophrenic sulci are clear and well demarcated. IMPRESSION: No radiographic evidence of an acute cardiopulmonary process. Electronically signed by: Adalid Gaston MD (07/22/2021 8:37 PM) [id number]
[2021-07-22] MEDS ORDERED: HEPARIN for IV BOLUS 10,000 UNIT/10 ML VIAL. IV ONE (20:45)
[2021-07-22] MEDS ORDERED: HEPARIN for IV BOLUS 10,000 UNIT/10 ML VIAL. IV PRN (20:45)
[2021-07-22] MEDS ORDERED: HEPARIN 25,000UTS/250ML PREMIX 250 ML IV PRN (20:45)
--- NOTE | 2021-07-22 21:26 | EKG ---
[facility] [address] [place] [address] Test Date: 2021-07-22 Test Time: 17:40:37 Pat Name: CLAUDIO RAMESH Department: Room: Gender: F Travel Registered Nurse Nicu: : 1940 Requested By: ISIDRO ALVARADO Order Number: [id number] Reading MD: Measurements Intervals [place] Rate: 116 P: -17 [place]: 154 QRS: -15 QRSD: 78 T: 66 QT: 344 QTc: 485 Interpretive Statements No previous ECG available for comparison
[2021-07-22 21:39] LABS: CALCIUM 10.3 mg/dL (8.5-10.1); CREATININE 1.1 mg/dL (0.6-1.0); GFR 57.8; POTASSIUM 3.8 mmol/L (3.5-5.1)
[2021-07-22 21:44] LABS: ALBUMIN 2.7 g/dL (3.4-5.0); ALBUMIN/GLOBULIN RATIO 0.8 (1.0-1.7); MAGNESIUM 1.6 mg/dL (1.8-2.4); PHOSPHORUS 3.8 mg/dL (2.6-4.7); TOTAL BILIRUBIN 0.5 mg/dL (0.2-1.0); TOTAL PROTEIN 6.1 g/dL (6.4-8.2)
[2021-07-22 22:59] LABS: BILIRUBIN,URINE SMALL (NEG); CLARITY,URINE CLOUDY; COLOR,URINE AMBER; NITRITE,URINE NEGATIVE (NEG); PH,URINE 5.5 (<5.0-8.0); PROTEIN,URINE 30 mg/dL (NEG-TRACE)
[2021-07-22 23:13] LABS: BACTERIA,URINE MODERATE /HPF (0-FEW); WBC,URINE TNTC /HPF (0-4)
[2021-07-22 23:37] LABS: PROTHROMBIN TIME PATIENT 15.2 SEC (11.7-14.0)
[2021-07-23] VITALS (8 sets, daily range): BP systolic 140–166; BP diastolic 69–85
[2021-07-23] MEDS ORDERED: cefTRIAXone IV Push 1 GM VIAL. IVP SCH ×3 (01:30→10:00)
[2021-07-23] MEDS ORDERED: LISI2.5T12 PO (01:48)
[2021-07-23] MEDS ORDERED: MIRT-34 PO (01:50)
[2021-07-23] MEDS ORDERED: MEMA10TA PO (01:51)
[2021-07-23] MEDS ORDERED: OLAN10TA69 PO (01:52)
[2021-07-23] MEDS ORDERED: FLUO60TA PO (01:55)
[2021-07-23 01:56] LABS: BASO # 0.1 x10^3/uL (0.0-0.2); BASO % 1 % (0-3); EOS % 0 % (0-3); HEMOGLOBIN 11.6 g/dL (12.0-15.5); LYMPH % 10 % (24-48); MEAN CORPUSCULAR HEMOGLOBIN 30 pg (25-35); MEAN CORPUSCULAR HGB CONC 33 g/dL (31-37); MEAN CORPUSCULAR VOLUME 91 fL (79-100); MONO # 0.7 x10^3/uL (0.0-1.1); MONO % 7 % (0-9); NEUT # 8.7 x10^3/uL (1.8-7.7); NEUT % 83 % (31-73); PLATELET COUNT 300 x10^3/uL (140-400); RED BLOOD COUNT 3.84 x10^6/uL (3.50-5.40); RED CELL DISTRIBUTION WIDTH 15.5 % (11.5-14.5); WHITE BLOOD COUNT 10.6 x10^3/uL (4.0-11.0)
[2021-07-23 02:24] LABS: ALBUMIN 2.7 g/dL (3.4-5.0); ALBUMIN/GLOBULIN RATIO 0.8 (1.0-1.7); CALCIUM 9.9 mg/dL (8.5-10.1); GFR 64.6; POTASSIUM 3.5 mmol/L (3.5-5.1); TOTAL BILIRUBIN 0.4 mg/dL (0.2-1.0); TOTAL PROTEIN 6.2 g/dL (6.4-8.2)
--- NOTE | 2021-07-23 02:50 | NUR ---
Admit from ER to [facility] room 672. Alert on arrival. Speaks in whispers when spoken to. Pleasant. Admit for AMS, Fever and UTI. History of CVA Dec 2020. From [facility]. Orientated to room and call light. Reviewed POC to include turning q2hrs and not to get out of bed without assist. Verbalized understanding. Resting in bed. Call light at hand. Bed alarm on.
[2021-07-23] MEDS: IV NORMAL SALINE 1000ML BAG 1,000 ML IV SCH ×2 (06:45→22:25)
[2021-07-23] MEDS: CLOPIDOGREL BISULFATE 75 MG TABLET PO SCH (11:07)
[2021-07-23] MEDS: FERROUS SULFATE 325 MG TABLET. PO SCH (11:07)
[2021-07-23] MEDS: MEMANTINE 10 MG TABLET. PO SCH ×2 (11:09→20:26)
[2021-07-23] MEDS: LISINOPRIL 5 MG TABLET. PO SCH (11:09)
--- NOTE | 2021-07-23 13:26 | NUR ---
Speech Language Pathology Bedside Swallow Eval Bedside Swallow Evaluation completed. Pt displaying reduced a-p transfer w/all consistencies & markedly delayed swallow initiation w/overt sx of aspiration w/honey thick liquids. Suspect h/o CVA and mentation 2* acute illness/UTI may both be contributory to dysphagia/sx of aspiration. REC Pt be strictly NPO (meds and nutrition) w/aggressive oral care. ST to continue to reassess.
--- NOTE | 2021-07-23 14:30 | PDOC ---
GENERAL General: History and physical [id number] VITAL SIGNS Vital Signs/I&O: Vital Signs Date Time Temp Pulse Resp B/P (MAP) Pulse Ox O2 Delivery O2 Flow Rate FiO2 07/23/21 11:16 99.7 97 18 152/69 (96) 100 Room Air 99.7 I & O 07/22/21 07/22/21 07/23/21 15:00 23:00 07:00 Intake Total 1000 ml Balance 1000 ml ALLERGIES Allergies: Allergies Coded Allergies Type Severity Reaction Last Updated Verified Sulfa (Sulfonamide Antibiotics) Allergy Intermediate 12/25/20 Yes latex Allergy Intermediate 12/25/20 Yes red dye Allergy Intermediate 12/25/20 Yes yellow dye Allergy Intermediate 12/25/20 Yes MEDS Medications: Current Medications Medications (Trade) Dose Ordered Sig/Allyson Route PRN Reason Start Time Stop Time Status Last Admin Dose Admin Ringer's Solution 1,000 ml @ 100 mls/hr 1X ONCE IV 07/22/21 18:45 07/23/21 04:44 DC 07/22/21 21:02 Ringer's Solution 500 ml @ 500 mls/hr 1X ONCE IV 07/22/21 18:45 07/22/21 19:44 DC 07/22/21 19:46 Sodium Chloride 1,000 ml @ 75 mls/hr [id number] IV 07/22/21 19:45 07/28/21 11:00 07/23/21 06:45 Ceftriaxone Sodium (Rocephin) 1 gm QHS IVP 07/23/21 01:30 07/23/21 09:20 DC 07/23/21 01:20 Clopidogrel Bisulfate (Plavix) 75 mg DAILY PO 07/23/21 10:00 07/23/21 11:07 Ferrous Sulfate (Feosol) 325 mg DAILY PO 07/23/21 10:00 07/23/21 11:07 Memantine (Namenda) 10 mg BID PO 07/23/21 10:00 07/23/21 11:09 Lisinopril (Prinivil) 2.5 mg DAILY PO 07/23/21 10:00 07/23/21 11:09 LAB Lab: Laboratory Tests Test 07/22/21 18:06 07/22/21 20:30 07/22/21 22:52 07/22/21 23:20 White Blood Count 8.3 x10^3/uL (4.0-11.0) Red Blood Count 4.00 x10^6/uL (3.50-5.40) Hemoglobin 12.4 g/dL (12.0-15.5) Hematocrit 36.4 % (36.0-47.0) Mean Corpuscular Volume 91 fL (79-100) Mean Corpuscular Hemoglobin 31 pg (25-35) Mean Corpuscular Hemoglobin Concent 34 g/dL (31-37) Red Cell Distribution Width 15.5 % (11.5-14.5) H Platelet Count 342 x10^3/uL (140-400) Neutrophils (%) (Auto) 84 % (31-73) H Lymphocytes (%) (Auto) 10 % (24-48) L Monocytes (%) (Auto) 6 % (0-9) Eosinophils (%) (Auto) 0 % (0-3) Basophils (%) (Auto) 1 % (0-3) Neutrophils # (Auto) 7.0 x10^3/uL (1.8-7.7) Lymphocytes # (Auto) 0.8 x10^3/uL (1.0-4.8) L Monocytes # (Auto) 0.5 x10^3/uL (0.0-1.1) Eosinophils # (Auto) 0.0 x10^3/uL (0.0-0.7) Basophils # (Auto) 0.1 x10^3/uL (0.0-0.2) Lactic Acid Level 1.6 mmol/L (0.4-2.0) SARS-CoV-2 RNA (ASHLIE) Negative (Negative) Sodium Level 149 mmol/L (136-145) H Potassium Level 3.8 mmol/L (3.5-5.1) Chloride Level 110 mmol/L (98-107) H Carbon Dioxide Level 27 mmol/L (21-32) Anion Gap 12 (6-14) Blood Urea Nitrogen 36 mg/dL (7-20) H Creatinine 1.1 mg/dL (0.6-1.0) H Estimated GFR (Cockcroft-Gault) 57.8 BUN/Creatinine Ratio 33 (6-20) H Glucose Level 101 mg/dL (70-99) H Calcium Level 10.3 mg/dL (8.5-10.1) H Phosphorus Level 3.8 mg/dL (2.6-4.7) Magnesium Level 1.6 mg/dL (1.8-2.4) L Total Bilirubin 0.5 mg/dL (0.2-1.0) Aspartate Amino Transferase (AST) 65 U/L (15-37) H Alanine Aminotransferase (ALT) 62 U/L (14-59) H Alkaline Phosphatase 61 U/L (46-116) Troponin I Quantitative 0.017 ng/mL (0.000-0.055) TN-Usx-Y-Type Natriuretic Peptide 1245 pg/mL (0-449) H Total Protein 6.1 g/dL (6.4-8.2) L Albumin 2.7 g/dL (3.4-5.0) L Albumin/Globulin Ratio 0.8 (1.0-1.7) L Urine Collection Type U cath Urine Color Ketty Urine Clarity Cloudy Urine pH 5.5 (<5.0-8.0) Urine Specific Elizabeth 1.020 (1.000-1.030) Urine Protein 30 mg/dL (NEG-TRACE) Urine Glucose (UA) Negative mg/dL (NEG) Urine Ketones (Stick) 15 mg/dL (NEG) Urine Blood Moderate (NEG) Urine Nitrite Negative (NEG) Urine Bilirubin Small (NEG) Urine Urobilinogen Dipstick 1.0 mg/dL (0.2 mg/dL) Urine Leukocyte Esterase Large (NEG) Urine RBC 3-5 /HPF (0-2) Urine WBC Tntc /HPF (0-4) Urine Squamous Epithelial Cells Many /LPF Urine Bacteria Moderate /HPF (0-FEW) Urine Mucus Mod /LPF Prothrombin Time 15.2 SEC (11.7-14.0) H Prothrombin Time INR 1.2 (0.8-1.1) H Test 07/23/21 01:45 White Blood Count 10.6 x10^3/uL (4.0-11.0) Red Blood Count 3.84 x10^6/uL (3.50-5.40) Hemoglobin 11.6 g/dL (12.0-15.5) L Hematocrit 35.0 % (36.0-47.0) L Mean Corpuscular Volume 91 fL (79-100) Mean Corpuscular Hemoglobin 30 pg (25-35) Mean Corpuscular Hemoglobin Concent 33 g/dL (31-37) Red Cell Distribution Width 15.5 % (11.5-14.5) H Platelet Count 300 x10^3/uL (140-400) Neutrophils (%) (Auto) 83 % (31-73) H Lymphocytes (%) (Auto) 10 % (24-48) L Monocytes (%) (Auto) 7 % (0-9) Eosinophils (%) (Auto) 0 % (0-3) Basophils (%) (Auto) 1 % (0-3) Neutrophils # (Auto) 8.7 x10^3/uL (1.8-7.7) H Lymphocytes # (Auto) 1.0 x10^3/uL (1.0-4.8) Monocytes # (Auto) 0.7 x10^3/uL (0.0-1.1) Eosinophils # (Auto) 0.0 x10^3/uL (0.0-0.7) Basophils # (Auto) 0.1 x10^3/uL (0.0-0.2) Sodium Level 149 mmol/L (136-145) H Potassium Level 3.5 mmol/L (3.5-5.1) Chloride Level 110 mmol/L (98-107) H Carbon Dioxide Level 28 mmol/L (21-32) Anion Gap 11 (6-14) Blood Urea Nitrogen 36 mg/dL (7-20) H Creatinine 1.0 mg/dL (0.6-1.0) Estimated GFR (Cockcroft-Gault) 64.6 BUN/Creatinine Ratio 36 (6-20) H Glucose Level 110 mg/dL (70-99) H Calcium Level 9.9 mg/dL (8.5-10.1) Total Bilirubin 0.4 mg/dL (0.2-1.0) Aspartate Amino Transferase (AST) 65 U/L (15-37) H Alanine Aminotransferase (ALT) 65 U/L (14-59) H Alkaline Phosphatase 60 U/L (46-116) Troponin I Quantitative < 0.017 ng/mL (0.000-0.055) Total Protein 6.2 g/dL (6.4-8.2) L Albumin 2.7 g/dL (3.4-5.0) L Albumin/Globulin Ratio 0.8 (1.0-1.7) L Laboratory Tests 07/22/21 18:06 07/23/21 01:45 Laboratory Tests 07/22/21 20:30 07/23/21 01:45 Justifications for Admission Other Justification HTN urgency PAUL CHAUDHRY MD Jul 23, 2021 14:30
--- NOTE | 2021-07-23 15:26 | HP ---
ADMIT DATE: 07/22/2021 HISTORY OF PRESENT ILLNESS: This patient is an 81-year-old woman who is well known to me from many years of outpatient primary care work together until about a year ago after her , her dementia worsened and she needed to be move to [facility]. I have not seen her since that time. She has markedly declined and has lost at least 50 pounds or more and is completely disengaged and did not recognize me on my evaluation this morning. The patient was sent in with altered mental status, was found to have a urinary tract infection. Final culture results are pending and blood cultures have been sent. It looks like the patient has also been refusing to eat and drink there and is also quite dehydrated. The patient appeared comfortable on my assessment this morning. There is no other report from the [facility] of new symptoms including no cough, congestion, pain anywhere, falls, or any other new specific constitutional symptoms. All other systems reviewed and negative. PAST MEDICAL HISTORY: 1. 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 She was diagnosed with vascular dementia some years ago. 2. Hyperlipidemia. 3. History of significant obesity in the past that she has lost a lot of weight since I last saw her. MEDICATIONS: Please see the medication reconciliation form. SOCIAL HISTORY: The patient is . She would have been a full code when her was alive. I have not spoken with her family since she has moved to the group home. Her code status may have changed. At this point, we will consider her full code per the records. She does not take any tobacco, alcohol or illicit drugs. FAMILY HISTORY: Reviewed in full and noncontributory to the present illness. PHYSICAL EXAMINATION: VITAL SIGNS: Vitals reviewed since admission and are notable for T-max of 99.7, heart rate is in the 90s to low 100s. She is breathing comfortably and saturating 98%-99% on room air, blood pressure is between 140 and 160 over 80. She is breathing comfortably on my assessment this morning. GENERAL: In general, she is thin, frail, does not interact much, though does make some eye contact. She did not recognize me from many years of outpatient primary care work together. HEENT: Unremarkable for acute abnormality. NECK: Soft and supple. No adenopathy or thyromegaly noted. CHEST: Clear to auscultation. HEART: S1, S2 normal. Regular rate and rhythm. No murmurs or gallops are noted. ABDOMEN: Soft, nontender, nondistended. No masses or organomegaly noted. EXTREMITIES: Unremarkable for acute abnormality. LABORATORY DATA AND OTHER STUDIES: Admission white count is 8.3, hemoglobin is 12.4, platelet count is 342. Chemistry panel is notable for a serum sodium of 149, creatinine is 1.0, BUN 36. Liver function tests elevated at 65 and 62 of AST and ALT respectively. Serum albumin is down at 2.7. Urinalysis demonstrates marked pyuria. Culture is pending, COVID PCR is negative. Head CT is notable for chronic small vessel ischemic changes and atrophy, similar to prior. No acute changes noted. Chest x-ray is normal. ASSESSMENT AND PLAN: Impression: An 81-year-old woman with vascular dementia and malignant hypertension, has lived at [facility] for the last year, looks to have had a marked decline with at least 50+ pound weight loss since her move, admitted with dehydration and urinary tract infection. We have started Ceftriaxone while awaiting urine culture results. Speech and Swallow has called and told me that she failed her swallow study and will not be able to even take her medications by mouth at this point. We will initiate Clinimix and hold her n.p.o. for further assessment. The patient is a full code per the record. Inpatient status is most appropriate as we anticipate a length of stay of at least 2-3 midnights while we work this through. She may use SCDs for DVT prophylaxis. HERACLIO/TONIA : HERACLIO/za TID: [id number] [facility]
[2021-07-23] MEDS: CARVEDILOL 12.5 MG TABLET. PO SCH (16:49)
[2021-07-23] MEDS: AA 4.25 %/CALCIUM/LYTES/D5W 1,000 ML IV SCH (16:58)
[2021-07-23] MEDS: cloNIDine HCL 0.2 MG TABLET PO SCH (20:25)
[2021-07-23] MEDS: ATORVASTATIN CALCIUM 40 MG TABLET. PO SCH (20:25)
[2021-07-24] VITALS (7 sets, daily range): BP systolic 145–181; BP diastolic 76–95
[2021-07-24] MEDS: AA 4.25 %/CALCIUM/LYTES/D5W 1,000 ML IV SCH ×2 (04:02→16:41)
[2021-07-24] MEDS: hydrALAZINE 20 MG/ML VIAL. IVP PRN ×3 (04:15→23:13)
[2021-07-24] MEDS: CARVEDILOL 12.5 MG TABLET. PO SCH ×2 (08:00→16:59)
[2021-07-24 08:46] LABS: BASO % 0 % (0-3); EOS % 0 % (0-3); HEMATOCRIT 33.9 % (36.0-47.0); HEMOGLOBIN 11.4 g/dL (12.0-15.5); LYMPH # 0.7 x10^3/uL (1.0-4.8); LYMPH % 7 % (24-48); MEAN CORPUSCULAR HEMOGLOBIN 31 pg (25-35); MEAN CORPUSCULAR HGB CONC 34 g/dL (31-37); MEAN CORPUSCULAR VOLUME 91 fL (79-100); MONO # 0.6 x10^3/uL (0.0-1.1); MONO % 7 % (0-9); NEUT # 8.2 x10^3/uL (1.8-7.7); NEUT % 86 % (31-73); PLATELET COUNT 273 x10^3/uL (140-400); RED BLOOD COUNT 3.74 x10^6/uL (3.50-5.40); RED CELL DISTRIBUTION WIDTH 15.4 % (11.5-14.5); WHITE BLOOD COUNT 9.6 x10^3/uL (4.0-11.0)
[2021-07-24] MEDS: cloNIDine HCL 0.2 MG TABLET PO SCH ×2 (09:00→21:00)
[2021-07-24] MEDS: LISINOPRIL 5 MG TABLET. PO SCH (09:00)
[2021-07-24] MEDS: FLUoxetine HCL 20 MG CAPSULE PO SCH (09:00)
[2021-07-24] MEDS: MEMANTINE 10 MG TABLET. PO SCH ×2 (09:00→21:00)
[2021-07-24] MEDS: CLOPIDOGREL BISULFATE 75 MG TABLET PO SCH (09:00)
[2021-07-24] MEDS: FERROUS SULFATE 325 MG TABLET. PO SCH (09:00)
[2021-07-24 09:03] LABS: ALBUMIN 2.5 g/dL (3.4-5.0); ALBUMIN/GLOBULIN RATIO 0.8 (1.0-1.7); CALCIUM 9.7 mg/dL (8.5-10.1); CREATININE 0.9 mg/dL (0.6-1.0); GFR 72.9; POTASSIUM 3.1 mmol/L (3.5-5.1); TOTAL BILIRUBIN 0.4 mg/dL (0.2-1.0); TOTAL PROTEIN 5.8 g/dL (6.4-8.2)
[2021-07-24] MEDS: cefTRIAXone IV Push 1 GM VIAL. IVP SCH (09:27)
--- NOTE | 2021-07-24 10:05 | NUR ---
Wound Care Pt seen for wound care consultation re: L buttock wound, "old scar". Pt seen and assessed, area over coccyx/buttocks is healed, with scarring, no active or open wound noted. Pt cleaned of stool, new Purewick applied, pt repositioned onto R side with wedge and pillows. Wound care will sign off at this time.
[2021-07-24 10:50] LABS: % BANDS 1 % (0-9); % BASOS 1 % (0-3); % LYMPHS 10 % (24-48); % MONOS 2 % (0-10); % SEGS 86 % (35-66); PLT ESTIMATE ADEQUATE (ADEQUATE)
[2021-07-24] MEDS: IV NORMAL SALINE 1000ML BAG 1,000 ML IV SCH (11:45)
--- NOTE | 2021-07-24 13:56 | NUR ---
SS following for discharge planning. SS reviewed pt chart and discussed with pt RN. Pt is LTC resident from [place], ; fax [phone]. COVID19 negative. Pt is currently on room air. Pt on IV Rocephin. NPO. Pt on Clinimix. No PT/OT needs. SS will continue to follow for discharge planning.
--- NOTE | 2021-07-24 18:55 | PDOC ---
[employer] PROGRESS NOTE Date of Service DOS: DATE: 07/24/21 TIME: 18:47 Chief Complaint Chief Complaint AMS Acute cystitis Dehydration Plan: Continue treatment with Rocephin 1 g daily Currently n.p.o. due to failed swallow study Continue treatment with Clinimix FEN - NPO PPX - Heparin FULL CODE Dispo - inpatient for above admitted withdehydration and urinary tract infection. We have started Ceftriaxone while awaiting urine culture results. Speech and Swallow has called and told me that she failed her swallow study and will not be able to even take her medications by mouth at this point. We will initiate Clinimix and hold her n.p.o. for further assessment. The patient is a full code per the record. Inpatient status is most appropriate as we anticipate a length of stay of at least 2-3 midnights while we work this through. She may use SCDs for DVT. History of Present Illness History of Present Illness 07/24/2021: Patient seen and evaluated. No acute vents overnight, low-grade fever this morning (T-max 100.1 F). She is a long-term resident at [facility]. Currently n.p.o. due to dysphagia; ST following. Continue treatment of acute cystitis with Rocephin 1 g daily. Continue to follow urine culture. Vitals/I&O Vitals/I&O: Vital Signs Date Time Temp Pulse Resp B/P (MAP) Pulse Ox O2 Delivery O2 Flow Rate FiO2 07/24/21 18:01 94 164/83 07/24/21 14:38 100.1 20 100 Room Air 100.1 I & O 07/23/21 07/23/21 07/24/21 15:00 23:00 07:00 Intake Total 0 ml 0 ml Output Total 150 ml Balance 0 ml -150 ml Physical Exam General: Alert Heart: Regular rate Lungs: Clear Abdomen: Soft, No tenderness Extremities: No clubbing, No cyanosis Skin: No rashes, No breakdown Labs Labs: Laboratory Tests Test 07/24/21 07:35 White Blood Count 9.6 x10^3/uL (4.0-11.0) Red Blood Count 3.74 x10^6/uL (3.50-5.40) Hemoglobin 11.4 g/dL (12.0-15.5) Hematocrit 33.9 % (36.0-47.0) Mean Corpuscular Volume 91 fL (79-100) Mean Corpuscular Hemoglobin 31 pg (25-35) Mean Corpuscular Hemoglobin Concent 34 g/dL (31-37) Red Cell Distribution Width 15.4 % (11.5-14.5) Platelet Count 273 x10^3/uL (140-400) Neutrophils (%) (Auto) 86 % (31-73) Lymphocytes (%) (Auto) 7 % (24-48) Monocytes (%) (Auto) 7 % (0-9) Eosinophils (%) (Auto) 0 % (0-3) Basophils (%) (Auto) 0 % (0-3) Neutrophils # (Auto) 8.2 x10^3/uL (1.8-7.7) Lymphocytes # (Auto) 0.7 x10^3/uL (1.0-4.8) Monocytes # (Auto) 0.6 x10^3/uL (0.0-1.1) Eosinophils # (Auto) 0.0 x10^3/uL (0.0-0.7) Basophils # (Auto) 0.0 x10^3/uL (0.0-0.2) Segmented Neutrophils % 86 % (35-66) Band Neutrophils % 1 % (0-9) Lymphocytes % 10 % (24-48) Monocytes % 2 % (0-10) Basophils % 1 % (0-3) Platelet Estimate Adequate (ADEQUATE) Sodium Level 146 mmol/L (136-145) Potassium Level 3.1 mmol/L (3.5-5.1) Chloride Level 109 mmol/L (98-107) Carbon Dioxide Level 28 mmol/L (21-32) Anion Gap 9 (6-14) Blood Urea Nitrogen 32 mg/dL (7-20) Creatinine 0.9 mg/dL (0.6-1.0) Estimated GFR (Cockcroft-Gault) 72.9 BUN/Creatinine Ratio 36 (6-20) Glucose Level 153 mg/dL (70-99) Calcium Level 9.7 mg/dL (8.5-10.1) Total Bilirubin 0.4 mg/dL (0.2-1.0) Aspartate Amino Transf (AST/SGOT) 44 U/L (15-37) Alanine Aminotransferase (ALT/SGPT) 58 U/L (14-59) Alkaline Phosphatase 57 U/L (46-116) Total Protein 5.8 g/dL (6.4-8.2) Albumin 2.5 g/dL (3.4-5.0) Albumin/Globulin Ratio 0.8 (1.0-1.7) Assessment and Plan Assessmemt and Plan Problems Medical Problems: (1) AMS (altered mental status) Status: Acute (2) UTI (urinary tract infection) Status: Acute Comment Review of Relevant I have reviewed the following items shakeel (where applicable) has been applied. Medications: Current Medications Medications (Trade) Dose Ordered Sig/Allyson Route PRN Reason Start Time Stop Time Status Last Admin Dose Admin Ceftriaxone Sodium (Rocephin) 1 gm Q24H IVP 07/24/21 09:00 07/24/21 09:27 Justifications for Admission Other Justification HTN urgency PARMJIT CAMERON MD Jul 24, 2021 18:55
--- NOTE | 2021-07-24 20:00 | NUR ---
Pt i n bed alert to self, assessment completed pt reoriented to surroundings call light in reach bed alarm set will resume care and continue to monitor pt.
[2021-07-24] MEDS: ATORVASTATIN CALCIUM 40 MG TABLET. PO SCH (21:00)
[2021-07-24] MEDS: HEPARIN for SUB-Q USE 5,000 UNIT/ML VIAL. SQ SCH (21:59)
[2021-07-25 02:50] VITALS: BP 155/82
[2021-07-25] MEDS: AA 4.25 %/CALCIUM/LYTES/D5W 1,000 ML IV SCH ×2 (05:39→17:48)
[2021-07-25 07:23] VITALS: BP 174/99
[2021-07-25] MEDS: CARVEDILOL 12.5 MG TABLET. PO SCH ×2 (08:00→17:00)
[2021-07-25] MEDS: LISINOPRIL 5 MG TABLET. PO SCH (08:07)
[2021-07-25] MEDS: MEMANTINE 10 MG TABLET. PO SCH ×2 (08:07→21:00)
[2021-07-25] MEDS: CLOPIDOGREL BISULFATE 75 MG TABLET PO SCH (08:07)
[2021-07-25] MEDS: FERROUS SULFATE 325 MG TABLET. PO SCH (08:07)
[2021-07-25] MEDS: cloNIDine HCL 0.2 MG TABLET PO SCH ×2 (08:07→21:00)
[2021-07-25] MEDS: FLUoxetine HCL 20 MG CAPSULE PO SCH (08:08)
[2021-07-25] MEDS: cefTRIAXone IV Push 1 GM VIAL. IVP SCH (08:32)
[2021-07-25] MEDS: HEPARIN for SUB-Q USE 5,000 UNIT/ML VIAL. SQ SCH ×2 (08:45→22:50)
[2021-07-25 11:00] VITALS: BP 157/93
--- NOTE | 2021-07-25 12:40 | NUR ---
Patient arrived to room 673 via wheelchair from ER at 1240. Patient A&OX4. Complaints of slight headache. The patient, CLAUDIO RAMESH, 81 y/o, F admitted by PATRICK ROTHMAN MD, was given written information regarding hospital policies, unit procedures and contact persons. Valuables were checked and noted. Will continue to monitor. Addendum: 07/25/21 at 1639 by JOO ZAMORA RN IGNORE THIS NOTE, WRONG PATIENT
--- NOTE | 2021-07-25 12:55 | PDOC ---
[employer] PROGRESS NOTE Date of Service DOS: DATE: 07/25/21 TIME: 12:53 Chief Complaint Chief Complaint AMS Acute cystitis Dehydration Plan: Continue treatment with Rocephin 1 g daily Currently n.p.o. due to failed swallow study Continue treatment with Clinimix FEN - NPO PPX - Heparin FULL CODE Dispo - inpatient for above admitted withdehydration and urinary tract infection. We have started Ceftriaxone while awaiting urine culture results. Speech and Swallow has called and told me that she failed her swallow study and will not be able to even take her medications by mouth at this point. We will initiate Clinimix and hold her n.p.o. for further assessment. The patient is a full code per the record. Inpatient status is most appropriate as we anticipate a length of stay of at least 2-3 midnights while we work this through. She may use SCDs for DVT. History of Present Illness History of Present Illness 07/24/2021: Patient seen and evaluated. No acute vents overnight, low-grade fever this morning (T-max 100.1 F). She is a long-term resident at [facility]. Currently n.p.o. due to dysphagia; ST following. Continue treatment of acute cystitis with Rocephin 1 g daily. Continue to follow urine culture. 07/25/2021: Patient seen and evaluated bedside. Afebrile overnight. Resting comfortably in bed. Not answering many questions. Still norma n.p.o. We will continue treatment UTI with Rocephin 1 g daily for total of 3 days. Urine culture grew E. coli and Pseudomonas; susceptibilities pending. Will provide IV normal fluids. Vitals/I&O Vitals/I&O: Vital Signs Date Time Temp Pulse Resp B/P (MAP) Pulse Ox O2 Delivery O2 Flow Rate FiO2 07/25/21 11:00 97.9 92 16 157/93 (114) 100 Room Air 97.9 I & O 07/24/21 07/24/21 07/25/21 15:00 23:00 07:00 Intake Total 0 ml 0 ml Output Total 500 ml Balance 0 ml -500 ml 0 ml Physical Exam General: No acute distress Heart: Regular rate Lungs: Clear Abdomen: Soft, No tenderness Extremities: No clubbing, No cyanosis Skin: No rashes, No breakdown Assessment and Plan Assessmemt and Plan Problems Medical Problems: (1) AMS (altered mental status) Status: Acute (2) UTI (urinary tract infection) Status: Acute Comment Review of Relevant I have reviewed the following items shakeel (where applicable) has been applied. Medications: Current Medications Medications (Trade) Dose Ordered Sig/Allyson Route PRN Reason Start Time Stop Time Status Last Admin Dose Admin Hydralazine HCl (Apresoline Inj) 10 mg PRN Q4HRS PRN IVP ELEVATED BP, SEE COMMENTS 07/24/21 19:00 07/24/21 23:13 Heparin Sodium (Porcine) (Heparin Sodium) 5,000 unit Q12HR SQ 07/24/21 21:00 07/25/21 08:45 Justifications for Admission Other Justification HTN urgency PARMJIT CAMERON MD Jul 25, 2021 12:55
[2021-07-25] MEDS ORDERED: IV 1/2 NORMAL SALINE 1,000 ML IV ONE (13:00)
[2021-07-25 15:00] VITALS: BP 170/88
--- NOTE | 2021-07-25 15:17 | NUR ---
SS following up with discharge planning. SS reviewed pt chart and discussed with pt RN. Pt is LTC resident from [place], ; fax [phone]. COVID19 negative. Pt is currently on room air. Pt on IV Rocephin. Pt NPO and on IV Clinimix. PT/OT reported no needs. Discharge plan is currently to return to [facility] when medically stable for discharge. SS will continue to follow for discharge planning.
[2021-07-25] MEDS: CEFEPIME HCL IV Push 1 GM VIAL. IVP SCH (17:51)
[2021-07-25] MEDS: hydrALAZINE 20 MG/ML VIAL. IVP PRN ×2 (18:00→23:01)
[2021-07-25 19:35] VITALS: BP 182/96
[2021-07-25] MEDS: ATORVASTATIN CALCIUM 40 MG TABLET. PO SCH (21:00)
[2021-07-25 22:50] VITALS: BP 213/107
[2021-07-26] VITALS (7 sets, daily range): BP systolic 135–169; BP diastolic 67–98
[2021-07-26] MEDS: AA 4.25 %/CALCIUM/LYTES/D5W 1,000 ML IV SCH ×2 (05:38→23:28)
[2021-07-26] MEDS: cloNIDine HCL 0.2 MG TABLET PO SCH ×2 (07:58→21:00)
[2021-07-26] MEDS: CLOPIDOGREL BISULFATE 75 MG TABLET PO SCH (07:58)
[2021-07-26] MEDS: MEMANTINE 10 MG TABLET. PO SCH ×2 (07:58→21:00)
[2021-07-26] MEDS: FERROUS SULFATE 325 MG TABLET. PO SCH (07:58)
[2021-07-26] MEDS: CARVEDILOL 12.5 MG TABLET. PO SCH ×2 (07:58→16:18)
[2021-07-26] MEDS: FLUoxetine HCL 20 MG CAPSULE PO SCH (07:59)
[2021-07-26] MEDS: LISINOPRIL 5 MG TABLET. PO SCH (07:59)
[2021-07-26] MEDS: CEFEPIME HCL IV Push 1 GM VIAL. IVP SCH ×2 (08:01→21:40)
[2021-07-26] MEDS: HEPARIN for SUB-Q USE 5,000 UNIT/ML VIAL. SQ SCH ×2 (08:01→21:48)
[2021-07-26 08:34] LABS: CALCIUM 9.8 mg/dL (8.5-10.1); CREATININE 0.8 mg/dL (0.6-1.0); GFR 83.5; POTASSIUM 3.2 mmol/L (3.5-5.1)
--- NOTE | 2021-07-26 11:51 | PDOC ---
[employer] PROGRESS NOTE Date of Service DOS: DATE: 07/26/21 TIME: 11:46 Chief Complaint Chief Complaint AMS Acute cystitis Dehydration Plan: Continue treatment with Rocephin 1 g daily Currently n.p.o. due to failed swallow study Continue treatment with Clinimix FEN - NPO PPX - Heparin FULL CODE Dispo - inpatient for above admitted withdehydration and urinary tract infection. We have started Ceftriaxone while awaiting urine culture results. Speech and Swallow has called and told me that she failed her swallow study and will not be able to even take her medications by mouth at this point. We will initiate Clinimix and hold her n.p.o. for further assessment. The patient is a full code per the record. Inpatient status is most appropriate as we anticipate a length of stay of at least 2-3 midnights while we work this through. She may use SCDs for DVT. History of Present Illness History of Present Illness 07/24/2021: Patient seen and evaluated. No acute vents overnight, low-grade fever this morning (T-max 100.1 F). She is a long-term resident at [facility]. Currently n.p.o. due to dysphagia; ST following. Continue treatment of acute cystitis with Rocephin 1 g daily. Continue to follow urine culture. 07/25/2021: Patient seen and evaluated bedside. Afebrile overnight. Resting comfortably in bed. Not answering many questions. Still norma n.p.o. We will continue treatment UTI with Rocephin 1 g daily for total of 3 days. Urine culture grew E. coli and Pseudomonas; susceptibilities pending. Will provide IV normal fluids. 07/26/2021: Patient seen and evaluated. Much more alert today. Changed her antibiotic from Rocephin to cefepime yesterday for Pseudomonas coverage. However urine culture grew Pseudomonas and E. coli, pansensitive cephalosporins. Day 3 of IV antibiotics with Rocephin/cefepime, so her antibiotic regimen for simple cystitis will be finished tomorrow. Spoke with ST, patient's still failing swallow evaluation; remains n.p.o. Continue with TPN. Placed consultation to nutrition and GI for possible PEG tube placement. Vitals/I&O Vitals/I&O: Vital Signs Date Time Temp Pulse Resp B/P (MAP) Pulse Ox O2 Delivery O2 Flow Rate FiO2 07/26/21 10:51 97.9 92 16 169/85 (113) 95 Room Air 97.9 I & O 07/25/21 07/25/21 07/26/21 15:00 23:00 07:00 Intake Total 0 ml 0 ml 0 ml Balance 0 ml 0 ml 0 ml Physical Exam General: Alert, No acute distress Heart: Regular rate Lungs: Clear Abdomen: Soft, No tenderness Extremities: No clubbing, No cyanosis Skin: No rashes, No breakdown Labs Labs: Laboratory Tests Test 07/26/21 07:00 Sodium Level 143 mmol/L (136-145) Potassium Level 3.2 mmol/L (3.5-5.1) Chloride Level 105 mmol/L (98-107) Carbon Dioxide Level 26 mmol/L (21-32) Anion Gap 12 (6-14) Blood Urea Nitrogen 41 mg/dL (7-20) Creatinine 0.8 mg/dL (0.6-1.0) Estimated GFR (Cockcroft-Gault) 83.5 Glucose Level 119 mg/dL (70-99) Calcium Level 9.8 mg/dL (8.5-10.1) Assessment and Plan Assessmemt and Plan Problems Medical Problems: (1) AMS (altered mental status) Status: Acute (2) UTI (urinary tract infection) Status: Acute Comment Review of Relevant I have reviewed the following items shakeel (where applicable) has been applied. Medications: Current Medications Medications (Trade) Dose Ordered Sig/Allyson Route PRN Reason Start Time Stop Time Status Last Admin Dose Admin Cefepime HCl (Maxipime) 1 gm Q12HR IVP 07/25/21 17:00 08/04/21 16:59 07/26/21 08:01 Justifications for Admission Other Justification HTN urgency PARMJIT CAMERON MD Jul 26, 2021 11:51
--- NOTE | 2021-07-26 13:54 | PDOC2 ---
GI CONSULT Date of Service: DATE: 07/26/21 TIME: 13:26 Reason For Consult: failed swallow study, consult for possible PEG HPI: HPI: 81 y/o female who is non-verbal, here w/ UTI. H/o CVA, hemiparesis, and dysphagia previously on dysphagia diet, now failing swallow evals. We are asked to see re: possible PEG placement. Unclear if this possibility has been discussed with family. Son Hong is listed as DPOA in chart. GERD listed in PMH. Diverticulosis noted on past imaging along w/ fatty infiltration adjacent to falciform ligament, unremarkable liver and GB, and mild pancreatic atrophy. CT A/P done in ER in 05/2021 showed solid enhancing 1.9cm left kidney lesion suspicious for renal cell cancer and bilateral indeterminate renal lesions. MRI was recommended. Seems usually on Plavix but has been NPO (on Heparin) here. Unclear when last dose taken. INR 1.2 on 07/22. Summary list includes iron. Family had her evaluated in the ER on 07/18 because she was not eating at her living facility. PMH: PMH: HTN, vascular dementia, HLD, CVA, UTI, DM hysterectomy FH: Family History: No pertinent hx Social History: Smoke: No ALCOHOL: none Drugs: None ROS: unable to obtain chart mentions weight loss Vitals: Vitals: Vital Signs Date Time Temp Pulse Resp B/P (MAP) Pulse Ox O2 Delivery O2 Flow Rate FiO2 07/26/21 10:51 97.9 92 16 169/85 (113) 95 Room Air 97.9 Labs: Labs: Laboratory Tests Test 07/26/21 07:00 Sodium Level 143 mmol/L (136-145) Potassium Level 3.2 mmol/L (3.5-5.1) Chloride Level 105 mmol/L (98-107) Carbon Dioxide Level 26 mmol/L (21-32) Anion Gap 12 (6-14) Blood Urea Nitrogen 41 mg/dL (7-20) Creatinine 0.8 mg/dL (0.6-1.0) Estimated GFR (Cockcroft-Gault) 83.5 Glucose Level 119 mg/dL (70-99) Calcium Level 9.8 mg/dL (8.5-10.1) Allergies: Coded Allergies: Sulfa (Sulfonamide Antibiotics) (Verified Allergy, Intermediate, 12/25/20) latex (Verified Allergy, Intermediate, 12/25/20) red dye (Verified Allergy, Intermediate, 12/25/20) yellow dye (Verified Allergy, Intermediate, 12/25/20) Medications: Current Medications Medications (Trade) Dose Ordered Sig/Allyson Route PRN Reason Start Time Stop Time Status Last Admin Dose Admin Cefepime HCl (Maxipime) 1 gm Q12HR IVP 07/25/21 17:00 08/04/21 16:59 07/26/21 08:01 Imaging: Imaging: CXR IMPRESSION: No radiographic evidence of an acute cardiopulmonary process. Head CT IMPRESSION: 1. No evidence of acute cranial hemorrhage or mass. 2. Moderate chronic small vessel ischemic changes and atrophy, similar to prior study. MDS COORDINATOR 07/26 * Pt continues w/ reduced a-p transfer & ABSENT swallow initiation on 01/25 ice chip trials. Suspect h/o CVA & current altered mentation 2* acute illness/UTI may both be contributing to current dysphagia. IMPRESSIONS: Ltmd to no progress toward safe, efficient po intake since eval of 07/23. Pt con't to receive tx for UTI. If current alt. MS and dysphagia is r/t same, pt may progress w/con't medical tx. If current dysphagia is r/t progression of dementia, recovery to po diet may be less feasible. Pt was on a diet at facility [facility] and had a clear PXCR at adm. RECOMMENDATIONS: NPO meds/nutrition & aggressive oral care. Precautions r emain posted. PE: GEN: chronically ill HEENT: Atraumatic, PERRL LUNGS: CTAB HEART: RRR ABD: NABS, S/ND/NT, vertical surgical scar inferior to umbilicus EXTREMITY: No edema SKIN: No rashes, no jaundice NEURO/PSYCH: awake, follows me with her eyes, follows commands (squeezes my finer with her right hand), left neglect - I asked her if she wanted a feeding tube and she shook her head no, I asked her if she was hungry and she shook her head no - unclear how meaningful this response is A/P: A/P: UTI H/o CVA, dementia, and dysphagia - NPO on PPN w/ abnormal MDS COORDINATOR eval (see above), on Heparin - records indicate recently not eating, weight loss Mild anemia, COVID negative 07/22 ?GERD, diverticulosis Abnormal CT 05/2021 w/ solid left renal lesion - MRI recommended -- Admitted w/ UTI/AMS. Chronic dysphagia - now worse. Defer goals of care to primary. Available to discuss PEG procedure, potential associated risks w/ DPOA. PEG placement unlikely to change halfway survival. Consider addition of acid-consultative sales associate. LAURE PAPPAS Jul 26, 2021 13:54
[2021-07-26] MEDS: POTASSIUM CHLORIDE 10MEQ 100 ML IV SCH ×3 (16:06→18:36)
--- NOTE | 2021-07-26 19:50 | NUR ---
Pt son called for an update of mother's care, assessment completed vss poc explained pt reoriented to surroundings, pt alert to self call light in reach will resume care and continue to monitor pt.
[2021-07-26] MEDS: ATORVASTATIN CALCIUM 40 MG TABLET. PO SCH (21:00)
[2021-07-27] VITALS (8 sets, daily range): BP systolic 54–176; BP diastolic 84–89
[2021-07-27] MEDS: CARVEDILOL 12.5 MG TABLET. PO SCH ×2 (07:23→16:06)
[2021-07-27] MEDS: cloNIDine HCL 0.2 MG TABLET PO SCH ×2 (07:23→23:00)
[2021-07-27] MEDS: CLOPIDOGREL BISULFATE 75 MG TABLET PO SCH (07:24)
[2021-07-27] MEDS: MEMANTINE 10 MG TABLET. PO SCH ×2 (07:24→23:01)
[2021-07-27] MEDS: LISINOPRIL 5 MG TABLET. PO SCH (07:24)
[2021-07-27] MEDS: FERROUS SULFATE 325 MG TABLET. PO SCH (07:24)
[2021-07-27] MEDS: FLUoxetine HCL 20 MG CAPSULE PO SCH (07:24)
[2021-07-27] MEDS: CEFEPIME HCL IV Push 1 GM VIAL. IVP SCH ×2 (08:07→23:17)
[2021-07-27] MEDS: hydrALAZINE 20 MG/ML VIAL. IVP PRN ×2 (08:07→16:10)
[2021-07-27] MEDS: HEPARIN for SUB-Q USE 5,000 UNIT/ML VIAL. SQ SCH ×2 (08:15→23:19)
--- NOTE | 2021-07-27 10:07 | PDOC ---
Date of Service: DATE: 07/27/21 TIME: 10:03 Subjective: Subjective: I asked if she wanted a feeding tube; she shook her head no. Objective: Objective: D/w nurse - son coming to visit today. D/w Dr. Awad and med students. Vital Signs: Vital Signs Date Time Temp Pulse Resp B/P (MAP) Pulse Ox O2 Delivery O2 Flow Rate FiO2 07/27/21 09:01 158/86 (110) 07/27/21 08:07 97 07/27/21 07:00 98.3 16 100 Room Air 98.3 Labs: BLOOD CULTURE Preliminary NO GROWTH AFTER 4 DAYS PE: GEN: chronically ill LUNGS: CTAB HEART: RRR ABD: S/ND/NT NEURO/PSYCH: awake, makes eye contact, shakes head no, non-verbal A/P: UTI H/o CVA, dementia, chronic dysphagia (worse) - on Heparin COVID negative 07/[address] 05/2021 w/ solid left renal lesion - defer to primary -- Follow PULP GRINDER evals. Goals of care discussion per primary. Available to speak w/ son/DPOA if needed. Justicifation of Admission Dx: Justifications for Admission: Justification of Admission Dx: N/A LAURE PAPPAS Jul 27, 2021 10:07
[2021-07-27 10:20] LABS: CALCIUM 9.7 mg/dL (8.5-10.1); CREATININE 0.8 mg/dL (0.6-1.0); GFR 83.5; POTASSIUM 3.8 mmol/L (3.5-5.1)
[2021-07-27] MEDS: AA 4.25 %/CALCIUM/LYTES/D5W 1,000 ML IV SCH ×2 (12:43→23:15)
--- NOTE | 2021-07-27 13:44 | PDOC ---
[employer] PROGRESS NOTE Date of Service DOS: DATE: 07/27/21 TIME: 13:21 Chief Complaint Chief Complaint AMS Acute cystitis Dehydration Dysphagia History of Present Illness History of Present Illness HPI: This patient is an 81-year-old woman who is well known to me from many years of outpatient primary care work together until about a year ago after her , her dementia worsened and she needed to be move to [facility]. I have not seen her since that time. She has markedly declined and has lost at least 50 pounds or more and is completely disengaged and did not recognize me on my evaluation this morning. The patient was sent in with altered mental status, was found to have a urinary tract infection. Final culture results are pending and blood cultures have been sent. It looks like the patient has also been refusing to eat and drink there and is also quite dehydrated. The patient appeared comfortable on my assessment this morning. There is no other report from the [facility] of new symptoms including no cough, congestion, pain anywhere, falls, or any other new specific constitutional symptoms. All other systems reviewed and negative. 07/24/2021: Patient seen and evaluated. No acute vents overnight, low-grade fever this morning (T-max 100.1 F). She is a long-term resident at [facility]. Currently n.p.o. due to dysphagia; ST following. Continue treatment of acute cystitis with Rocephin 1 g daily. Continue to follow urine culture. 07/25/2021: Patient seen and evaluated bedside. Afebrile overnight. Resting comfortably in bed. Not answering many questions. Still norma n.p.o. We will continue treatment UTI with Rocephin 1 g daily for total of 3 days. Urine culture grew E. coli and Pseudomonas; susceptibilities pending. Will provide IV normal fluids. 07/26/2021: Patient seen and evaluated. Much more alert today. Changed her antibiotic from Rocephin to cefepime yesterday for Pseudomonas coverage. However urine culture grew Pseudomonas and E. coli, pansensitive cephalosporins. Day 3 of IV antibiotics with Rocephin/cefepime, so her antibiotic regimen for simple cystitis will be finished tomorrow. Spoke with ST, patient's still failing swallow evaluation; remains n.p.o. Continue with TPN. Placed consultation to nutrition and GI for possible PEG tube placement. 07/27/2021: Patient seen and examined. She is awake and in no acute distress. Patient completed her regimen of rocephin/cefepime today. Consulted with GI regarding PEG tube placement. She is on IV clinimix. Speech therapy will be re- evaluating her swallowing tomorrow 07/28. Discussed with RN. Chart reviewed. Vitals/I&O Vitals/I&O: Vital Signs Date Time Temp Pulse Resp B/P (MAP) Pulse Ox O2 Delivery O2 Flow Rate FiO2 07/27/21 11:00 98.0 98 16 169/89 (115) 100 Room Air 98.0 I & O 07/26/21 07/26/21 07/27/21 15:00 23:00 07:00 Intake Total 0 ml 0 ml Output Total 1 ml Balance 0 ml -1 ml 0 ml Physical Exam General: Alert, No acute distress Heart: Regular rate Lungs: Clear Abdomen: Soft, No tenderness Extremities: No clubbing, No cyanosis Skin: No rashes, No breakdown Labs Labs: Laboratory Tests Test 07/27/21 09:40 Sodium Level 140 mmol/L (136-145) Potassium Level 3.8 mmol/L (3.5-5.1) Chloride Level 106 mmol/L (98-107) Carbon Dioxide Level 25 mmol/L (21-32) Anion Gap 9 (6-14) Blood Urea Nitrogen 40 mg/dL (7-20) Creatinine 0.8 mg/dL (0.6-1.0) Estimated GFR (Cockcroft-Gault) 83.5 Glucose Level 122 mg/dL (70-99) Calcium Level 9.7 mg/dL (8.5-10.1) Review of Systems Review of Systems: Gastrointestinal: No nausea or vomiting. Lungs: No cough or shortness of breath. Assessment and Plan Assessmemt and Plan Problems Medical Problems: (1) AMS (altered mental status) Status: Acute (2) UTI (urinary tract infection) Status: Acute Assessment: AMS Acute cystitis Dehydration Dysphagia Plan: 1) Completed rocephin/cefepime antibiotic regimen today. 2) Continue Clinimix. Awaiting speech therapy re-evaluation. 3) Appreciate subspeciality consult. - GI: PEG placement unlikely to change termination clerk survival. 4) Continue heparin. 5) Full code 6) PTOT Comment Review of Relevant I have reviewed the following items shakeel (where applicable) has been applied. Medications: Current Medications Medications (Trade) Dose Ordered Sig/Allyson Route PRN Reason Start Time Stop Time Status Last Admin Dose Admin Potassium Chloride/Water 100 ml @ 100 mls/hr Q1H IV 07/26/21 17:00 07/26/21 19:59 DC 07/26/21 18:36 Justifications for Admission Other Justification HTN urgency VESTA GONZALES III DO Jul 27, 2021 13:44
--- NOTE | 2021-07-27 19:20 | NUR ---
Pt son at bedside assessment completed vss poc explained to pt son pt resting comfortable will resume care and continue to monitor pt.
--- NOTE | 2021-07-27 20:06 | NUR ---
Transfer of care note: Report called to Rajendra Mclain pt transferring to room 536 per bed.
[2021-07-27] MEDS: ATORVASTATIN CALCIUM 40 MG TABLET. PO SCH (23:00)
[2021-07-28 03:00] VITALS: BP 154/82
[2021-07-28 07:00] VITALS: BP 165/87
[2021-07-28 07:29] LABS: BASO % 0 % (0-3); EOS % 1 % (0-3); HEMATOCRIT 33.1 % (36.0-47.0); LYMPH # 0.6 x10^3/uL (1.0-4.8); LYMPH % 10 % (24-48); MEAN CORPUSCULAR HEMOGLOBIN 30 pg (25-35); MEAN CORPUSCULAR HGB CONC 33 g/dL (31-37); MEAN CORPUSCULAR VOLUME 90 fL (79-100); MONO # 0.4 x10^3/uL (0.0-1.1); MONO % 7 % (0-9); NEUT # 4.8 x10^3/uL (1.8-7.7); NEUT % 82 % (31-73); PLATELET COUNT 231 x10^3/uL (140-400); RED BLOOD COUNT 3.66 x10^6/uL (3.50-5.40); RED CELL DISTRIBUTION WIDTH 15.2 % (11.5-14.5); WHITE BLOOD COUNT 5.8 x10^3/uL (4.0-11.0)
[2021-07-28 07:42] LABS: CALCIUM 9.9 mg/dL (8.5-10.1); CREATININE 0.8 mg/dL (0.6-1.0); GFR 83.5; POTASSIUM 4.1 mmol/L (3.5-5.1)
[2021-07-28] MEDS: CARVEDILOL 12.5 MG TABLET. PO SCH ×2 (08:00→17:00)
[2021-07-28] MEDS: AA 4.25 %/CALCIUM/LYTES/D5W 1,000 ML IV SCH ×2 (08:28→22:09)
[2021-07-28] MEDS: CEFEPIME HCL IV Push 1 GM VIAL. IVP SCH ×2 (08:30→22:10)
[2021-07-28] MEDS: HEPARIN for SUB-Q USE 5,000 UNIT/ML VIAL. SQ SCH ×2 (08:40→22:11)
[2021-07-28] MEDS: cloNIDine HCL 0.2 MG TABLET PO SCH ×2 (09:00→22:03)
[2021-07-28] MEDS: LISINOPRIL 5 MG TABLET. PO SCH (09:00)
[2021-07-28] MEDS: FLUoxetine HCL 20 MG CAPSULE PO SCH (09:00)
[2021-07-28] MEDS: MEMANTINE 10 MG TABLET. PO SCH ×2 (09:00→22:03)
[2021-07-28] MEDS: CLOPIDOGREL BISULFATE 75 MG TABLET PO SCH (09:00)
[2021-07-28] MEDS: FERROUS SULFATE 325 MG TABLET. PO SCH (09:00)
--- NOTE | 2021-07-28 09:10 | PDOC ---
G I PROGRESS NOTE Reason for Follow-up Oropharyngeal dysphagia s/p cva Subjective No new complaints Physical Exam Lungs clear CV S1 S2 ABD +BS, soft, nontender Review of Relevant I have reviewed the following items shakeel (where applicable) has been applied. Labs Laboratory Tests Test 07/27/21 09:40 07/28/21 05:45 Sodium Level 140 mmol/L (136-145) 136 mmol/L (136-145) Potassium Level 3.8 mmol/L (3.5-5.1) 4.1 mmol/L (3.5-5.1) Chloride Level 106 mmol/L (98-107) 102 mmol/L (98-107) Carbon Dioxide Level 25 mmol/L (21-32) 26 mmol/L (21-32) Anion Gap 9 (6-14) 8 (6-14) Blood Urea Nitrogen 40 mg/dL (7-20) 41 mg/dL (7-20) Creatinine 0.8 mg/dL (0.6-1.0) 0.8 mg/dL (0.6-1.0) Estimated GFR (Cockcroft-Gault) 83.5 83.5 Glucose Level 122 mg/dL (70-99) 112 mg/dL (70-99) Calcium Level 9.7 mg/dL (8.5-10.1) 9.9 mg/dL (8.5-10.1) White Blood Count 5.8 x10^3/uL (4.0-11.0) Red Blood Count 3.66 x10^6/uL (3.50-5.40) Hemoglobin 11.0 g/dL (12.0-15.5) Hematocrit 33.1 % (36.0-47.0) Mean Corpuscular Volume 90 fL (79-100) Mean Corpuscular Hemoglobin 30 pg (25-35) Mean Corpuscular Hemoglobin Concent 33 g/dL (31-37) Red Cell Distribution Width 15.2 % (11.5-14.5) Platelet Count 231 x10^3/uL (140-400) Neutrophils (%) (Auto) 82 % (31-73) Lymphocytes (%) (Auto) 10 % (24-48) Monocytes (%) (Auto) 7 % (0-9) Eosinophils (%) (Auto) 1 % (0-3) Basophils (%) (Auto) 0 % (0-3) Neutrophils # (Auto) 4.8 x10^3/uL (1.8-7.7) Lymphocytes # (Auto) 0.6 x10^3/uL (1.0-4.8) Monocytes # (Auto) 0.4 x10^3/uL (0.0-1.1) Eosinophils # (Auto) 0.0 x10^3/uL (0.0-0.7) Basophils # (Auto) 0.0 x10^3/uL (0.0-0.2) Laboratory Tests Test 07/27/21 09:40 07/28/21 05:45 Sodium Level 140 mmol/L (136-145) 136 mmol/L (136-145) Potassium Level 3.8 mmol/L (3.5-5.1) 4.1 mmol/L (3.5-5.1) Chloride Level 106 mmol/L (98-107) 102 mmol/L (98-107) Carbon Dioxide Level 25 mmol/L (21-32) 26 mmol/L (21-32) Anion Gap 9 (6-14) 8 (6-14) Blood Urea Nitrogen 40 mg/dL (7-20) 41 mg/dL (7-20) Creatinine 0.8 mg/dL (0.6-1.0) 0.8 mg/dL (0.6-1.0) Estimated GFR (Cockcroft-Gault) 83.5 83.5 Glucose Level 122 mg/dL (70-99) 112 mg/dL (70-99) Calcium Level 9.7 mg/dL (8.5-10.1) 9.9 mg/dL (8.5-10.1) White Blood Count 5.8 x10^3/uL (4.0-11.0) Red Blood Count 3.66 x10^6/uL (3.50-5.40) Hemoglobin 11.0 g/dL (12.0-15.5) Hematocrit 33.1 % (36.0-47.0) Mean Corpuscular Volume 90 fL (79-100) Mean Corpuscular Hemoglobin 30 pg (25-35) Mean Corpuscular Hemoglobin Concent 33 g/dL (31-37) Red Cell Distribution Width 15.2 % (11.5-14.5) Platelet Count 231 x10^3/uL (140-400) Neutrophils (%) (Auto) 82 % (31-73) Lymphocytes (%) (Auto) 10 % (24-48) Monocytes (%) (Auto) 7 % (0-9) Eosinophils (%) (Auto) 1 % (0-3) Basophils (%) (Auto) 0 % (0-3) Neutrophils # (Auto) 4.8 x10^3/uL (1.8-7.7) Lymphocytes # (Auto) 0.6 x10^3/uL (1.0-4.8) Monocytes # (Auto) 0.4 x10^3/uL (0.0-1.1) Eosinophils # (Auto) 0.0 x10^3/uL (0.0-0.7) Basophils # (Auto) 0.0 x10^3/uL (0.0-0.2) Microbiology 07/22/21 Urine Culture - Final, Complete 07/22/21 Antimicrobic Susceptibility - Final, Complete 07/22/21 Blood Culture - Final, Complete NO GROWTH AFTER 5 DAYS Medications Current Medications Ringer's Solution 1,000 ml @ 100 mls/hr 1X ONCE IV Last administered on 07/22/21at 21:02; Start 07/22/21 at 18:45; Stop 07/23/21 at 04:44; Status DC Ringer's Solution 500 ml @ 500 mls/hr 1X ONCE IV Last administered on 07/22/21at 19:46; Start 07/22/21 at 18:45; Stop 07/22/21 at 19:44; Status DC Ondansetron HCl (Zofran) 4 mg PRN Q8HRS PRN IVP NAUSEA/VOMITING; Start 07/22/21 at 19:45; Stop 07/23/21 at 19:44; Status DC Sodium Chloride 1,000 ml @ 75 mls/hr [id number] IV Last administered on 07/23/21at 06:45; Start 07/22/21 at 19:45; Stop 07/25/21 at 01:45; Status DC Acetaminophen (Tylenol) 650 mg PRN Q4HRS PRN PO FEVER > 100.3'F; Start 07/22/21 at 19:45; Stop 07/23/21 at 19:44; Status DC Heparin Sodium (Porcine) (Heparin Sodium) 4,000 unit 1X ONCE IV ; Start 07/22/21 at 20:45; Stop 07/22/21 at 22:11; Status DC Heparin Sodium/ Dextrose 250 ml @ 8.7 mls/hr CONT PRN IV PER PROTOCOL; Start 07/22/21 at 20:45; Stop 07/22/21 at 22:11; Status DC Heparin Sodium (Porcine) (Heparin Sodium) 1,800 unit PRN Q6HRS PRN IV FOR UFH LEVEL LESS THAN 0.2; Start 07/22/21 at 20:45; Stop 07/22/21 at 22:11; Status DC Ceftriaxone Sodium (Rocephin) 1 gm QHS IVP Last administered on 07/23/21at 01:20; Start 07/23/21 at 01:30; Stop 07/23/21 at 09:20; Status DC Ceftriaxone Sodium (Rocephin) 1 gm Q24H IVP ; Start 07/23/21 at 05:30; Status UNV Ceftriaxone Sodium (Rocephin) 1 gm Q24H IVP ; Start 07/23/21 at 10:00; Stop 07/23/21 at 09:37; Status DC Atorvastatin Calcium (Lipitor) 80 mg QHS PO ; Start 07/23/21 at 21:00 Carvedilol (Coreg) 12.5 mg BIDWMEALS PO ; Start 07/23/21 at 17:00 Clonidine HCl (Catapres) 0.2 mg BID PO ; Start 07/23/21 at 21:00 Clopidogrel Bisulfate (Plavix) 75 mg DAILY PO Last administered on 07/23/21at 11:07; Start 07/23/21 at 10:00 Ferrous Sulfate (Feosol) 325 mg DAILY PO Last administered on 07/23/21at 11:07; Start 07/23/21 at 10:00 Memantine (Namenda) 10 mg BID PO Last administered on 07/23/21at 11:09; Start 07/23/21 at 10:00 Fluoxetine HCl (PROzac) 60 mg DAILY PO ; Start 07/24/21 at 09:00 Lisinopril (Prinivil) 2.5 mg DAILY PO Last administered on 07/23/21at 11:09; Start 07/23/21 at 10:00 Ceftriaxone Sodium (Rocephin) 1 gm Q24H IVP Last administered on 07/25/21at 08:32; Start 07/24/21 at 09:00; Stop 07/25/21 at 16:44; Status DC Amino Acids/ Electrolytes/ Dextrose 1,000 ml @ 80 mls/hr [id number] IV Last administered on 07/28/21at 08:28; Start 07/23/21 at 14:30 Hydralazine HCl (Apresoline Inj) 10 mg PRN Q4HRS PRN IVP ELEVATED BP, SEE COMMENTS Last administered on 07/24/21at 18:01; Start 07/23/21 at 14:30; Stop 07/24/21 at 18:54; Status DC Hydralazine HCl (Apresoline Inj) 10 mg PRN Q4HRS PRN IVP ELEVATED BP, SEE COMMENTS Last administered on 07/27/21at 16:10; Start 07/24/21 at 19:00 Heparin Sodium (Porcine) (Heparin Sodium) 5,000 unit Q12HR SQ Last administered on 07/28/21at 08:40; Start 07/24/21 at 21:00 Sodium Chloride 1,000 ml @ 100 mls/hr 1X ONCE IV ; Start 07/25/21 at 13:00; Stop 07/25/21 at 22:59; Status DC Cefepime HCl (Maxipime) 1 gm Q12HR IVP Last administered on 07/28/21at 08:30; Start 07/25/21 at 17:00; Stop 08/04/21 at 16:59 Potassium Chloride/Water 100 ml @ 100 mls/hr Q1H IV Last administered on 07/26/21at 18:36; Start 07/26/21 at 17:00; Stop 07/26/21 at 19:59; Status DC Active Scripts Active Atorvastatin Calcium 40 Mg Tablet 80 Mg PO QHS 90 Days Reported Fluoxetine Hcl 60 Mg Tablet 60 Mg PO DAILY Olanzapine 10 Mg Tablet 10 Mg PO HS Namenda (Memantine Hcl) 10 Mg Tablet 10 Mg PO BID Remeron (Mirtazapine) 30 Mg Tablet 30 Mg PO DAILY Lisinopril 2.5 Mg Tablet 2.5 Mg PO DAILY Oxybutynin Chloride Er (Oxybutynin Chloride) 10 Mg Tab.er.24 10 Mg PO DAILY Metformin Hcl 500 Mg Tablet 500 Mg PO BIDWMEALS Ferrous Sulfate 325 Mg Tablet 1 Tab PO DAILY 1 Days Clopidogrel (Clopidogrel Bisulfate) 75 Mg Tablet 1 Tab PO DAILY Clonidine Hcl 0.2 Mg Tablet 0.2 Mg PO BID Carvedilol (Carvedilol) 12.5 Mg Tablet 12.5 Mg PO BIDWMEALS Vitals/I & O Vital Sign - Last 24 Hours 07/27/21 07/27/21 07/27/21 07/27/21 11:00 15:00 16:10 19:20 Temp 98.0 98.1 98.0 98.1 Pulse 98 95 94 Resp 16 12 B/P (MAP) 169/89 (115) 166/85 (112) 166/85 Pulse Ox 100 100 O2 Delivery Room Air Nasal Cannula Room Air 07/27/21 07/27/21 07/27/21 07/28/21 19:28 20:30 23:00 03:00 Temp 98.5 98.0 98.3 98.3 98.5 98.0 98.3 98.3 Pulse 107 105 101 105 Resp 14 16 18 18 B/P (MAP) 161/85 (110) 54/84 (74) 175/84 (114) 154/82 (106) Pulse Ox 99 97 97 97 O2 Delivery Room Air 07/28/21 07:00 Temp 98.6 98.6 Pulse 103 Resp 16 B/P (MAP) 165/87 (113) Pulse Ox 97 O2 Delivery Room Air Intake and Output 07/27/21 07/27/21 07/28/21 15:00 23:00 07:00 Intake Total 0 ml 0 ml 0 ml Balance 0 ml 0 ml 0 ml Problem List Problems Medical Problems: (1) AMS (altered mental status) Status: Acute (2) UTI (urinary tract infection) Status: Acute Assessment Oropharyngeal dysphagia- s/p cva, comfort recommended wihtout improved survival with EPG. No additional recommendations at this time. Available if further problems should arise. Justicifation of Admission Dx: Justifications for Admission: Justification of Admission Dx: N/A CHAYO WELSH MD Jul 28, 2021 09:10
--- NOTE | 2021-07-28 10:25 | PDOC ---
PROGRESS NOTES Date of Service: DATE: 07/28/21 TIME: 10:25 Chief Complaint Chief Complaint AMS Acute cystitis Dehydration Dysphagia History of Present Illness History of Present Illness HPI: This patient is an 81-year-old woman who is well known to me from many years of outpatient primary care work together until about a year ago after her , her dementia worsened and she needed to be move to [facility]. I have not seen her since that time. She has markedly declined and has lost at least 50 pounds or more and is completely disengaged and did not recognize me on my evaluation this morning. The patient was sent in with altered mental status, was found to have a urinary tract infection. Final culture results are pending and blood cultures have been sent. It looks like the patient has also been refusing to eat and drink there and is also quite dehydrated. The patient appeared comfortable on my assessment this morning. There is no other report from the [facility] of new symptoms including no cough, congestion, pain anywhere, falls, or any other new specific constitutional symptoms. All other systems reviewed and negative. 07/24/2021: Patient seen and evaluated. No acute vents overnight, low-grade fever this morning (T-max 100.1 F). She is a long-term resident at [place]. Currently n.p.o. due to dysphagia; ST following. Continue treatment of acute cystitis with Rocephin 1 g daily. Continue to follow urine culture. 07/25/2021: Patient seen and evaluated bedside. Afebrile overnight. Resting comfortably in bed. Not answering many questions. Still norma n.p.o. We will continue treatment UTI with Rocephin 1 g daily for total of 3 days. Urine culture grew E. coli and Pseudomonas; susceptibilities pending. Will provide IV normal fluids. 07/26/2021: Patient seen and evaluated. Much more alert today. Changed her antibiotic from Rocephin to cefepime yesterday for Pseudomonas coverage. However urine culture grew Pseudomonas and E. coli, pansensitive cephalosporins. Day 3 of IV antibiotics with Rocephin/cefepime, so her antibiotic regimen for simple cystitis will be finished tomorrow. Spoke with ST, patient's still failing swallow evaluation; remains n.p.o. Continue with TPN. Placed consultation to nutrition and GI for possible PEG tube placement. 07/27/2021: Patient seen and examined. She is awake and in no acute distress. Patient completed her regimen of rocephin/cefepime today. Consulted with GI regarding PEG tube placement. She is on IV clinimix. Speech therapy will be re- evaluating her swallowing tomorrow 07/28. Discussed with RN. Chart reviewed. 07/28/2021 81 y/o female who is non-verbal, w/ UTI. H/o CVA, hemiparesis,dysphagia previously / failing swallow evals. s/p cva, comfort recommended without improved survival with EPG. markedly declined and has lost at least 50 pounds / disengaged seen and examined awake and in no acute distress. regimen of rocephin/cefepime Consulted with GI regarding PEG tube placement. on IV clinimix. Speech therapy will be re-evaluating her swallowing 07/28. Discussed with RN. Chart reviewed. Vitals Vitals Vital Signs Date Time Temp Pulse Resp B/P (MAP) Pulse Ox O2 Delivery O2 Flow Rate FiO2 07/28/21 07:00 98.6 103 16 165/87 (113) 97 Room Air 98.6 Physical Exam General: Alert, Cooperative, No acute distress Heart: Regular rate, Normal S1 Lungs: Clear Abdomen: Soft, No tenderness Extremities: No clubbing, No cyanosis Skin: No rashes, No breakdown Labs LABS talk about your own wishes for healthcare in case youre ever not able to tell your loved ones or healthcare team what your wishes are. If you became really sick tomorrow, would your loved ones or healthcare team know what your wishes were? Here are some examples of different sets of goals and health care directives for your conversations: My wish is to use all medical therapies including resuscitation (such as CPR) and artificial life-sustaining treatments (such as machines and medicine) in an intensive care unit, to keep me alive if at all possible. My wish is to live as long as possible, but I dont want attempts to bring me back to life if my heart and breathing stop. I would like full medical care but without using resuscitation or artificial life-sustaining intensive treatments, if these are unlikely to make me live longer or restore me to a certain quality of life. I will accept treatments that try to fix medical problems, but if Im not getting better or going to have a certain quality of life, I would want to switch to focusing only on my comfort and letting my happen naturally. My wish is for healthcare to focus on my comfort and lessen suffering. I would like medical care that focuses only on my quality of life and that allows me to naturally. Consider: What does a good quality of life mean for me? For many people, it is the ability to live independently and tell their own story. I may define it differently. Under what circumstances would I not want to be kept alive by medical treatments, resuscitation, or intensive care? What kind of changes to my health or life might make me change my mind? If I clearly am facing the last chapter of my life, how do I want the story to end? Who do I want to speak for me if I cant speak for myself? Do they understand my preferences? Are they willing to assume the role of my Durable Power of Door Installer? Can I change my Goals of Care Designation? Yes, your Goals of Care Designation can be changed at any time. It should be reviewed if: your health condition changes your circumstances change (such as new understanding) you are transferred or admitted to another healthcare setting dpoa review, to pt portal 18 min and question review PATIENT: CLAUDIO RAMESH AACCOUNT: [id number] : 1940 LOCATION: ER AGE: 81 SEX: F EXAM STATUS: REG ER ORD. PHYSICIAN: ISIDRO ALVARADO MD REASON: fever PROCEDURE: CHEST AP ONLY EXAM: CHEST 1 VIEW History: Fever COMPARISON: 07/18/2021 TECHNIQUE: Single portable radiograph of the chest FINDINGS: The cardiac silhouette is unremarkable. The lungs are clear bilaterally. The costophrenic sulci are clear and well demarcated. IMPRESSION: No radiographic evidence of an acute cardiopulmonary process. Electronically signed by: Adalid Gaston MD (07/22/2021 8:37 PM) [id number] DICTATED and SIGNED BY: ADALID GASTON MD DATE: 07/22/21 [id number] Laboratory Tests Test 07/28/21 05:45 White Blood Count 5.8 x10^3/uL (4.0-11.0) Red Blood Count 3.66 x10^6/uL (3.50-5.40) Hemoglobin 11.0 g/dL (12.0-15.5) Hematocrit 33.1 % (36.0-47.0) Mean Corpuscular Volume 90 fL (79-100) Mean Corpuscular Hemoglobin 30 pg (25-35) Mean Corpuscular Hemoglobin Concent 33 g/dL (31-37) Red Cell Distribution Width 15.2 % (11.5-14.5) Platelet Count 231 x10^3/uL (140-400) Neutrophils (%) (Auto) 82 % (31-73) Lymphocytes (%) (Auto) 10 % (24-48) Monocytes (%) (Auto) 7 % (0-9) Eosinophils (%) (Auto) 1 % (0-3) Basophils (%) (Auto) 0 % (0-3) Neutrophils # (Auto) 4.8 x10^3/uL (1.8-7.7) Lymphocytes # (Auto) 0.6 x10^3/uL (1.0-4.8) Monocytes # (Auto) 0.4 x10^3/uL (0.0-1.1) Eosinophils # (Auto) 0.0 x10^3/uL (0.0-0.7) Basophils # (Auto) 0.0 x10^3/uL (0.0-0.2) Sodium Level 136 mmol/L (136-145) Potassium Level 4.1 mmol/L (3.5-5.1) Chloride Level 102 mmol/L (98-107) Carbon Dioxide Level 26 mmol/L (21-32) Anion Gap 8 (6-14) Blood Urea Nitrogen 41 mg/dL (7-20) Creatinine 0.8 mg/dL (0.6-1.0) Estimated GFR (Cockcroft-Gault) 83.5 Glucose Level 112 mg/dL (70-99) Calcium Level 9.9 mg/dL (8.5-10.1) Assessment and Plan Assessmemt and Plan Problems Medical Problems: (1) AMS (altered mental status) Status: Acute (2) UTI (urinary tract infection) Status: Acute Comment Review of Relevant I have reviewed the following items shakeel (where applicable) has been applied. Labs Laboratory Tests Test 07/27/21 09:40 07/28/21 05:45 Sodium Level 140 mmol/L (136-145) 136 mmol/L (136-145) Potassium Level 3.8 mmol/L (3.5-5.1) 4.1 mmol/L (3.5-5.1) Chloride Level 106 mmol/L (98-107) 102 mmol/L (98-107) Carbon Dioxide Level 25 mmol/L (21-32) 26 mmol/L (21-32) Anion Gap 9 (6-14) 8 (6-14) Blood Urea Nitrogen 40 mg/dL (7-20) 41 mg/dL (7-20) Creatinine 0.8 mg/dL (0.6-1.0) 0.8 mg/dL (0.6-1.0) Estimated GFR (Cockcroft-Gault) 83.5 83.5 Glucose Level 122 mg/dL (70-99) 112 mg/dL (70-99) Calcium Level 9.7 mg/dL (8.5-10.1) 9.9 mg/dL (8.5-10.1) White Blood Count 5.8 x10^3/uL (4.0-11.0) Red Blood Count 3.66 x10^6/uL (3.50-5.40) Hemoglobin 11.0 g/dL (12.0-15.5) Hematocrit 33.1 % (36.0-47.0) Mean Corpuscular Volume 90 fL (79-100) Mean Corpuscular Hemoglobin 30 pg (25-35) Mean Corpuscular Hemoglobin Concent 33 g/dL (31-37) Red Cell Distribution Width 15.2 % (11.5-14.5) Platelet Count 231 x10^3/uL (140-400) Neutrophils (%) (Auto) 82 % (31-73) Lymphocytes (%) (Auto) 10 % (24-48) Monocytes (%) (Auto) 7 % (0-9) Eosinophils (%) (Auto) 1 % (0-3) Basophils (%) (Auto) 0 % (0-3) Neutrophils # (Auto) 4.8 x10^3/uL (1.8-7.7) Lymphocytes # (Auto) 0.6 x10^3/uL (1.0-4.8) Monocytes # (Auto) 0.4 x10^3/uL (0.0-1.1) Eosinophils # (Auto) 0.0 x10^3/uL (0.0-0.7) Basophils # (Auto) 0.0 x10^3/uL (0.0-0.2) Laboratory Tests Test 07/28/21 05:45 White Blood Count 5.8 x10^3/uL (4.0-11.0) Red Blood Count 3.66 x10^6/uL (3.50-5.40) Hemoglobin 11.0 g/dL (12.0-15.5) Hematocrit 33.1 % (36.0-47.0) Mean Corpuscular Volume 90 fL (79-100) Mean Corpuscular Hemoglobin 30 pg (25-35) Mean Corpuscular Hemoglobin Concent 33 g/dL (31-37) Red Cell Distribution Width 15.2 % (11.5-14.5) Platelet Count 231 x10^3/uL (140-400) Neutrophils (%) (Auto) 82 % (31-73) Lymphocytes (%) (Auto) 10 % (24-48) Monocytes (%) (Auto) 7 % (0-9) Eosinophils (%) (Auto) 1 % (0-3) Basophils (%) (Auto) 0 % (0-3) Neutrophils # (Auto) 4.8 x10^3/uL (1.8-7.7) Lymphocytes # (Auto) 0.6 x10^3/uL (1.0-4.8) Monocytes # (Auto) 0.4 x10^3/uL (0.0-1.1) Eosinophils # (Auto) 0.0 x10^3/uL (0.0-0.7) Basophils # (Auto) 0.0 x10^3/uL (0.0-0.2) Sodium Level 136 mmol/L (136-145) Potassium Level 4.1 mmol/L (3.5-5.1) Chloride Level 102 mmol/L (98-107) Carbon Dioxide Level 26 mmol/L (21-32) Anion Gap 8 (6-14) Blood Urea Nitrogen 41 mg/dL (7-20) Creatinine 0.8 mg/dL (0.6-1.0) Estimated GFR (Cockcroft-Gault) 83.5 Glucose Level 112 mg/dL (70-99) Calcium Level 9.9 mg/dL (8.5-10.1) Microbiology 07/22/21 Urine Culture - Final, Complete 07/22/21 Antimicrobic Susceptibility - Final, Complete 07/22/21 Blood Culture - Final, Complete NO GROWTH AFTER 5 DAYS Medications Current Medications Ringer's Solution 1,000 ml @ 100 mls/hr 1X ONCE IV Last administered on 07/22/21at 21:02; Start 07/22/21 at 18:45; Stop 07/23/21 at 04:44; Status DC Ringer's Solution 500 ml @ 500 mls/hr 1X ONCE IV Last administered on 07/22/21at 19:46; Start 07/22/21 at 18:45; Stop 07/22/21 at 19:44; Status DC Ondansetron HCl (Zofran) 4 mg PRN Q8HRS PRN IVP NAUSEA/VOMITING; Start 07/22/21 at 19:45; Stop 07/23/21 at 19:44; Status DC Sodium Chloride 1,000 ml @ 75 mls/hr [id number] IV Last administered on 07/23/21at 06:45; Start 07/22/21 at 19:45; Stop 07/25/21 at 01:45; Status DC Acetaminophen (Tylenol) 650 mg PRN Q4HRS PRN PO FEVER > 100.3'F; Start 07/22/21 at 19:45; Stop 07/23/21 at 19:44; Status DC Heparin Sodium (Porcine) (Heparin Sodium) 4,000 unit 1X ONCE IV ; Start 07/22/21 at 20:45; Stop 07/22/21 at 22:11; Status DC Heparin Sodium/ Dextrose 250 ml @ 8.7 mls/hr CONT PRN IV PER PROTOCOL; Start 07/22/21 at 20:45; Stop 07/22/21 at 22:11; Status DC Heparin Sodium (Porcine) (Heparin Sodium) 1,800 unit PRN Q6HRS PRN IV FOR UFH LEVEL LESS THAN 0.2; Start 07/22/21 at 20:45; Stop 07/22/21 at 22:11; Status DC Ceftriaxone Sodium (Rocephin) 1 gm QHS IVP Last administered on 07/23/21at 01:20; Start 07/23/21 at 01:30; Stop 07/23/21 at 09:20; Status DC Ceftriaxone Sodium (Rocephin) 1 gm Q24H IVP ; Start 07/23/21 at 05:30; Status UNV Ceftriaxone Sodium (Rocephin) 1 gm Q24H IVP ; Start 07/23/21 at 10:00; Stop 07/23/21 at 09:37; Status DC Atorvastatin Calcium (Lipitor) 80 mg QHS PO ; Start 07/23/21 at 21:00 Carvedilol (Coreg) 12.5 mg BIDWMEALS PO ; Start 07/23/21 at 17:00 Clonidine HCl (Catapres) 0.2 mg BID PO ; Start 07/23/21 at 21:00 Clopidogrel Bisulfate (Plavix) 75 mg DAILY PO Last administered on 07/23/21at 11:07; Start 07/23/21 at 10:00 Ferrous Sulfate (Feosol) 325 mg DAILY PO Last administered on 07/23/21at 11:07; Start 07/23/21 at 10:00 Memantine (Namenda) 10 mg BID PO Last administered on 07/23/21at 11:09; Start 07/23/21 at 10:00 Fluoxetine HCl (PROzac) 60 mg DAILY PO ; Start 07/24/21 at 09:00 Lisinopril (Prinivil) 2.5 mg DAILY PO Last administered on 07/23/21at 11:09; Start 07/23/21 at 10:00 Ceftriaxone Sodium (Rocephin) 1 gm Q24H IVP Last administered on 07/25/21at 08:32; Start 07/24/21 at 09:00; Stop 07/25/21 at 16:44; Status DC Amino Acids/ Electrolytes/ Dextrose 1,000 ml @ 80 mls/hr [id number] IV Last administered on 07/28/21at 08:28; Start 07/23/21 at 14:30 Hydralazine HCl (Apresoline Inj) 10 mg PRN Q4HRS PRN IVP ELEVATED BP, SEE COMMENTS Last administered on 07/24/21at 18:01; Start 07/23/21 at 14:30; Stop 07/24/21 at 18:54; Status DC Hydralazine HCl (Apresoline Inj) 10 mg PRN Q4HRS PRN IVP ELEVATED BP, SEE COMMENTS Last administered on 07/27/21at 16:10; Start 07/24/21 at 19:00 Heparin Sodium (Porcine) (Heparin Sodium) 5,000 unit Q12HR SQ Last administered on 07/28/21at 08:40; Start 07/24/21 at 21:00 Sodium Chloride 1,000 ml @ 100 mls/hr 1X ONCE IV ; Start 07/25/21 at 13:00; Stop 07/25/21 at 22:59; Status DC Cefepime HCl (Maxipime) 1 gm Q12HR IVP Last administered on 07/28/21at 08:30; Start 07/25/21 at 17:00; Stop 08/04/21 at 16:59 Potassium Chloride/Water 100 ml @ 100 mls/hr Q1H IV Last administered on 07/26/21at 18:36; Start 07/26/21 at 17:00; Stop 07/26/21 at 19:59; Status DC Active Scripts Active Atorvastatin Calcium 40 Mg Tablet 80 Mg PO QHS 90 Days Reported Fluoxetine Hcl 60 Mg Tablet 60 Mg PO DAILY Olanzapine 10 Mg Tablet 10 Mg PO HS Namenda (Memantine Hcl) 10 Mg Tablet 10 Mg PO BID Remeron (Mirtazapine) 30 Mg Tablet 30 Mg PO DAILY Lisinopril 2.5 Mg Tablet 2.5 Mg PO DAILY Oxybutynin Chloride Er (Oxybutynin Chloride) 10 Mg Tab.er.24 10 Mg PO DAILY Metformin Hcl 500 Mg Tablet 500 Mg PO BIDWMEALS Ferrous Sulfate 325 Mg Tablet 1 Tab PO DAILY 1 Days Clopidogrel (Clopidogrel Bisulfate) 75 Mg Tablet 1 Tab PO DAILY Clonidine Hcl 0.2 Mg Tablet 0.2 Mg PO BID Carvedilol (Carvedilol) 12.5 Mg Tablet 12.5 Mg PO BIDWMEALS Vitals/I & O Vital Sign - Last 24 Hours 07/27/21 07/27/21 07/27/21 07/27/21 11:00 15:00 16:10 19:20 Temp 98.0 98.1 98.0 98.1 Pulse 98 95 94 Resp 16 12 B/P (MAP) 169/89 (115) 166/85 (112) 166/85 Pulse Ox 100 100 O2 Delivery Room Air Nasal Cannula Room Air 07/27/21 07/27/21 07/27/21 07/28/21 19:28 20:30 23:00 03:00 Temp 98.5 98.0 98.3 98.3 98.5 98.0 98.3 98.3 Pulse 107 105 101 105 Resp 14 16 18 18 B/P (MAP) 161/85 (110) 54/84 (74) 175/84 (114) 154/82 (106) Pulse Ox 99 97 97 97 O2 Delivery Room Air 07/28/21 07:00 Temp 98.6 98.6 Pulse 103 Resp 16 B/P (MAP) 165/87 (113) Pulse Ox 97 O2 Delivery Room Air Intake and Output 07/27/21 07/27/21 07/28/21 14:59 22:59 06:59 Intake Total 0 ml 0 ml 0 ml Balance 0 ml 0 ml 0 ml Nutrition Consultation Dietary Evaluation: Recommendations by RD: Dietary education by RD, PPN/TPN Comments: NPO PPN @ 80 ml/hr 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
[2021-07-28 11:00] VITALS: BP 179/98
[2021-07-28 15:00] VITALS: BP 169/88
--- NOTE | 2021-07-28 15:16 | NUR ---
SS following up with discharge planning. SS reviewed pt chart and discussed with pt RN. Pt is LTC resident from [place], ; fax [phone]. Pt is currently on room air. COVID19 negative. Pt on IV Cefepime. NPO and on Clinimix. GI consulted for possible PEG placement. SS will continue to follow for discharge planning.
[2021-07-28] MEDS: hydrALAZINE 20 MG/ML VIAL. IVP PRN (16:14)
[2021-07-28 19:00] VITALS: BP 143/73
[2021-07-28] MEDS: ATORVASTATIN CALCIUM 40 MG TABLET. PO SCH (22:03)
[2021-07-28 23:23] VITALS: BP 142/70
[2021-07-29 03:00] VITALS: BP 169/78
[2021-07-29 07:00] VITALS: BP 177/96
[2021-07-29] MEDS: CARVEDILOL 12.5 MG TABLET. PO SCH ×2 (08:00→17:00)
[2021-07-29] MEDS: FLUoxetine HCL 20 MG CAPSULE PO SCH (09:00)
[2021-07-29] MEDS: MEMANTINE 10 MG TABLET. PO SCH ×2 (09:00→19:53)
[2021-07-29] MEDS: cloNIDine HCL 0.2 MG TABLET PO SCH ×2 (09:00→19:53)
[2021-07-29] MEDS: LISINOPRIL 5 MG TABLET. PO SCH (09:00)
[2021-07-29] MEDS: FERROUS SULFATE 325 MG TABLET. PO SCH (09:00)
[2021-07-29] MEDS: CLOPIDOGREL BISULFATE 75 MG TABLET PO SCH (09:00)
[2021-07-29] MEDS: CEFEPIME HCL IV Push 1 GM VIAL. IVP SCH ×2 (10:34→19:55)
[2021-07-29] MEDS: HEPARIN for SUB-Q USE 5,000 UNIT/ML VIAL. SQ SCH ×2 (10:48→19:57)
[2021-07-29] MEDS: hydrALAZINE 20 MG/ML VIAL. IVP PRN (10:53)
[2021-07-29 11:00] VITALS: BP 182/102
[2021-07-29 11:52] LABS: BASO % 0 % (0-3); EOS % 0 % (0-3); HEMATOCRIT 34.2 % (36.0-47.0); HEMOGLOBIN 11.4 g/dL (12.0-15.5); LYMPH # 0.5 x10^3/uL (1.0-4.8); LYMPH % 8 % (24-48); MEAN CORPUSCULAR HEMOGLOBIN 30 pg (25-35); MEAN CORPUSCULAR HGB CONC 33 g/dL (31-37); MEAN CORPUSCULAR VOLUME 91 fL (79-100); MONO # 0.4 x10^3/uL (0.0-1.1); MONO % 6 % (0-9); NEUT # 5.9 x10^3/uL (1.8-7.7); NEUT % 86 % (31-73); PLATELET COUNT 221 x10^3/uL (140-400); RED BLOOD COUNT 3.78 x10^6/uL (3.50-5.40); WHITE BLOOD COUNT 6.9 x10^3/uL (4.0-11.0)
--- NOTE | 2021-07-29 12:01 | PDOC ---
PROGRESS NOTES Date of Service: DATE: 07/29/21 TIME: 12:00 Chief Complaint Chief Complaint AMS Acute cystitis Dehydration Dysphagia History of Present Illness History of Present Illness HPI: This patient is an 81-year-old woman who is well known to me from many years of outpatient primary care work together until about a year ago after her , her dementia worsened and she needed to be move to [facility]. I have not seen her since that time. She has markedly declined and has lost at least 50 pounds or more and is completely disengaged and did not recognize me on my evaluation this morning. The patient was sent in with altered mental status, was found to have a urinary tract infection. Final culture results are pending and blood cultures have been sent. It looks like the patient has also been refusing to eat and drink there and is also quite dehydrated. The patient appeared comfortable on my assessment this morning. There is no other report from the [facility] of new symptoms including no cough, congestion, pain anywhere, falls, or any other new specific constitutional symptoms. All other systems reviewed and negative. 07/24/2021: Patient seen and evaluated. No acute vents overnight, low-grade fever this morning (T-max 100.1 F). She is a long-term resident at [place]. Currently n.p.o. due to dysphagia; ST following. Continue treatment of acute cystitis with Rocephin 1 g daily. Continue to follow urine culture. 07/25/2021: Patient seen and evaluated bedside. Afebrile overnight. Resting comfortably in bed. Not answering many questions. Still norma n.p.o. We will continue treatment UTI with Rocephin 1 g daily for total of 3 days. Urine culture grew E. coli and Pseudomonas; susceptibilities pending. Will provide IV normal fluids. 07/26/2021: Patient seen and evaluated. Much more alert today. Changed her antibiotic from Rocephin to cefepime yesterday for Pseudomonas coverage. However urine culture grew Pseudomonas and E. coli, pansensitive cephalosporins. Day 3 of IV antibiotics with Rocephin/cefepime, so her antibiotic regimen for simple cystitis will be finished tomorrow. Spoke with ST, patient's still failing swallow evaluation; remains n.p.o. Continue with TPN. Placed consultation to nutrition and GI for possible PEG tube placement. 07/27/2021: Patient seen and examined. She is awake and in no acute distress. Patient completed her regimen of rocephin/cefepime today. Consulted with GI regarding PEG tube placement. She is on IV clinimix. Speech therapy will be re- evaluating her swallowing tomorrow 07/28. Discussed with RN. Chart reviewed. 07/28/2021 81 y/o female who is non-verbal, w/ UTI. H/o CVA, hemiparesis,dysphagia previously / failing swallow evals. s/p cva, comfort recommended without improved survival with EPG. markedly declined and has lost at least 50 pounds / disengaged seen and examined awake and in no acute distress. regimen of rocephin/cefepime Consulted with GI regarding PEG tube placement. on IV clinimix. Speech therapy will be re-evaluating her swallowing 07/28. Discussed with RN. Chart reviewed. 07/29/2021 81 y/o female who is non-verbal, w/ UTI. H/o CVA, hemiparesis,dysphagia previously / failing swallow evals. s/p cva, comfort recommended without improved survival with EPG. markedly declined and has lost at least 50 pounds / disengaged seen and examined awake and in no acute distress. regimen of rocephin/cefepime Consulted with GI regarding PEG tube placement. on IV clinimix. Speech therapy will be re-evaluating her swallowing 07/28. Discussed with RN. Chart reviewed. Vitals Vitals Vital Signs Date Time Temp Pulse Resp B/P (MAP) Pulse Ox O2 Delivery O2 Flow Rate FiO2 07/29/21 10:53 108 177/96 07/29/21 07:00 98.4 20 98 Room Air 98.4 Physical Exam General: Alert, Cooperative, No acute distress Heart: Regular rate, Normal S1 Lungs: Clear Abdomen: Soft, No tenderness Extremities: No clubbing, No cyanosis Skin: No rashes, No breakdown Labs LABS Laboratory Tests Test 07/29/21 11:20 White Blood Count 6.9 x10^3/uL (4.0-11.0) Red Blood Count 3.78 x10^6/uL (3.50-5.40) Hemoglobin 11.4 g/dL (12.0-15.5) Hematocrit 34.2 % (36.0-47.0) Mean Corpuscular Volume 91 fL (79-100) Mean Corpuscular Hemoglobin 30 pg (25-35) Mean Corpuscular Hemoglobin Concent 33 g/dL (31-37) Red Cell Distribution Width 15.0 % (11.5-14.5) Platelet Count 221 x10^3/uL (140-400) Neutrophils (%) (Auto) 86 % (31-73) Lymphocytes (%) (Auto) 8 % (24-48) Monocytes (%) (Auto) 6 % (0-9) Eosinophils (%) (Auto) 0 % (0-3) Basophils (%) (Auto) 0 % (0-3) Neutrophils # (Auto) 5.9 x10^3/uL (1.8-7.7) Lymphocytes # (Auto) 0.5 x10^3/uL (1.0-4.8) Monocytes # (Auto) 0.4 x10^3/uL (0.0-1.1) Eosinophils # (Auto) 0.0 x10^3/uL (0.0-0.7) Basophils # (Auto) 0.0 x10^3/uL (0.0-0.2) Assessment and Plan Assessmemt and Plan Problems Medical Problems: (1) AMS (altered mental status) Status: Acute (2) UTI (urinary tract infection) Status: Acute Comment Review of Relevant I have reviewed the following items shakeel (where applicable) has been applied. Labs Laboratory Tests Test 07/28/21 05:45 07/29/21 11:20 White Blood Count 5.8 x10^3/uL (4.0-11.0) 6.9 x10^3/uL (4.0-11.0) Red Blood Count 3.66 x10^6/uL (3.50-5.40) 3.78 x10^6/uL (3.50-5.40) Hemoglobin 11.0 g/dL (12.0-15.5) 11.4 g/dL (12.0-15.5) Hematocrit 33.1 % (36.0-47.0) 34.2 % (36.0-47.0) Mean Corpuscular Volume 90 fL (79-100) 91 fL (79-100) Mean Corpuscular Hemoglobin 30 pg (25-35) 30 pg (25-35) Mean Corpuscular Hemoglobin Concent 33 g/dL (31-37) 33 g/dL (31-37) Red Cell Distribution Width 15.2 % (11.5-14.5) 15.0 % (11.5-14.5) Platelet Count 231 x10^3/uL (140-400) 221 x10^3/uL (140-400) Neutrophils (%) (Auto) 82 % (31-73) 86 % (31-73) Lymphocytes (%) (Auto) 10 % (24-48) 8 % (24-48) Monocytes (%) (Auto) 7 % (0-9) 6 % (0-9) Eosinophils (%) (Auto) 1 % (0-3) 0 % (0-3) Basophils (%) (Auto) 0 % (0-3) 0 % (0-3) Neutrophils # (Auto) 4.8 x10^3/uL (1.8-7.7) 5.9 x10^3/uL (1.8-7.7) Lymphocytes # (Auto) 0.6 x10^3/uL (1.0-4.8) 0.5 x10^3/uL (1.0-4.8) Monocytes # (Auto) 0.4 x10^3/uL (0.0-1.1) 0.4 x10^3/uL (0.0-1.1) Eosinophils # (Auto) 0.0 x10^3/uL (0.0-0.7) 0.0 x10^3/uL (0.0-0.7) Basophils # (Auto) 0.0 x10^3/uL (0.0-0.2) 0.0 x10^3/uL (0.0-0.2) Sodium Level 136 mmol/L (136-145) Potassium Level 4.1 mmol/L (3.5-5.1) Chloride Level 102 mmol/L (98-107) Carbon Dioxide Level 26 mmol/L (21-32) Anion Gap 8 (6-14) Blood Urea Nitrogen 41 mg/dL (7-20) Creatinine 0.8 mg/dL (0.6-1.0) Estimated GFR (Cockcroft-Gault) 83.5 Glucose Level 112 mg/dL (70-99) Calcium Level 9.9 mg/dL (8.5-10.1) Laboratory Tests Test 07/29/21 11:20 White Blood Count 6.9 x10^3/uL (4.0-11.0) Red Blood Count 3.78 x10^6/uL (3.50-5.40) Hemoglobin 11.4 g/dL (12.0-15.5) Hematocrit 34.2 % (36.0-47.0) Mean Corpuscular Volume 91 fL (79-100) Mean Corpuscular Hemoglobin 30 pg (25-35) Mean Corpuscular Hemoglobin Concent 33 g/dL (31-37) Red Cell Distribution Width 15.0 % (11.5-14.5) Platelet Count 221 x10^3/uL (140-400) Neutrophils (%) (Auto) 86 % (31-73) Lymphocytes (%) (Auto) 8 % (24-48) Monocytes (%) (Auto) 6 % (0-9) Eosinophils (%) (Auto) 0 % (0-3) Basophils (%) (Auto) 0 % (0-3) Neutrophils # (Auto) 5.9 x10^3/uL (1.8-7.7) Lymphocytes # (Auto) 0.5 x10^3/uL (1.0-4.8) Monocytes # (Auto) 0.4 x10^3/uL (0.0-1.1) Eosinophils # (Auto) 0.0 x10^3/uL (0.0-0.7) Basophils # (Auto) 0.0 x10^3/uL (0.0-0.2) Microbiology 07/22/21 Urine Culture - Final, Complete 07/22/21 Antimicrobic Susceptibility - Final, Complete 07/22/21 Blood Culture - Final, Complete NO GROWTH AFTER 5 DAYS Medications Current Medications Ringer's Solution 1,000 ml @ 100 mls/hr 1X ONCE IV Last administered on 07/22/21at 21:02; Start 07/22/21 at 18:45; Stop 07/23/21 at 04:44; Status DC Ringer's Solution 500 ml @ 500 mls/hr 1X ONCE IV Last administered on 07/22/21at 19:46; Start 07/22/21 at 18:45; Stop 07/22/21 at 19:44; Status DC Ondansetron HCl (Zofran) 4 mg PRN Q8HRS PRN IVP NAUSEA/VOMITING; Start 07/22/21 at 19:45; Stop 07/23/21 at 19:44; Status DC Sodium Chloride 1,000 ml @ 75 mls/hr [id number] IV Last administered on 07/23/21at 06:45; Start 07/22/21 at 19:45; Stop 07/25/21 at 01:45; Status DC Acetaminophen (Tylenol) 650 mg PRN Q4HRS PRN PO FEVER > 100.3'F; Start 07/22/21 at 19:45; Stop 07/23/21 at 19:44; Status DC Heparin Sodium (Porcine) (Heparin Sodium) 4,000 unit 1X ONCE IV ; Start 07/22/21 at 20:45; Stop 07/22/21 at 22:11; Status DC Heparin Sodium/ Dextrose 250 ml @ 8.7 mls/hr CONT PRN IV PER PROTOCOL; Start 07/22/21 at 20:45; Stop 07/22/21 at 22:11; Status DC Heparin Sodium (Porcine) (Heparin Sodium) 1,800 unit PRN Q6HRS PRN IV FOR UFH LEVEL LESS THAN 0.2; Start 07/22/21 at 20:45; Stop 07/22/21 at 22:11; Status DC Ceftriaxone Sodium (Rocephin) 1 gm QHS IVP Last administered on 07/23/21at 01:20; Start 07/23/21 at 01:30; Stop 07/23/21 at 09:20; Status DC Ceftriaxone Sodium (Rocephin) 1 gm Q24H IVP ; Start 07/23/21 at 05:30; Status UNV Ceftriaxone Sodium (Rocephin) 1 gm Q24H IVP ; Start 07/23/21 at 10:00; Stop 07/23/21 at 09:37; Status DC Atorvastatin Calcium (Lipitor) 80 mg QHS PO ; Start 07/23/21 at 21:00 Carvedilol (Coreg) 12.5 mg BIDWMEALS PO ; Start 07/23/21 at 17:00 Clonidine HCl (Catapres) 0.2 mg BID PO ; Start 07/23/21 at 21:00 Clopidogrel Bisulfate (Plavix) 75 mg DAILY PO Last administered on 07/23/21 11:07; Start 07/23/21 at 10:00 Ferrous Sulfate (Feosol) 325 mg DAILY PO Last administered on 07/23/21 11:07; Start 07/23/21 at 10:00 Memantine (Namenda) 10 mg BID PO Last administered on 07/23/21at 11:09; Start 07/23/21 at 10:00 Fluoxetine HCl (PROzac) 60 mg DAILY PO ; Start 07/24/21 at 09:00 Lisinopril (Prinivil) 2.5 mg DAILY PO Last administered on 07/23/21 11:09; Start 07/23/21 at 10:00 Ceftriaxone Sodium (Rocephin) 1 gm Q24H IVP Last administered on 07/25/21 08:32; Start 07/24/21 at 09:00; Stop 07/25/21 at 16:44; Status DC Amino Acids/ Electrolytes/ Dextrose 1,000 ml @ 80 mls/hr [id number] IV Last administered on 07/28/21at 22:09; Start 07/23/21 at 14:30 Hydralazine HCl (Apresoline Inj) 10 mg PRN Q4HRS PRN IVP ELEVATED BP, SEE COMMENTS Last administered on 07/24/21at 18:01; Start 07/23/21 at 14:30; Stop 07/24/21 at 18:54; Status DC Hydralazine HCl (Apresoline Inj) 10 mg PRN Q4HRS PRN IVP ELEVATED BP, SEE COMMENTS Last administered on 07/29/21at 10:53; Start 07/24/21 at 19:00 Heparin Sodium (Porcine) (Heparin Sodium) 5,000 unit Q12HR SQ Last administered on 07/29/21 10:48; Start 07/24/21 at 21:00 Sodium Chloride 1,000 ml @ 100 mls/hr 1X ONCE IV ; Start 07/25/21 at 13:00; Stop 07/25/21 at 22:59; Status DC Cefepime HCl (Maxipime) 1 gm Q12HR IVP Last administered on 07/29/21at 10:34; Start 07/25/21 at 17:00; Stop 08/04/21 at 16:59 Potassium Chloride/Water 100 ml @ 100 mls/hr Q1H IV Last administered on 07/26/21at 18:36; Start 07/26/21 at 17:00; Stop 07/26/21 at 19:59; Status DC Active Scripts Active Atorvastatin Calcium 40 Mg Tablet 80 Mg PO QHS 90 Days Reported Fluoxetine Hcl 60 Mg Tablet 60 Mg PO DAILY Olanzapine 10 Mg Tablet 10 Mg PO HS Namenda (Memantine Hcl) 10 Mg Tablet 10 Mg PO BID Remeron (Mirtazapine) 30 Mg Tablet 30 Mg PO DAILY Lisinopril 2.5 Mg Tablet 2.5 Mg PO DAILY Oxybutynin Chloride Er (Oxybutynin Chloride) 10 Mg Tab.er.24 10 Mg PO DAILY Metformin Hcl 500 Mg Tablet 500 Mg PO BIDWMEALS Ferrous Sulfate 325 Mg Tablet 1 Tab PO DAILY 1 Days Clopidogrel (Clopidogrel Bisulfate) 75 Mg Tablet 1 Tab PO DAILY Clonidine Hcl 0.2 Mg Tablet 0.2 Mg PO BID Carvedilol (Carvedilol) 12.5 Mg Tablet 12.5 Mg PO BIDWMEALS Vitals/I & O Vital Sign - Last 24 Hours 07/28/21 07/28/21 07/28/21 07/28/21 15:00 16:14 19:00 22:00 Temp 98.5 98.2 98.5 98.2 Pulse 99 99 89 Resp 16 18 B/P (MAP) 169/88 (115) 169/88 143/73 (96) Pulse Ox 98 97 O2 Delivery Room Air Room Air Room Air 07/28/21 07/29/21 07/29/21 07/29/21 23:23 03:00 07:00 08:00 Temp 98.6 98.4 98.4 98.6 98.4 98.4 Pulse 107 108 108 108 Resp 16 16 20 B/P (MAP) 142/70 (94) 169/78 (108) 177/96 (123) 177/96 Pulse Ox 95 95 98 O2 Delivery Room Air Room Air Room Air 07/29/21 07/29/21 07/29/21 09:00 09:00 10:53 Pulse 108 108 108 B/P (MAP) 177/96 177/96 177/96 Intake and Output 07/28/21 07/28/21 07/29/21 15:00 23:00 07:00 Intake Total 0 ml 0 ml 0 ml Balance 0 ml 0 ml 0 ml Nutrition Consultation Dietary Evaluation: Recommendations by RD: Dietary education by RD, PPN/TPN Comments: NPO PPN @ 80 ml/hr REC diet per LEATHER CUTTER with oral nutrition supplements Expected Outcomes/Goals: monitor diet advancement/need for nutrition support Interpretation of weight loss: >10% in 6 months Malnutrition Findings: Body Fat Depletion (Non Severe: Mild Depletion Weight Status: Appropriate Justicifation of Admission Dx: Justifications for Admission: Justification of Admission Dx: N/A BRITTANY YATES MD Jul 29, 2021 12:01
[2021-07-29 12:06] LABS: ALBUMIN 2.3 g/dL (3.4-5.0); CALCIUM 9.9 mg/dL (8.5-10.1); CREATININE 0.9 mg/dL (0.6-1.0); GFR 72.9; PHOSPHORUS 3.1 mg/dL (2.6-4.7)
[2021-07-29] MEDS: AA 4.25 %/CALCIUM/LYTES/D5W 1,000 ML IV SCH ×2 (14:25→19:55)
[2021-07-29 15:00] VITALS: BP 145/82
[2021-07-29] MEDS: ONDANSETRON PF 4 MG/2 ML VIAL. IVP PRN (15:02)
[2021-07-29 19:36] VITALS: BP 159/84
[2021-07-29] MEDS: ATORVASTATIN CALCIUM 40 MG TABLET. PO SCH (19:53)
[2021-07-29 23:46] VITALS: BP 164/88
[2021-07-30] VITALS (7 sets, daily range): BP systolic 132–174; BP diastolic 65–95
[2021-07-30] MEDS: CARVEDILOL 12.5 MG TABLET. PO SCH ×2 (07:39→17:00)
[2021-07-30] MEDS: LISINOPRIL 5 MG TABLET. PO SCH (07:40)
[2021-07-30] MEDS: FERROUS SULFATE 325 MG TABLET. PO SCH (07:40)
[2021-07-30] MEDS: FLUoxetine HCL 20 MG CAPSULE PO SCH (07:40)
[2021-07-30] MEDS: MEMANTINE 10 MG TABLET. PO SCH ×2 (07:40→19:44)
[2021-07-30] MEDS: CLOPIDOGREL BISULFATE 75 MG TABLET PO SCH (07:40)
[2021-07-30] MEDS: CEFEPIME HCL IV Push 1 GM VIAL. IVP SCH ×2 (08:30→20:18)
[2021-07-30] MEDS: AA 4.25 %/CALCIUM/LYTES/D5W 1,000 ML IV SCH ×2 (08:30→20:18)
[2021-07-30] MEDS: HEPARIN for SUB-Q USE 5,000 UNIT/ML VIAL. SQ SCH ×2 (08:38→20:20)
[2021-07-30 08:58] LABS: BASO % 1 % (0-3); EOS # 0.1 x10^3/uL (0.0-0.7); EOS % 1 % (0-3); HEMATOCRIT 31.7 % (36.0-47.0); HEMOGLOBIN 10.6 g/dL (12.0-15.5); LYMPH # 0.6 x10^3/uL (1.0-4.8); LYMPH % 11 % (24-48); MEAN CORPUSCULAR HEMOGLOBIN 30 pg (25-35); MEAN CORPUSCULAR HGB CONC 33 g/dL (31-37); MEAN CORPUSCULAR VOLUME 90 fL (79-100); MONO # 0.3 x10^3/uL (0.0-1.1); MONO % 6 % (0-9); NEUT # 4.4 x10^3/uL (1.8-7.7); NEUT % 82 % (31-73); PLATELET COUNT 199 x10^3/uL (140-400); RED BLOOD COUNT 3.52 x10^6/uL (3.50-5.40); RED CELL DISTRIBUTION WIDTH 14.9 % (11.5-14.5); WHITE BLOOD COUNT 5.4 x10^3/uL (4.0-11.0)
[2021-07-30] MEDS: cloNIDine HCL 0.2 MG TABLET PO SCH ×2 (09:00→19:43)
[2021-07-30 09:35] LABS: CREATININE 0.9 mg/dL (0.6-1.0); GFR 72.9; POTASSIUM 4.4 mmol/L (3.5-5.1)
--- NOTE | 2021-07-30 11:06 | PDOC ---
PROGRESS NOTES Date of Service: DATE: 07/30/21 TIME: 11:06 Chief Complaint Chief Complaint AMS Acute cystitis Dehydration Dysphagia History of Present Illness History of Present Illness HPI: This patient is an 81-year-old woman who is well known to me from many years of outpatient primary care work together until about a year ago after her , her dementia worsened and she needed to be move to [facility]. I have not seen her since that time. She has markedly declined and has lost at least 50 pounds or more and is completely disengaged and did not recognize me on my evaluation this morning. The patient was sent in with altered mental status, was found to have a urinary tract infection. Final culture results are pending and blood cultures have been sent. It looks like the patient has also been refusing to eat and drink there and is also quite dehydrated. The patient appeared comfortable on my assessment this morning. There is no other report from the [facility] of new symptoms including no cough, congestion, pain anywhere, falls, or any other new specific constitutional symptoms. All other systems reviewed and negative. 07/24/2021: Patient seen and evaluated. No acute vents overnight, low-grade fever this morning (T-max 100.1 F). She is a long-term resident at [place]. Currently n.p.o. due to dysphagia; ST following. Continue treatment of acute cystitis with Rocephin 1 g daily. Continue to follow urine culture. 07/25/2021: Patient seen and evaluated bedside. Afebrile overnight. Resting comfortably in bed. Not answering many questions. Still norma n.p.o. We will continue treatment UTI with Rocephin 1 g daily for total of 3 days. Urine culture grew E. coli and Pseudomonas; susceptibilities pending. Will provide IV normal fluids. 07/26/2021: Patient seen and evaluated. Much more alert today. Changed her antibiotic from Rocephin to cefepime yesterday for Pseudomonas coverage. However urine culture grew Pseudomonas and E. coli, pansensitive cephalosporins. Day 3 of IV antibiotics with Rocephin/cefepime, so her antibiotic regimen for simple cystitis will be finished tomorrow. Spoke with ST, patient's still failing swallow evaluation; remains n.p.o. Continue with TPN. Placed consultation to nutrition and GI for possible PEG tube placement. 07/27/2021: Patient seen and examined. She is awake and in no acute distress. Patient completed her regimen of rocephin/cefepime today. Consulted with GI regarding PEG tube placement. She is on IV clinimix. Speech therapy will be re- evaluating her swallowing tomorrow 07/28. Discussed with RN. Chart reviewed. 07/28/2021 81 y/o female who is non-verbal, w/ UTI. H/o CVA, hemiparesis,dysphagia previously / failing swallow evals. s/p cva, comfort recommended without improved survival with EPG. markedly declined and has lost at least 50 pounds / disengaged seen and examined awake and in no acute distress. regimen of rocephin/cefepime Consulted with GI regarding PEG tube placement. on IV clinimix. Speech therapy will be re-evaluating her swallowing 07/28. Discussed with RN. Chart reviewed. 07/29/2021 81 y/o female who is non-verbal, w/ UTI. H/o CVA, hemiparesis,dysphagia previously / failing swallow evals. s/p cva, comfort recommended without improved survival with EPG. markedly declined and has lost at least 50 pounds / disengaged seen and examined awake and in no acute distress. regimen of rocephin/cefepime Consulted with GI regarding PEG tube placement. on IV clinimix. Speech therapy will be re-evaluating her swallowing 07/28. Discussed with RN. Chart reviewed. 07/30/2021 81 y/o female non-verbal, w/ UTI. H/o CVA, hemiparesis,dysphagia previously / failing swallow evals. s/p cva, comfort recommended without improved survival with EPG. markedly declined and has lost at least 50 pounds / disengaged seen and examined awake and in no acute distress. regimen of rocephin/cefepime Consulted with GI regarding PEG tube placement. on IV clinimix. Speech therapy will be re-evaluating her swallowing 07/28. Discussed with RN. Chart reviewed. Vitals Vitals Vital Signs Date Time Temp Pulse Resp B/P (MAP) Pulse Ox O2 Delivery O2 Flow Rate FiO2 07/30/21 07:00 98.0 100 18 162/92 (115) 96 Room Air 98.0 Physical Exam General: Alert, Cooperative, No acute distress Heart: Regular rate, Normal S1 Lungs: Clear Abdomen: Normal bowel sounds, Soft, No tenderness Extremities: No clubbing, No cyanosis Skin: No rashes, No breakdown Labs LABS Laboratory Tests Test 07/29/21 11:20 07/30/21 08:40 07/30/21 08:42 White Blood Count 6.9 x10^3/uL (4.0-11.0) 5.4 x10^3/uL (4.0-11.0) Red Blood Count 3.78 x10^6/uL (3.50-5.40) 3.52 x10^6/uL (3.50-5.40) Hemoglobin 11.4 g/dL (12.0-15.5) 10.6 g/dL (12.0-15.5) Hematocrit 34.2 % (36.0-47.0) 31.7 % (36.0-47.0) Mean Corpuscular Volume 91 fL (79-100) 90 fL (79-100) Mean Corpuscular Hemoglobin 30 pg (25-35) 30 pg (25-35) Mean Corpuscular Hemoglobin Concent 33 g/dL (31-37) 33 g/dL (31-37) Red Cell Distribution Width 15.0 % (11.5-14.5) 14.9 % (11.5-14.5) Platelet Count 221 x10^3/uL (140-400) 199 x10^3/uL (140-400) Neutrophils (%) (Auto) 86 % (31-73) 82 % (31-73) Lymphocytes (%) (Auto) 8 % (24-48) 11 % (24-48) Monocytes (%) (Auto) 6 % (0-9) 6 % (0-9) Eosinophils (%) (Auto) 0 % (0-3) 1 % (0-3) Basophils (%) (Auto) 0 % (0-3) 1 % (0-3) Neutrophils # (Auto) 5.9 x10^3/uL (1.8-7.7) 4.4 x10^3/uL (1.8-7.7) Lymphocytes # (Auto) 0.5 x10^3/uL (1.0-4.8) 0.6 x10^3/uL (1.0-4.8) Monocytes # (Auto) 0.4 x10^3/uL (0.0-1.1) 0.3 x10^3/uL (0.0-1.1) Eosinophils # (Auto) 0.0 x10^3/uL (0.0-0.7) 0.1 x10^3/uL (0.0-0.7) Basophils # (Auto) 0.0 x10^3/uL (0.0-0.2) 0.0 x10^3/uL (0.0-0.2) Sodium Level 135 mmol/L (136-145) 135 mmol/L (136-145) Potassium Level 4.0 mmol/L (3.5-5.1) 4.4 mmol/L (3.5-5.1) Chloride Level 101 mmol/L (98-107) 101 mmol/L (98-107) Carbon Dioxide Level 26 mmol/L (21-32) 27 mmol/L (21-32) Anion Gap 8 (6-14) 7 (6-14) Blood Urea Nitrogen 40 mg/dL (7-20) 41 mg/dL (7-20) Creatinine 0.9 mg/dL (0.6-1.0) 0.9 mg/dL (0.6-1.0) Estimated GFR (Cockcroft-Gault) 72.9 72.9 Glucose Level 119 mg/dL (70-99) 120 mg/dL (70-99) Calcium Level 9.9 mg/dL (8.5-10.1) 10.0 mg/dL (8.5-10.1) Phosphorus Level 3.1 mg/dL (2.6-4.7) Albumin 2.3 g/dL (3.4-5.0) Assessment and Plan Assessmemt and Plan Problems Medical Problems: (1) AMS (altered mental status) Status: Acute (2) UTI (urinary tract infection) Status: Acute Comment Review of Relevant I have reviewed the following items shakeel (where applicable) has been applied. Labs Laboratory Tests Test 07/29/21 11:20 07/30/21 08:40 07/30/21 08:42 White Blood Count 6.9 x10^3/uL (4.0-11.0) 5.4 x10^3/uL (4.0-11.0) Red Blood Count 3.78 x10^6/uL (3.50-5.40) 3.52 x10^6/uL (3.50-5.40) Hemoglobin 11.4 g/dL (12.0-15.5) 10.6 g/dL (12.0-15.5) Hematocrit 34.2 % (36.0-47.0) 31.7 % (36.0-47.0) Mean Corpuscular Volume 91 fL (79-100) 90 fL (79-100) Mean Corpuscular Hemoglobin 30 pg (25-35) 30 pg (25-35) Mean Corpuscular Hemoglobin Concent 33 g/dL (31-37) 33 g/dL (31-37) Red Cell Distribution Width 15.0 % (11.5-14.5) 14.9 % (11.5-14.5) Platelet Count 221 x10^3/uL (140-400) 199 x10^3/uL (140-400) Neutrophils (%) (Auto) 86 % (31-73) 82 % (31-73) Lymphocytes (%) (Auto) 8 % (24-48) 11 % (24-48) Monocytes (%) (Auto) 6 % (0-9) 6 % (0-9) Eosinophils (%) (Auto) 0 % (0-3) 1 % (0-3) Basophils (%) (Auto) 0 % (0-3) 1 % (0-3) Neutrophils # (Auto) 5.9 x10^3/uL (1.8-7.7) 4.4 x10^3/uL (1.8-7.7) Lymphocytes # (Auto) 0.5 x10^3/uL (1.0-4.8) 0.6 x10^3/uL (1.0-4.8) Monocytes # (Auto) 0.4 x10^3/uL (0.0-1.1) 0.3 x10^3/uL (0.0-1.1) Eosinophils # (Auto) 0.0 x10^3/uL (0.0-0.7) 0.1 x10^3/uL (0.0-0.7) Basophils # (Auto) 0.0 x10^3/uL (0.0-0.2) 0.0 x10^3/uL (0.0-0.2) Sodium Level 135 mmol/L (136-145) 135 mmol/L (136-145) Potassium Level 4.0 mmol/L (3.5-5.1) 4.4 mmol/L (3.5-5.1) Chloride Level 101 mmol/L (98-107) 101 mmol/L (98-107) Carbon Dioxide Level 26 mmol/L (21-32) 27 mmol/L (21-32) Anion Gap 8 (6-14) 7 (6-14) Blood Urea Nitrogen 40 mg/dL (7-20) 41 mg/dL (7-20) Creatinine 0.9 mg/dL (0.6-1.0) 0.9 mg/dL (0.6-1.0) Estimated GFR (Cockcroft-Gault) 72.9 72.9 Glucose Level 119 mg/dL (70-99) 120 mg/dL (70-99) Calcium Level 9.9 mg/dL (8.5-10.1) 10.0 mg/dL (8.5-10.1) Phosphorus Level 3.1 mg/dL (2.6-4.7) Albumin 2.3 g/dL (3.4-5.0) Laboratory Tests Test 07/29/21 11:20 07/30/21 08:40 07/30/21 08:42 White Blood Count 6.9 x10^3/uL (4.0-11.0) 5.4 x10^3/uL (4.0-11.0) Red Blood Count 3.78 x10^6/uL (3.50-5.40) 3.52 x10^6/uL (3.50-5.40) Hemoglobin 11.4 g/dL (12.0-15.5) 10.6 g/dL (12.0-15.5) Hematocrit 34.2 % (36.0-47.0) 31.7 % (36.0-47.0) Mean Corpuscular Volume 91 fL (79-100) 90 fL (79-100) Mean Corpuscular Hemoglobin 30 pg (25-35) 30 pg (25-35) Mean Corpuscular Hemoglobin Concent 33 g/dL (31-37) 33 g/dL (31-37) Red Cell Distribution Width 15.0 % (11.5-14.5) 14.9 % (11.5-14.5) Platelet Count 221 x10^3/uL (140-400) 199 x10^3/uL (140-400) Neutrophils (%) (Auto) 86 % (31-73) 82 % (31-73) Lymphocytes (%) (Auto) 8 % (24-48) 11 % (24-48) Monocytes (%) (Auto) 6 % (0-9) 6 % (0-9) Eosinophils (%) (Auto) 0 % (0-3) 1 % (0-3) Basophils (%) (Auto) 0 % (0-3) 1 % (0-3) Neutrophils # (Auto) 5.9 x10^3/uL (1.8-7.7) 4.4 x10^3/uL (1.8-7.7) Lymphocytes # (Auto) 0.5 x10^3/uL (1.0-4.8) 0.6 x10^3/uL (1.0-4.8) Monocytes # (Auto) 0.4 x10^3/uL (0.0-1.1) 0.3 x10^3/uL (0.0-1.1) Eosinophils # (Auto) 0.0 x10^3/uL (0.0-0.7) 0.1 x10^3/uL (0.0-0.7) Basophils # (Auto) 0.0 x10^3/uL (0.0-0.2) 0.0 x10^3/uL (0.0-0.2) Sodium Level 135 mmol/L (136-145) 135 mmol/L (136-145) Potassium Level 4.0 mmol/L (3.5-5.1) 4.4 mmol/L (3.5-5.1) Chloride Level 101 mmol/L (98-107) 101 mmol/L (98-107) Carbon Dioxide Level 26 mmol/L (21-32) 27 mmol/L (21-32) Anion Gap 8 (6-14) 7 (6-14) Blood Urea Nitrogen 40 mg/dL (7-20) 41 mg/dL (7-20) Creatinine 0.9 mg/dL (0.6-1.0) 0.9 mg/dL (0.6-1.0) Estimated GFR (Cockcroft-Gault) 72.9 72.9 Glucose Level 119 mg/dL (70-99) 120 mg/dL (70-99) Calcium Level 9.9 mg/dL (8.5-10.1) 10.0 mg/dL (8.5-10.1) Phosphorus Level 3.1 mg/dL (2.6-4.7) Albumin 2.3 g/dL (3.4-5.0) Microbiology 07/22/21 Urine Culture - Final, Complete 07/22/21 Antimicrobic Susceptibility - Final, Complete 07/22/21 Blood Culture - Final, Complete NO GROWTH AFTER 5 DAYS Medications Current Medications Ringer's Solution 1,000 ml @ 100 mls/hr 1X ONCE IV Last administered on 07/22/21at 21:02; Start 07/22/21 at 18:45; Stop 07/23/21 at 04:44; Status DC Ringer's Solution 500 ml @ 500 mls/hr 1X ONCE IV Last administered on at 19:46; Start 07/22/21 at 18:45; Stop 07/22/21 at 19:44; Status DC Ondansetron HCl (Zofran) 4 mg PRN Q8HRS PRN IVP NAUSEA/VOMITING; Start 07/22/21 at 19:45; Stop 07/23/21 at 19:44; Status DC Sodium Chloride 1,000 ml @ 75 mls/hr [id number] IV Last administered on 07/23/21at 06:45; Start 07/22/21 at 19:45; Stop 07/25/21 at 01:45; Status DC Acetaminophen (Tylenol) 650 mg PRN Q4HRS PRN PO FEVER > 100.3'F; Start 07/22/21 at 19:45; Stop 07/23/21 at 19:44; Status DC Heparin Sodium (Porcine) (Heparin Sodium) 4,000 unit 1X ONCE IV ; Start 07/22/21 at 20:45; Stop 07/22/21 at 22:11; Status DC Heparin Sodium/ Dextrose 250 ml @ 8.7 mls/hr CONT PRN IV PER PROTOCOL; Start 07/22/21 at 20:45; Stop 07/22/21 at 22:11; Status DC Heparin Sodium (Porcine) (Heparin Sodium) 1,800 unit PRN Q6HRS PRN IV FOR UFH LEVEL LESS THAN 0.2; Start 07/22/21 at 20:45; Stop 07/22/21 at 22:11; Status DC Ceftriaxone Sodium (Rocephin) 1 gm QHS IVP Last administered on 07/23/21at 01:20; Start 07/23/21 at 01:30; Stop 07/23/21 at 09:20; Status DC Ceftriaxone Sodium (Rocephin) 1 gm Q24H IVP ; Start 07/23/21 at 05:30; Status UNV Ceftriaxone Sodium (Rocephin) 1 gm Q24H IVP ; Start 07/23/21 at 10:00; Stop 07/23/21 at 09:37; Status DC Atorvastatin Calcium (Lipitor) 80 mg QHS PO ; Start 07/23/21 at 21:00 Carvedilol (Coreg) 12.5 mg BIDWMEALS PO ; Start 07/23/21 at 17:00 Clonidine HCl (Catapres) 0.2 mg BID PO ; Start 07/23/21 at 21:00 Clopidogrel Bisulfate (Plavix) 75 mg DAILY PO Last administered on 07/23/21at 11:07; Start 07/23/21 at 10:00 Ferrous Sulfate (Feosol) 325 mg DAILY PO Last administered on 07/23/21at 11:07; Start 07/23/21 at 10:00 Memantine (Namenda) 10 mg BID PO Last administered on 07/23/21at 11:09; Start 07/23/21 at 10:00 Fluoxetine HCl (PROzac) 60 mg DAILY PO ; Start 07/24/21 at 09:00 Lisinopril (Prinivil) 2.5 mg DAILY PO Last administered on 07/23/21at 11:09; Start 07/23/21 at 10:00 Ceftriaxone Sodium (Rocephin) 1 gm Q24H IVP Last administered on 07/25/21at 08:32; Start 07/24/21 at 09:00; Stop 07/25/21 at 16:44; Status DC Amino Acids/ Electrolytes/ Dextrose 1,000 ml @ 80 mls/hr [id number] IV Last administered on 07/30/21at 08:30; Start 07/23/21 at 14:30 Hydralazine HCl (Apresoline Inj) 10 mg PRN Q4HRS PRN IVP ELEVATED BP, SEE COMMENTS Last administered on 07/24/21at 18:01; Start 07/23/21 at 14:30; Stop 07/24/21 at 18:54; Status DC Hydralazine HCl (Apresoline Inj) 10 mg PRN Q4HRS PRN IVP ELEVATED BP, SEE CO MMENTS Last administered on 07/29/21at 10:53; Start 07/24/21 at 19:00 Heparin Sodium (Porcine) (Heparin Sodium) 5,000 unit Q12HR SQ Last administered on 07/30/21at 08:38; Start 07/24/21 at 21:00 Sodium Chloride 1,000 ml @ 100 mls/hr 1X ONCE IV ; Start 07/25/21 at 13:00; Stop 07/25/21 at 22:59; Status DC Cefepime HCl (Maxipime) 1 gm Q12HR IVP Last administered on 07/30/21at 08:30; S tart 07/25/21 at 17:00; Stop 08/04/21 at 16:59 Potassium Chloride/Water 100 ml @ 100 mls/hr Q1H IV Last administered on 07/26/21at 18:36; Start 07/26/21 at 17:00; Stop 07/26/21 at 19:59; Status DC Ondansetron HCl (Zofran) 4 mg PRN Q4HRS PRN IVP NAUSEA/VOMITING Last administered on 07/29/21at 15:02; Start 07/29/21 at 15:00 Active Scripts Active Atorvastatin Calcium 40 Mg Tablet 80 Mg PO QHS 90 Days Reported Fluoxetine Hcl 60 Mg Tablet 60 Mg PO DAILY Olanzapine 10 Mg Tablet 10 Mg PO HS Namenda (Memantine Hcl) 10 Mg Tablet 10 Mg PO BID Remeron (Mirtazapine) 30 Mg Tablet 30 Mg PO DAILY Lisinopril 2.5 Mg Tablet 2.5 Mg PO DAILY Oxybutynin Chloride Er (Oxybutynin Chloride) 10 Mg Tab.er.24 10 Mg PO DAILY Metformin Hcl 500 Mg Tablet 500 Mg PO BIDWMEALS Ferrous Sulfate 325 Mg Tablet 1 Tab PO DAILY 1 Days Clopidogrel (Clopidogrel Bisulfate) 75 Mg Tablet 1 Tab PO DAILY Clonidine Hcl 0.2 Mg Tablet 0.2 Mg PO BID Carvedilol (Carvedilol) 12.5 Mg Tablet 12.5 Mg PO BIDWMEALS Vitals/I & O Vital Sign - Last 24 Hours 07/29/21 07/29/21 07/29/21 07/29/21 15:00 17:00 19:36 20:00 Temp 98.2 98.4 98.2 98.4 Pulse 104 104 105 Resp 26 20 B/P (MAP) 145/82 (103) 145/82 159/84 (109) Pulse Ox 96 97 O2 Delivery Room Air Room Air Room Air 07/29/21 07/30/21 07/30/21 23:46 03:50 07:00 Temp 98.7 98.6 98.0 98.7 98.6 98.0 Pulse 103 94 100 Resp 16 18 18 B/P (MAP) 164/88 (113) 174/83 (113) 162/92 (115) Pulse Ox 95 97 96 O2 Delivery Room Air Room Air Room Air Intake and Output 07/29/21 07/29/21 07/30/21 15:00 23:00 07:00 Intake Total 0 ml Balance 0 ml Nutrition Consultation Dietary Evaluation: Recommendations by RD: Dietary education by RD, PPN/TPN Comments: NPO PPN @ 80 ml/hr REC diet per [employer] with oral nutrition supplements Expected Outcomes/Goals: monitor diet advancement/need for nutrition support Interpretation of weight loss: >10% in 6 months Malnutrition Findings: Body Fat Depletion (Non Severe: Mild Depletion Weight Status: Appropriate Justicifation of Admission Dx: Justifications for Admission: Justification of Admission Dx: N/A BRITTANY YATES MD Jul 30, 2021 11:06
[2021-07-30] MEDS: hydrALAZINE 20 MG/ML VIAL. IVP PRN (15:06)
[2021-07-30] MEDS: ATORVASTATIN CALCIUM 40 MG TABLET. PO SCH (19:43)
[2021-07-31 03:17] VITALS: BP 183/100
[2021-07-31] MEDS: hydrALAZINE 20 MG/ML VIAL. IVP PRN ×3 (03:20→16:12)
[2021-07-31 06:42] LABS: BASO % 1 % (0-3); EOS % 1 % (0-3); HEMATOCRIT 31.5 % (36.0-47.0); HEMOGLOBIN 10.4 g/dL (12.0-15.5); LYMPH # 0.6 x10^3/uL (1.0-4.8); LYMPH % 12 % (24-48); MEAN CORPUSCULAR HEMOGLOBIN 30 pg (25-35); MEAN CORPUSCULAR HGB CONC 33 g/dL (31-37); MEAN CORPUSCULAR VOLUME 90 fL (79-100); MONO # 0.5 x10^3/uL (0.0-1.1); MONO % 11 % (0-9); NEUT # 3.7 x10^3/uL (1.8-7.7); NEUT % 76 % (31-73); PLATELET COUNT 186 x10^3/uL (140-400); RED BLOOD COUNT 3.49 x10^6/uL (3.50-5.40); WHITE BLOOD COUNT 4.9 x10^3/uL (4.0-11.0)
[2021-07-31 07:00] VITALS: BP 165/82
[2021-07-31 07:14] LABS: CREATININE 0.9 mg/dL (0.6-1.0); GFR 72.9; POTASSIUM 4.6 mmol/L (3.5-5.1)
[2021-07-31] MEDS: CARVEDILOL 12.5 MG TABLET. PO SCH ×2 (07:28→14:37)
[2021-07-31] MEDS: CLOPIDOGREL BISULFATE 75 MG TABLET PO SCH (07:29)
[2021-07-31] MEDS: FERROUS SULFATE 325 MG TABLET. PO SCH (07:29)
[2021-07-31] MEDS: cloNIDine HCL 0.2 MG TABLET PO SCH ×2 (07:29→19:41)
[2021-07-31] MEDS: LISINOPRIL 5 MG TABLET. PO SCH (07:29)
[2021-07-31] MEDS: MEMANTINE 10 MG TABLET. PO SCH ×2 (07:29→19:41)
[2021-07-31] MEDS: FLUoxetine HCL 20 MG CAPSULE PO SCH (07:30)
[2021-07-31] MEDS: AA 4.25 %/CALCIUM/LYTES/D5W 1,000 ML IV SCH ×2 (08:30→20:38)
[2021-07-31] MEDS: CEFEPIME HCL IV Push 1 GM VIAL. IVP SCH ×2 (08:31→20:38)
[2021-07-31] MEDS: HEPARIN for SUB-Q USE 5,000 UNIT/ML VIAL. SQ SCH ×2 (08:42→20:39)
[2021-07-31 11:00] VITALS: BP 133/71
--- NOTE | 2021-07-31 14:38 | PDOC ---
[employer] PROGRESS NOTE Date of Service DOS: DATE: 07/31/21 TIME: 14:36 Chief Complaint Chief Complaint AMS Acute cystitis Dehydration Dysphagia History of Present Illness History of Present Illness HPI: This patient is an 81-year-old woman who is well known to me from many years of outpatient primary care work together until about a year ago after her , her dementia worsened and she needed to be move to [facility]. I have not seen her since that time. She has markedly declined and has lost at least 50 pounds or more and is completely disengaged and did not recognize me on my evaluation this morning. The patient was sent in with altered mental status, was found to have a urinary tract infection. Final culture results are pending and blood cultures have been sent. It looks like the patient has also been refusing to eat and drink there and is also quite dehydrated. The patient appeared comfortable on my assessment this morning. There is no other report from the [facility] of new symptoms including no cough, congestion, pain anywhere, falls, or any other new specific constitutional symptoms. All other systems reviewed and negative. 07/24/2021: Patient seen and evaluated. No acute vents overnight, low-grade fever this morning (T-max 100.1 F). She is a long-term resident at [place]. Currently n.p.o. due to dysphagia; ST following. Continue treatment of acute cystitis with Rocephin 1 g daily. Continue to follow urine culture. 07/25/2021: Patient seen and evaluated bedside. Afebrile overnight. Resting comfortably in bed. Not answering many questions. Still norma n.p.o. We will continue treatment UTI with Rocephin 1 g daily for total of 3 days. Urine culture grew E. coli and Pseudomonas; susceptibilities pending. Will provide IV normal fluids. 07/26/2021: Patient seen and evaluated. Much more alert today. Changed her antibiotic from Rocephin to cefepime yesterday for Pseudomonas coverage. However urine culture grew Pseudomonas and E. coli, pansensitive cephalosporins. Day 3 of IV antibiotics with Rocephin/cefepime, so her antibiotic regimen for simple cystitis will be finished tomorrow. Spoke with ST, patient's still failing swallow evaluation; remains n.p.o. Continue with TPN. Placed consultation to nutrition and GI for possible PEG tube placement. 07/27/2021: Patient seen and examined. She is awake and in no acute distress. Patient completed her regimen of rocephin/cefepime today. Consulted with GI regarding PEG tube placement. She is on IV clinimix. Speech therapy will be re- evaluating her swallowing tomorrow 07/28. Discussed with RN. Chart reviewed. 07/28/2021 81 y/o female who is non-verbal, w/ UTI. H/o CVA, hemiparesis,dysphagia previously / failing swallow evals. s/p cva, comfort recommended without improved survival with EPG. markedly declined and has lost at least 50 pounds / disengaged seen and examined awake and in no acute distress. regimen of rocephin/cefepime Consulted with GI regarding PEG tube placement. on IV clinimix. Speech therapy will be re-evaluating her swallowing 07/28. Discussed with RN. Chart reviewed. 07/29/2021 81 y/o female who is non-verbal, w/ UTI. H/o CVA, hemiparesis,dysphagia previously / failing swallow evals. s/p cva, comfort recommended without improved survival with EPG. markedly declined and has lost at least 50 pounds / disengaged seen and examined awake and in no acute distress. regimen of rocephin/cefepime Consulted with GI regarding PEG tube placement. on IV clinimix. Speech therapy will be re-evaluating her swallowing 07/28. Discussed with RN. Chart reviewed. 07/30/2021 81 y/o female non-verbal, w/ UTI. H/o CVA, hemiparesis,dysphagia previously / failing swallow evals. s/p cva, comfort recommended without improved survival with EPG. markedly declined and has lost at least 50 pounds / disengaged seen and examined awake and in no acute distress. regimen of rocephin/cefepime Consulted with GI regarding PEG tube placement. on IV clinimix. Speech therapy will be re-evaluating her swallowing 07/28. Discussed with RN. Chart reviewed. 07/31/21 Patient is a examined at bedside. Remains on cefepime for UTI treatment. Somewhat lethargic this morning. Hoping for speech reevaluation in the next few days. Given current condition we will try to discuss case with patient's family given very poor prognosis. Vitals/I&O Vitals/I&O: Vital Signs Date Time Temp Pulse Resp B/P (MAP) Pulse Ox O2 Delivery O2 Flow Rate FiO2 07/31/21 11:00 98.2 101 16 133/71 (91) 95 Room Air 98.2 I & O 07/30/21 07/30/21 07/31/21 15:00 23:00 07:00 Intake Total 0 ml 0 ml 0 ml Balance 0 ml 0 ml 0 ml Physical Exam General: Cooperative, No acute distress Heart: Regular rate, Normal S1 Lungs: Clear Abdomen: Normal bowel sounds, Soft, No tenderness Extremities: No clubbing, No cyanosis Skin: No rashes, No breakdown Labs Labs: Laboratory Tests Test 07/31/21 06:25 White Blood Count 4.9 x10^3/uL (4.0-11.0) Red Blood Count 3.49 x10^6/uL (3.50-5.40) Hemoglobin 10.4 g/dL (12.0-15.5) Hematocrit 31.5 % (36.0-47.0) Mean Corpuscular Volume 90 fL (79-100) Mean Corpuscular Hemoglobin 30 pg (25-35) Mean Corpuscular Hemoglobin Concent 33 g/dL (31-37) Red Cell Distribution Width 15.0 % (11.5-14.5) Platelet Count 186 x10^3/uL (140-400) Neutrophils (%) (Auto) 76 % (31-73) Lymphocytes (%) (Auto) 12 % (24-48) Monocytes (%) (Auto) 11 % (0-9) Eosinophils (%) (Auto) 1 % (0-3) Basophils (%) (Auto) 1 % (0-3) Neutrophils # (Auto) 3.7 x10^3/uL (1.8-7.7) Lymphocytes # (Auto) 0.6 x10^3/uL (1.0-4.8) Monocytes # (Auto) 0.5 x10^3/uL (0.0-1.1) Eosinophils # (Auto) 0.0 x10^3/uL (0.0-0.7) Basophils # (Auto) 0.0 x10^3/uL (0.0-0.2) Sodium Level 132 mmol/L (136-145) Potassium Level 4.6 mmol/L (3.5-5.1) Chloride Level 99 mmol/L (98-107) Carbon Dioxide Level 28 mmol/L (21-32) Anion Gap 5 (6-14) Blood Urea Nitrogen 43 mg/dL (7-20) Creatinine 0.9 mg/dL (0.6-1.0) Estimated GFR (Cockcroft-Gault) 72.9 Glucose Level 107 mg/dL (70-99) Calcium Level 10.0 mg/dL (8.5-10.1) Assessment and Plan Assessmemt and Plan Problems Medical Problems: (1) AMS (altered mental status) Status: Acute (2) UTI (urinary tract infection) Status: Acute Comment Review of Relevant I have reviewed the following items shakeel (where applicable) has been applied. Justifications for Admission Other Justification HTN urgency WENDY SILVA MD Jul 31, 2021 14:38
[2021-07-31 15:00] VITALS: BP 172/89
[2021-07-31 19:00] VITALS: BP 154/73
[2021-07-31] MEDS: ATORVASTATIN CALCIUM 40 MG TABLET. PO SCH (19:41)
[2021-07-31 23:00] VITALS: BP 156/87
[2021-08-01] VITALS (7 sets, daily range): BP systolic 159–176; BP diastolic 76–98
[2021-08-01 07:17] LABS: BASO % 0 % (0-3); EOS % 1 % (0-3); HEMATOCRIT 31.4 % (36.0-47.0); HEMOGLOBIN 10.4 g/dL (12.0-15.5); LYMPH # 0.6 x10^3/uL (1.0-4.8); LYMPH % 11 % (24-48); MEAN CORPUSCULAR HEMOGLOBIN 30 pg (25-35); MEAN CORPUSCULAR HGB CONC 33 g/dL (31-37); MEAN CORPUSCULAR VOLUME 90 fL (79-100); MONO # 0.6 x10^3/uL (0.0-1.1); MONO % 10 % (0-9); NEUT # 4.3 x10^3/uL (1.8-7.7); NEUT % 78 % (31-73); PLATELET COUNT 200 x10^3/uL (140-400); RED CELL DISTRIBUTION WIDTH 14.8 % (11.5-14.5); WHITE BLOOD COUNT 5.6 x10^3/uL (4.0-11.0)
[2021-08-01] MEDS: CARVEDILOL 12.5 MG TABLET. PO SCH ×2 (08:00→17:00)
[2021-08-01] MEDS: FERROUS SULFATE 325 MG TABLET. PO SCH (08:53)
[2021-08-01] MEDS: MEMANTINE 10 MG TABLET. PO SCH ×2 (08:53→21:51)
[2021-08-01] MEDS: cloNIDine HCL 0.2 MG TABLET PO SCH ×2 (08:53→21:50)
[2021-08-01] MEDS: CLOPIDOGREL BISULFATE 75 MG TABLET PO SCH (08:53)
[2021-08-01] MEDS: LISINOPRIL 5 MG TABLET. PO SCH (08:53)
[2021-08-01] MEDS: FLUoxetine HCL 20 MG CAPSULE PO SCH (08:54)
[2021-08-01] MEDS: CEFEPIME HCL IV Push 1 GM VIAL. IVP SCH ×2 (09:08→21:55)
[2021-08-01] MEDS: HEPARIN for SUB-Q USE 5,000 UNIT/ML VIAL. SQ SCH ×2 (09:24→22:03)
[2021-08-01] MEDS: AA 4.25 %/CALCIUM/LYTES/D5W 1,000 ML IV SCH ×2 (11:48→23:59)
--- NOTE | 2021-08-01 16:34 | PDOC ---
[employer] PROGRESS NOTE Date of Service DOS: DATE: 08/01/21 TIME: 16:32 Chief Complaint Chief Complaint AMS Acute cystitis Dehydration Dysphagia History of Present Illness History of Present Illness HPI: This patient is an 81-year-old woman who is well known to me from many years of outpatient primary care work together until about a year ago after her , her dementia worsened and she needed to be move to [facility]. I have not seen her since that time. She has markedly declined and has lost at least 50 pounds or more and is completely disengaged and did not recognize me on my evaluation this morning. The patient was sent in with altered mental status, was found to have a urinary tract infection. Final culture results are pending and blood cultures have been sent. It looks like the patient has also been refusing to eat and drink there and is also quite dehydrated. The patient appeared comfortable on my assessment this morning. There is no other report from the [facility] of new symptoms including no cough, congestion, pain anywhere, falls, or any other new specific constitutional symptoms. All other systems reviewed and negative. 07/24/2021: Patient seen and evaluated. No acute vents overnight, low-grade fever this morning (T-max 100.1 F). She is a long-term resident at [facility]. Currently n.p.o. due to dysphagia; ST following. Continue treatment of acute cystitis with Rocephin 1 g daily. Continue to follow urine culture. 07/25/2021: Patient seen and evaluated bedside. Afebrile overnight. Resting comfortably in bed. Not answering many questions. Still norma n.p.o. We will continue treatment UTI with Rocephin 1 g daily for total of 3 days. Urine culture grew E. coli and Pseudomonas; susceptibilities pending. Will provide IV normal fluids. 07/26/2021: Patient seen and evaluated. Much more alert today. Changed her antibiotic from Rocephin to cefepime yesterday for Pseudomonas coverage. However urine culture grew Pseudomonas and E. coli, pansensitive cephalosporins. Day 3 of IV antibiotics with Rocephin/cefepime, so her antibiotic regimen for simple cystitis will be finished tomorrow. Spoke with ST, patient's still failing swallow evaluation; remains n.p.o. Continue with TPN. Placed consultation to nutrition and GI for possible PEG tube placement. 07/27/2021: Patient seen and examined. She is awake and in no acute distress. Patient completed her regimen of rocephin/cefepime today. Consulted with GI regarding PEG tube placement. She is on IV clinimix. Speech therapy will be re- evaluating her swallowing tomorrow 07/28. Discussed with RN. Chart reviewed. 07/28/2021 81 y/o female who is non-verbal, w/ UTI. H/o CVA, hemiparesis,dysphagia previously / failing swallow evals. s/p cva, comfort recommended without improved survival with EPG. markedly declined and has lost at least 50 pounds / disengaged seen and examined awake and in no acute distress. regimen of rocephin/cefepime Consulted with GI regarding PEG tube placement. on IV clinimix. Speech therapy will be re-evaluating her swallowing 07/28. Discussed with RN. Chart reviewed. 07/29/2021 81 y/o female who is non-verbal, w/ UTI. H/o CVA, hemiparesis,dysphagia previously / failing swallow evals. s/p cva, comfort recommended without improved survival with EPG. markedly declined and has lost at least 50 pounds / disengaged seen and examined awake and in no acute distress. regimen of rocephin/cefepime Consulted with GI regarding PEG tube placement. on IV clinimix. Speech therapy will be re-evaluating her swallowing 07/28. Discussed with RN. Chart reviewed. 07/30/2021 81 y/o female non-verbal, w/ UTI. H/o CVA, hemiparesis,dysphagia previously / failing swallow evals. s/p cva, comfort recommended without improved survival with EPG. markedly declined and has lost at least 50 pounds / disengaged seen and examined awake and in no acute distress. regimen of rocephin/cefepime Consulted with GI regarding PEG tube placement. on IV clinimix. Speech therapy will be re-evaluating her swallowing 07/28. Discussed with RN. Chart reviewed. 07/31/21 Patient is a examined at bedside. Remains on cefepime for UTI treatment. Somewhat lethargic this morning. Hoping for speech reevaluation in the next few days. Given current condition we will try to discuss case with patient's family given very poor prognosis. 08/01 No major clinical changes. No plans for PEG tube at this point. Contacted patient's son and left a voicemail with my contact information. Otherwise no changes Vitals/I&O Vitals/I&O: Vital Signs Date Time Temp Pulse Resp B/P (MAP) Pulse Ox O2 Delivery O2 Flow Rate FiO2 08/01/21 15:00 98.4 103 20 176/98 (124) 98 Room Air 98.4 I & O 07/31/21 07/31/21 08/01/21 15:00 23:00 07:00 Intake Total 0 ml Balance 0 ml Physical Exam General: Cooperative, No acute distress Heart: Regular rate, Normal S1 Lungs: Clear Abdomen: Normal bowel sounds, Soft, No tenderness Extremities: No clubbing, No cyanosis Skin: No rashes, No breakdown Labs Labs: Laboratory Tests Test 08/01/21 06:35 White Blood Count 5.6 x10^3/uL (4.0-11.0) Red Blood Count 3.50 x10^6/uL (3.50-5.40) Hemoglobin 10.4 g/dL (12.0-15.5) Hematocrit 31.4 % (36.0-47.0) Mean Corpuscular Volume 90 fL (79-100) Mean Corpuscular Hemoglobin 30 pg (25-35) Mean Corpuscular Hemoglobin Concent 33 g/dL (31-37) Red Cell Distribution Width 14.8 % (11.5-14.5) Platelet Count 200 x10^3/uL (140-400) Neutrophils (%) (Auto) 78 % (31-73) Lymphocytes (%) (Auto) 11 % (24-48) Monocytes (%) (Auto) 10 % (0-9) Eosinophils (%) (Auto) 1 % (0-3) Basophils (%) (Auto) 0 % (0-3) Neutrophils # (Auto) 4.3 x10^3/uL (1.8-7.7) Lymphocytes # (Auto) 0.6 x10^3/uL (1.0-4.8) Monocytes # (Auto) 0.6 x10^3/uL (0.0-1.1) Eosinophils # (Auto) 0.0 x10^3/uL (0.0-0.7) Basophils # (Auto) 0.0 x10^3/uL (0.0-0.2) Assessment and Plan Assessmemt and Plan Problems Medical Problems: (1) AMS (altered mental status) Status: Acute (2) UTI (urinary tract infection) Status: Acute Comment Review of Relevant I have reviewed the following items shakeel (where applicable) has been applied. Justifications for Admission Other Justification HTN urgency WENDY SILVA MD Aug 01, 2021 16:34
[2021-08-01] MEDS: hydrALAZINE 20 MG/ML VIAL. IVP PRN (17:06)
[2021-08-01] MEDS: ATORVASTATIN CALCIUM 40 MG TABLET. PO SCH (21:50)
[2021-08-02] VITALS (7 sets, daily range): BP systolic 140–178; BP diastolic 68–89
[2021-08-02 06:30] LABS: BASO % 1 % (0-3); EOS % 1 % (0-3); HEMATOCRIT 31.8 % (36.0-47.0); LYMPH # 0.8 x10^3/uL (1.0-4.8); LYMPH % 16 % (24-48); MEAN CORPUSCULAR HEMOGLOBIN 31 pg (25-35); MEAN CORPUSCULAR HGB CONC 35 g/dL (31-37); MEAN CORPUSCULAR VOLUME 90 fL (79-100); MONO # 0.5 x10^3/uL (0.0-1.1); MONO % 9 % (0-9); NEUT # 3.7 x10^3/uL (1.8-7.7); NEUT % 73 % (31-73); PLATELET COUNT 218 x10^3/uL (140-400); RED BLOOD COUNT 3.54 x10^6/uL (3.50-5.40); RED CELL DISTRIBUTION WIDTH 14.8 % (11.5-14.5); WHITE BLOOD COUNT 5.1 x10^3/uL (4.0-11.0)
[2021-08-02] MEDS: CARVEDILOL 12.5 MG TABLET. PO SCH (08:00)
[2021-08-02] MEDS: CEFEPIME HCL IV Push 1 GM VIAL. IVP SCH ×2 (08:12→20:30)
[2021-08-02] MEDS: hydrALAZINE 20 MG/ML VIAL. IVP PRN ×2 (08:13→17:42)
[2021-08-02] MEDS: HEPARIN for SUB-Q USE 5,000 UNIT/ML VIAL. SQ SCH ×2 (08:20→20:38)
[2021-08-02] MEDS: CLOPIDOGREL BISULFATE 75 MG TABLET PO SCH (08:21)
[2021-08-02] MEDS: MEMANTINE 10 MG TABLET. PO SCH (08:21)
[2021-08-02] MEDS: FERROUS SULFATE 325 MG TABLET. PO SCH (08:21)
[2021-08-02] MEDS: cloNIDine HCL 0.2 MG TABLET PO SCH (08:21)
[2021-08-02] MEDS: FLUoxetine HCL 20 MG CAPSULE PO SCH (08:21)
[2021-08-02] MEDS: LISINOPRIL 5 MG TABLET. PO SCH (08:21)
[2021-08-02] MEDS: AA 4.25 %/CALCIUM/LYTES/D5W 1,000 ML IV SCH (13:07)
--- NOTE | 2021-08-02 15:19 | PDOC ---
[employer] PROGRESS NOTE Date of Service DOS: DATE: 08/02/21 TIME: 15:15 Chief Complaint Chief Complaint AMS Acute cystitis Dehydration Dysphagia History of Present Illness History of Present Illness HPI: This patient is an 81-year-old woman who is well known to me from many years of outpatient primary care work together until about a year ago after her , her dementia worsened and she needed to be move to [facility]. I have not seen her since that time. She has markedly declined and has lost at least 50 pounds or more and is completely disengaged and did not recognize me on my evaluation this morning. The patient was sent in with altered mental status, was found to have a urinary tract infection. Final culture results are pending and blood cultures have been sent. It looks like the patient has also been refusing to eat and drink there and is also quite dehydrated. The patient appeared comfortable on my assessment this morning. There is no other report from the [facility] of new symptoms including no cough, congestion, pain anywhere, falls, or any other new specific constitutional symptoms. All other systems reviewed and negative. 07/24/2021: Patient seen and evaluated. No acute vents overnight, low-grade fever this morning (T-max 100.1 F). She is a long-term resident at [facility]. Currently n.p.o. due to dysphagia; ST following. Continue treatment of acute cystitis with Rocephin 1 g daily. Continue to follow urine culture. 07/25/2021: Patient seen and evaluated bedside. Afebrile overnight. Resting comfortably in bed. Not answering many questions. Still norma n.p.o. We will continue treatment UTI with Rocephin 1 g daily for total of 3 days. Urine culture grew E. coli and Pseudomonas; susceptibilities pending. Will provide IV normal fluids. 07/26/2021: Patient seen and evaluated. Much more alert today. Changed her antibiotic from Rocephin to cefepime yesterday for Pseudomonas coverage. However urine culture grew Pseudomonas and E. coli, pansensitive cephalosporins. Day 3 of IV antibiotics with Rocephin/cefepime, so her antibiotic regimen for simple cystitis will be finished tomorrow. Spoke with ST, patient's still failing swallow evaluation; remains n.p.o. Continue with TPN. Placed consultation to nutrition and GI for possible PEG tube placement. 07/27/2021: Patient seen and examined. She is awake and in no acute distress. Patient completed her regimen of rocephin/cefepime today. Consulted with GI regarding PEG tube placement. She is on IV clinimix. Speech therapy will be re- evaluating her swallowing tomorrow 07/28. Discussed with RN. Chart reviewed. 07/28/2021 81 y/o female who is non-verbal, w/ UTI. H/o CVA, hemiparesis,dysphagia previously / failing swallow evals. s/p cva, comfort recommended without improved survival with EPG. markedly declined and has lost at least 50 pounds / disengaged seen and examined awake and in no acute distress. regimen of rocephin/cefepime Consulted with GI regarding PEG tube placement. on IV clinimix. Speech therapy will be re-evaluating her swallowing 07/28. Discussed with RN. Chart reviewed. 07/29/2021 81 y/o female who is non-verbal, w/ UTI. H/o CVA, hemiparesis,dysphagia previously / failing swallow evals. s/p cva, comfort recommended without improved survival with EPG. markedly declined and has lost at least 50 pounds / disengaged seen and examined awake and in no acute distress. regimen of rocephin/cefepime Consulted with GI regarding PEG tube placement. on IV clinimix. Speech therapy will be re-evaluating her swallowing 07/28. Discussed with RN. Chart reviewed. 07/30/2021 81 y/o female non-verbal, w/ UTI. H/o CVA, hemiparesis,dysphagia previously / failing swallow evals. s/p cva, comfort recommended without improved survival with EPG. markedly declined and has lost at least 50 pounds / disengaged seen and examined awake and in no acute distress. regimen of rocephin/cefepime Consulted with GI regarding PEG tube placement. on IV clinimix. Speech therapy will be re-evaluating her swallowing 07/28. Discussed with RN. Chart reviewed. 07/31/21 Patient is a examined at bedside. Remains on cefepime for UTI treatment. Somewhat lethargic this morning. Hoping for speech reevaluation in the next few days. Given current condition we will try to discuss case with patient's family given very poor prognosis. 08/01 No major clinical changes. No plans for PEG tube at this point. Contacted patient's son and left a voicemail with my contact information. Otherwise no changes 08/02 Patient evaluated at bedside, no clinical changes. Discussed ongoing care with the patient's son over the phone today. Plan current situation, why PEG tube would not be a good idea and dismal prognosis. After some discussing patient's son elected that comfort care would be the best option for the patient which I agree with. Will place appropriate orders. No more lab draws. Son plans to visit [facility]. Social work informed. Uncertain if patient will qualify for inpatient hospice, will start placing comfort orders. Vitals/I&O Vitals/I&O: Vital Signs Date Time Temp Pulse Resp B/P (MAP) Pulse Ox O2 Delivery O2 Flow Rate FiO2 08/02/21 11:12 98.0 112 20 151/72 (98) 98 Room Air 98.0 I & O 08/01/21 08/01/21 08/02/21 15:00 23:00 07:00 Intake Total 0 ml 0 ml 1000 ml Balance 0 ml 0 ml 1000 ml Physical Exam General: Cooperative, No acute distress Heart: Regular rate, Normal S1 Lungs: Clear Abdomen: Normal bowel sounds, Soft, No tenderness Extremities: No clubbing, No cyanosis Skin: No rashes, No breakdown Labs Labs: Laboratory Tests Test 08/02/21 04:10 White Blood Count 5.1 x10^3/uL (4.0-11.0) Red Blood Count 3.54 x10^6/uL (3.50-5.40) Hemoglobin 11.0 g/dL (12.0-15.5) Hematocrit 31.8 % (36.0-47.0) Mean Corpuscular Volume 90 fL (79-100) Mean Corpuscular Hemoglobin 31 pg (25-35) Mean Corpuscular Hemoglobin Concent 35 g/dL (31-37) Red Cell Distribution Width 14.8 % (11.5-14.5) Platelet Count 218 x10^3/uL (140-400) Neutrophils (%) (Auto) 73 % (31-73) Lymphocytes (%) (Auto) 16 % (24-48) Monocytes (%) (Auto) 9 % (0-9) Eosinophils (%) (Auto) 1 % (0-3) Basophils (%) (Auto) 1 % (0-3) Neutrophils # (Auto) 3.7 x10^3/uL (1.8-7.7) Lymphocytes # (Auto) 0.8 x10^3/uL (1.0-4.8) Monocytes # (Auto) 0.5 x10^3/uL (0.0-1.1) Eosinophils # (Auto) 0.0 x10^3/uL (0.0-0.7) Basophils # (Auto) 0.0 x10^3/uL (0.0-0.2) Assessment and Plan Assessmemt and Plan Problems Medical Problems: (1) AMS (altered mental status) Status: Acute (2) UTI (urinary tract infection) Status: Acute Comment Review of Relevant I have reviewed the following items shakeel (where applicable) has been applied. Justifications for Admission Other Justification HTN urgency WENDY SILVA MD Aug 02, 2021 15:19
[2021-08-02] MEDS ORDERED: MORPHINE SULFATE 2 MG/ML INJ. IVP PRN (15:30)
[2021-08-02] MEDS ORDERED: GLYCOPYRROLATE 1 MG/5 ML VIAL. IV PRN (15:30)
[2021-08-03] MEDS: AA 4.25 %/CALCIUM/LYTES/D5W 1,000 ML IV SCH ×2 (01:08→14:41)
[2021-08-03] MEDS: hydrALAZINE 20 MG/ML VIAL. IVP PRN (02:26)
[2021-08-03 03:00] VITALS: BP 183/94
[2021-08-03 05:56] LABS: BASO % 1 % (0-3); EOS % 1 % (0-3); HEMATOCRIT 29.8 % (36.0-47.0); LYMPH # 0.6 x10^3/uL (1.0-4.8); LYMPH % 14 % (24-48); MEAN CORPUSCULAR HEMOGLOBIN 30 pg (25-35); MEAN CORPUSCULAR HGB CONC 34 g/dL (31-37); MEAN CORPUSCULAR VOLUME 90 fL (79-100); MONO # 0.4 x10^3/uL (0.0-1.1); MONO % 8 % (0-9); NEUT # 3.3 x10^3/uL (1.8-7.7); NEUT % 77 % (31-73); PLATELET COUNT 201 x10^3/uL (140-400); RED BLOOD COUNT 3.33 x10^6/uL (3.50-5.40); RED CELL DISTRIBUTION WIDTH 14.8 % (11.5-14.5); WHITE BLOOD COUNT 4.3 x10^3/uL (4.0-11.0)
[2021-08-03 07:15] VITALS: BP 173/81
[2021-08-03] MEDS: CEFEPIME HCL IV Push 1 GM VIAL. IVP SCH (10:20)
[2021-08-03] MEDS: HEPARIN for SUB-Q USE 5,000 UNIT/ML VIAL. SQ SCH (10:23)
[2021-08-03 10:56] VITALS: BP 166/84
--- NOTE | 2021-08-03 12:06 | PDOC ---
[employer] PROGRESS NOTE Date of Service DOS: DATE: 08/03/21 TIME: 12:06 Chief Complaint Chief Complaint AMS Acute cystitis Dehydration Dysphagia History of Present Illness History of Present Illness HPI: This patient is an 81-year-old woman who is well known to me from many years of outpatient primary care work together until about a year ago after her , her dementia worsened and she needed to be move to [facility]. I have not seen her since that time. She has markedly declined and has lost at least 50 pounds or more and is completely disengaged and did not recognize me on my evaluation this morning. The patient was sent in with altered mental status, was found to have a urinary tract infection. Final culture results are pending and blood cultures have been sent. It looks like the patient has also been refusing to eat and drink there and is also quite dehydrated. The patient appeared comfortable on my assessment this morning. There is no other report from the [facility] of new symptoms including no cough, congestion, pain anywhere, falls, or any other new specific constitutional symptoms. All other systems reviewed and negative. 07/24/2021: Patient seen and evaluated. No acute vents overnight, low-grade fever this morning (T-max 100.1 F). She is a long-term resident at [facility]. Currently n.p.o. due to dysphagia; ST following. Continue treatment of acute cystitis with Rocephin 1 g daily. Continue to follow urine culture. 07/25/2021: Patient seen and evaluated bedside. Afebrile overnight. Resting comfortably in bed. Not answering many questions. Still norma n.p.o. We will continue treatment UTI with Rocephin 1 g daily for total of 3 days. Urine culture grew E. coli and Pseudomonas; susceptibilities pending. Will provide IV normal fluids. 07/26/2021: Patient seen and evaluated. Much more alert today. Changed her antibiotic from Rocephin to cefepime yesterday for Pseudomonas coverage. However urine culture grew Pseudomonas and E. coli, pansensitive cephalosporins. Day 3 of IV antibiotics with Rocephin/cefepime, so her antibiotic regimen for simple cystitis will be finished tomorrow. Spoke with ST, patient's still failing swallow evaluation; remains n.p.o. Continue with TPN. Placed consultation to nutrition and GI for possible PEG tube placement. 07/27/2021: Patient seen and examined. She is awake and in no acute distress. Patient completed her regimen of rocephin/cefepime today. Consulted with GI regarding PEG tube placement. She is on IV clinimix. Speech therapy will be re- evaluating her swallowing tomorrow 07/28. Discussed with RN. Chart reviewed. 07/28/2021 81 y/o female who is non-verbal, w/ UTI. H/o CVA, hemiparesis,dysphagia previously / failing swallow evals. s/p cva, comfort recommended without improved survival with EPG. markedly declined and has lost at least 50 pounds / disengaged seen and examined awake and in no acute distress. regimen of rocephin/cefepime Consulted with GI regarding PEG tube placement. on IV clinimix. Speech therapy will be re-evaluating her swallowing 07/28. Discussed with RN. Chart reviewed. 07/29/2021 81 y/o female who is non-verbal, w/ UTI. H/o CVA, hemiparesis,dysphagia previously / failing swallow evals. s/p cva, comfort recommended without improved survival with EPG. markedly declined and has lost at least 50 pounds / disengaged seen and examined awake and in no acute distress. regimen of rocephin/cefepime Consulted with GI regarding PEG tube placement. on IV clinimix. Speech therapy will be re-evaluating her swallowing 07/28. Discussed with RN. Chart reviewed. 07/30/2021 81 y/o female non-verbal, w/ UTI. H/o CVA, hemiparesis,dysphagia previously / failing swallow evals. s/p cva, comfort recommended without improved survival with EPG. markedly declined and has lost at least 50 pounds / disengaged seen and examined awake and in no acute distress. regimen of rocephin/cefepime Consulted with GI regarding PEG tube placement. on IV clinimix. Speech therapy will be re-evaluating her swallowing 07/28. Discussed with RN. Chart reviewed. 07/31/21 Patient is a examined at bedside. Remains on cefepime for UTI treatment. Somewhat lethargic this morning. Hoping for speech reevaluation in the next few days. Given current condition we will try to discuss case with patient's family given very poor prognosis. 08/01 No major clinical changes. No plans for PEG tube at this point. Contacted patient's son and left a voicemail with my contact information. Otherwise no changes 08/02 Patient evaluated at bedside, no clinical changes. Discussed ongoing care with the patient's son over the phone today. Plan current situation, why PEG tube would not be a good idea and dismal prognosis. After some discussing patient's son elected that comfort care would be the best option for the patient which I agree with. Will place appropriate orders. No more lab draws. Son plans to visit [facility]. Social work informed. Uncertain if patient will qualify for inpatient hospice, will start placing comfort orders. 08/03 No clinical changes. Plan for hospice meeting today at 630. Vitals/I&O Vitals/I&O: Vital Signs Date Time Temp Pulse Resp B/P (MAP) Pulse Ox O2 Delivery O2 Flow Rate FiO2 08/03/21 10:56 97.1 90 18 166/84 (111) 99 Room Air 97.1 I & O 08/02/21 08/02/21 08/03/21 15:00 23:00 07:00 Intake Total 1000 ml 0 ml 1000 ml Balance 1000 ml 0 ml 1000 ml Physical Exam General: Cooperative, No acute distress Heart: Regular rate, Normal S1 Lungs: Clear Abdomen: Normal bowel sounds, Soft, No tenderness Extremities: No clubbing, No cyanosis Skin: No rashes, No breakdown Labs Labs: Laboratory Tests Test 08/03/21 05:25 White Blood Count 4.3 x10^3/uL (4.0-11.0) Red Blood Count 3.33 x10^6/uL (3.50-5.40) Hemoglobin 10.0 g/dL (12.0-15.5) Hematocrit 29.8 % (36.0-47.0) Mean Corpuscular Volume 90 fL (79-100) Mean Corpuscular Hemoglobin 30 pg (25-35) Mean Corpuscular Hemoglobin Concent 34 g/dL (31-37) Red Cell Distribution Width 14.8 % (11.5-14.5) Platelet Count 201 x10^3/uL (140-400) Neutrophils (%) (Auto) 77 % (31-73) Lymphocytes (%) (Auto) 14 % (24-48) Monocytes (%) (Auto) 8 % (0-9) Eosinophils (%) (Auto) 1 % (0-3) Basophils (%) (Auto) 1 % (0-3) Neutrophils # (Auto) 3.3 x10^3/uL (1.8-7.7) Lymphocytes # (Auto) 0.6 x10^3/uL (1.0-4.8) Monocytes # (Auto) 0.4 x10^3/uL (0.0-1.1) Eosinophils # (Auto) 0.0 x10^3/uL (0.0-0.7) Basophils # (Auto) 0.0 x10^3/uL (0.0-0.2) Assessment and Plan Assessmemt and Plan Problems Medical Problems: (1) AMS (altered mental status) Status: Acute (2) UTI (urinary tract infection) Status: Acute Comment Review of Relevant I have reviewed the following items shakeel (where applicable) has been applied. Justifications for Admission Other Justification HTN urgency WENDY SILVA MD Aug 03, 2021 12:06
[2021-08-03 14:59] VITALS: BP 157/78
[2021-08-03] MEDS: ONDANSETRON PF 4 MG/2 ML VIAL. IVP PRN (17:56)
[2021-08-03 19:00] VITALS: BP 159/92
[2021-08-03] MEDS ORDERED: MORPHINE SULFATE 2 MG/ML INJ. IVP PRN (20:15)
[2021-08-04 07:00] VITALS: BP 146/86
--- NOTE | 2021-08-04 12:51 | PDOC ---
[facility] PROGRESS NOTE Date of Service DOS: DATE: 08/04/21 TIME: 12:50 Chief Complaint Chief Complaint AMS Acute cystitis Dehydration Dysphagia Patient is now comfort measures only. Provide symptomatic treatment. Uncertain if she will qualify for inpatient hospice History of Present Illness History of Present Illness HPI: This patient is an 81-year-old woman who is well known to me from many years of outpatient primary care work together until about a year ago after her , her dementia worsened and she needed to be move to [facility]. I have not seen her since that time. She has markedly declined and has lost at least 50 pounds or more and is completely disengaged and did not recognize me on my evaluation this morning. The patient was sent in with altered mental status, was found to have a urinary tract infection. Final culture results are pending and blood cultures have been sent. It looks like the patient has also been refusing to eat and drink there and is also quite dehydrated. The patient appeared comfortable on my assessment this morning. There is no other report from the [facility] of new symptoms including no cough, congestion, pain anywhere, falls, or any other new specific constitutional symptoms. All other systems reviewed and negative. 07/24/2021: Patient seen and evaluated. No acute vents overnight, low-grade fever this morning (T-max 100.1 F). She is a long-term resident at [facility]. Currently n.p.o. due to dysphagia; ST following. Continue treatment of acute cystitis with Rocephin 1 g daily. Continue to follow urine culture. 07/25/2021: Patient seen and evaluated bedside. Afebrile overnight. Resting comfortably in bed. Not answering many questions. Still norma n.p.o. We will continue treatment UTI with Rocephin 1 g daily for total of 3 days. Urine culture grew E. coli and Pseudomonas; susceptibilities pending. Will provide IV normal fluids. 07/26/2021: Patient seen and evaluated. Much more alert today. Changed her antibiotic from Rocephin to cefepime yesterday for Pseudomonas coverage. However urine culture grew Pseudomonas and E. coli, pansensitive cephalosporins. Day 3 of IV antibiotics with Rocephin/cefepime, so her antibiotic regimen for simple cystitis will be finished tomorrow. Spoke with ST, patient's still failing swallow evaluation; remains n.p.o. Continue with TPN. Placed consultation to nutrition and GI for possible PEG tube placement. 07/27/2021: Patient seen and examined. She is awake and in no acute distress. Patient completed her regimen of rocephin/cefepime today. Consulted with GI regarding PEG tube placement. She is on IV clinimix. Speech therapy will be re- evaluating her swallowing tomorrow 07/28. Discussed with RN. Chart reviewed. 07/28/2021 81 y/o female who is non-verbal, w/ UTI. H/o CVA, hemiparesis,dysphagia previously / failing swallow evals. s/p cva, comfort recommended without improved survival with EPG. markedly declined and has lost at least 50 pounds / disengaged seen and examined awake and in no acute distress. regimen of rocephin/cefepime Consulted with GI regarding PEG tube placement. on IV clinimix. Speech therapy will be re-evaluating her swallowing 07/28. Discussed with RN. Chart reviewed. 07/29/2021 81 y/o female who is non-verbal, w/ UTI. H/o CVA, hemiparesis,dysphagia previously / failing swallow evals. s/p cva, comfort recommended without improved survival with EPG. markedly declined and has lost at least 50 pounds / disengaged seen and examined awake and in no acute distress. regimen of rocephin/cefepime Consulted with GI regarding PEG tube placement. on IV clinimix. Speech therapy will be re-evaluating her swallowing 07/28. Discussed with RN. Chart reviewed. 07/30/2021 81 y/o female non-verbal, w/ UTI. H/o CVA, hemiparesis,dysphagia previously / failing swallow evals. s/p cva, comfort recommended without improved survival with EPG. markedly declined and has lost at least 50 pounds / disengaged seen and examined awake and in no acute distress. regimen of rocephin/cefepime Consulted with GI regarding PEG tube placement. on IV clinimix. Speech therapy will be re-evaluating her swallowing 07/28. Discussed with RN. Chart reviewed. 07/31/21 Patient is a examined at bedside. Remains on cefepime for UTI treatment. Somewhat lethargic this morning. Hoping for speech reevaluation in the next few days. Given current condition we will try to discuss case with patient's family given very poor prognosis. 08/01 No major clinical changes. No plans for PEG tube at this point. Contacted patient's son and left a voicemail with my contact information. Otherwise no changes 08/02 Patient evaluated at bedside, no clinical changes. Discussed ongoing care with the patient's son over the phone today. Plan current situation, why PEG tube would not be a good idea and dismal prognosis. After some discussing patient's son elected that comfort care would be the best option for the patient which I agree with. Will place appropriate orders. No more lab draws. [facility] Social work informed. Uncertain if patient will qualify for inpatient hospice, will start placing comfort orders. 08/03 No clinical changes. Plan for hospice meeting today at 630. 08/04 Patient's entire family in agreement with hospice at meeting yesterday. Will provide symptomatic treatment. Patient may need to get back to her nursing facility for hospice as she may not meet criteria for inpatient hospice. Otherwise continue current plan. Vitals/I&O Vitals/I&O: Vital Signs Date Time Temp Pulse Resp B/P (MAP) Pulse Ox O2 Delivery O2 Flow Rate FiO2 08/04/21 07:00 97.9 106 18 146/86 (106) 100 Room Air 97.9 I & O 08/03/21 08/03/21 08/04/21 15:00 23:00 07:00 Intake Total 0 ml 0 ml 0 ml Balance 0 ml 0 ml 0 ml Physical Exam General: Cooperative, No acute distress Heart: Regular rate, Normal S1 Lungs: Clear Abdomen: Normal bowel sounds, Soft, No tenderness Extremities: No clubbing, No cyanosis Skin: No rashes, No breakdown Assessment and Plan Assessmemt and Plan Problems Medical Problems: (1) AMS (altered mental status) Status: Acute (2) UTI (urinary tract infection) Status: Acute Comment Review of Relevant I have reviewed the following items shakeel (where applicable) has been applied. Justifications for Admission Other Justification HTN urgency WENDY SILVA MD Aug 04, 2021 12:51
[2021-08-04 19:00] VITALS: BP 108/59
--- NOTE | 2021-08-04 19:56 | NUR ---
Discharge Note: CLAUDIO RAMESH BRINGHURST Discharge instructions and discharge home medications reviewed with Patient and a copy given. All questions have been answered and understanding verbalized. The following instructions and handouts were given: Follow up appointment and contact info given Discontinued telemetry and IV line. Patient discharged to Home and with self-care and is awaiting his ride. Addendum: 08/04/21 at 1957 by ELEANOR NIELSEN RN RN Discharge note charted on wrong patient
--- NOTE | 2021-08-05 05:02 | NUR ---
Patient asystole on tele monitor, pronounced at 0423. Not a candidate for tissue donation per [facility]. Son, Hong, currently at bedside. Waiting on two other family members to arrive.
--- NOTE | 2021-08-05 11:48 | NUR ---
Discharge Note: CLAUDIO RAMESH BANCO Patient on 08/05/2021 at 0423. Patient was taken to [facility] at 1140 after all family had left hospital room.
--- NOTE | 2021-08-06 08:45 | PDOC3 ---
[facility]-Discharge Summary Date of Admission: Date of Admission: Jul 22, 2021 Date of Discharge: Date of Discharge: Aug 05, 2021 Admission Diagnosis: Problems: (1) Acute CVA (cerebrovascular accident) (2) Abnormal finding on CT scan (3) Abdominal pain Discharge Diagnosis: Discharge Diagnosis: Same, patient Hospital Course: Hospital Course: History of Present Illness HPI: This patient is an 81-year-old woman who is well known to me from many years of outpatient primary care work together until about a year ago after her , her dementia worsened and she needed to be move to [facility]. I have not seen her since that time. She has markedly declined and has lost at least 50 pounds or more and is completely disengaged and did not recognize me on my evaluation this morning. The patient was sent in with altered mental status, was found to have a urinary tract infection. Final culture results are pending and blood cultures have been sent. It looks like the patient has also been refusing to eat and drink there and is also quite dehydrated. The patient appeared comfortable on my assessment this morning. There is no other report from the [facility] of new symptoms including no cough, congestion, pain anywhere, falls, or any other new specific constitutional symptoms. All other systems reviewed and negative. 07/24/2021: Patient seen and evaluated. No acute vents overnight, low-grade fever this morning (T-max 100.1 F). She is a long-term resident at [facility]. Currently n.p.o. due to dysphagia; ST following. Continue treatment of acute cystitis with Rocephin 1 g daily. Continue to follow urine culture. 07/25/2021: Patient seen and evaluated bedside. Afebrile overnight. Resting comfortably in bed. Not answering many questions. Still norma n.p.o. We will continue treatment UTI with Rocephin 1 g daily for total of 3 days. Urine culture grew E. coli and Pseudomonas; susceptibilities pending. Will provide IV normal fluids. 07/26/2021: Patient seen and evaluated. Much more alert today. Changed her antibiotic from Rocephin to cefepime yesterday for Pseudomonas coverage. However urine culture grew Pseudomonas and E. coli, pansensitive cephalosporins. Day 3 of IV antibiotics with Rocephin/cefepime, so her antibiotic regimen for simple cystitis will be finished tomorrow. Spoke with ST, patient's still failing swallow evaluation; remains n.p.o. Continue with TPN. Placed consultation to nutrition and GI for possible PEG tube placement. 07/27/2021: Patient seen and examined. She is awake and in no acute distress. Patient completed her regimen of rocephin/cefepime today. Consulted with GI regarding PEG tube placement. She is on IV clinimix. Speech therapy will be re- evaluating her swallowing tomorrow 07/28. Discussed with RN. Chart reviewed. 07/28/2021 81 y/o female who is non-verbal, w/ UTI. H/o CVA, hemiparesis,dysphagia previously / failing swallow evals. s/p cva, comfort recommended without improved survival with EPG. markedly declined and has lost at least 50 pounds / disengaged seen and examined awake and in no acute distress. regimen of rocephin/cefepime Consulted with GI regarding PEG tube placement. on IV clinimix. Speech therapy will be re-evaluating her swallowing 07/28. Discussed with RN. Chart reviewed. 07/29/2021 81 y/o female who is non-verbal, w/ UTI. H/o CVA, hemiparesis,dysphagia previously / failing swallow evals. s/p cva, comfort recommended without improved survival with EPG. markedly declined and has lost at least 50 pounds / disengaged seen and examined awake and in no acute distress. regimen of rocephin/cefepime Consulted with GI regarding PEG tube placement. on IV clinimix. Speech therapy will be re-evaluating her swallowing 07/28. Discussed with RN. Chart reviewed. 07/30/2021 81 y/o female non-verbal, w/ UTI. H/o CVA, hemiparesis,dysphagia previously / failing swallow evals. s/p cva, comfort recommended without improved survival with EPG. markedly declined and has lost at least 50 pounds / disengaged seen and examined awake and in no acute distress. regimen of rocephin/cefepime Consulted with GI regarding PEG tube placement. on IV clinimix. Speech therapy will be re-evaluating her swallowing 07/28. Discussed with RN. Chart reviewed. 07/31/21 Patient is a examined at bedside. Remains on cefepime for UTI treatment. Somewhat lethargic this morning. Hoping for speech reevaluation in the next few days. Given current condition we will try to discuss case with patient's family given very poor prognosis. 08/01 No major clinical changes. No plans for PEG tube at this point. Contacted patient's son and left a voicemail with my contact information. Otherwise no changes 08/02 Patient evaluated at bedside, no clinical changes. Discussed ongoing care with the patient's son over the phone today. Plan current situation, why PEG tube would not be a good idea and dismal prognosis. After some discussing patient's son elected that comfort care would be the best option for the patient which I agree with. Will place appropriate orders. No more lab draws. Son plans to visit [facility]. Social work informed. Uncertain if patient will qualify for inpatient hospice, will start placing comfort orders. 08/03 No clinical changes. Plan for hospice meeting today at 630. 08/04 Patient's entire family in agreement with hospice at meeting yesterday. Will provide symptomatic treatment. Patient may need to get back to her nursing facility for hospice as she may not meet criteria for inpatient hospice. Otherwise continue current plan. 08/05 Patient passed peacefully this morning. Family at bedside and supportive care provided to them. Disposition: Disposition/Orders: Diet: Diet: other (Patient ) Medications: Home Meds Discontinued Reported Medications Fluoxetine Hcl (FLUOXETINE HCL) 60 Mg Tablet, 60 MG PO DAILY for depression, TAB 07/23/21 Olanzapine (OLANZAPINE) 10 Mg Tablet, 10 MG PO HS for insomnia, TAB 07/23/21 Memantine Hcl (NAMENDA) 10 Mg Tablet, 10 MG PO BID for dementia, TAB 07/23/21 Mirtazapine (REMERON) 30 Mg Tablet, 30 MG PO DAILY for insomnia, TAB 07/23/21 Lisinopril (LISINOPRIL) 2.5 Mg Tablet, 2.5 MG PO DAILY for FOR HYPERTENSION, #30 TAB 0 Refills 07/23/21 Oxybutynin Chloride (OXYBUTYNIN CHLORIDE ER) 10 Mg Tab.er.24, 10 MG PO DAILY for bladder spasms, TAB.SR 12/25/20 Metformin Hcl (METFORMIN HCL) 500 Mg Tablet, 500 MG PO BIDWMEALS for ANTI- DIABETIC, TAB 0 Refills 12/25/20 Ferrous Sulfate (FERROUS SULFATE) 325 Mg Tablet, 1 TAB PO DAILY for supplement for 1 Day, #1 TAB 3 Refills 12/25/20 Clopidogrel Bisulfate (CLOPIDOGREL) 75 Mg Tablet, 1 TAB PO DAILY for blood clot prevention, #90 TAB 1 Refill 12/25/20 Clonidine Hcl (CLONIDINE HCL) 0.2 Mg Tablet, 0.2 MG PO BID for for SBP >165, TAB 12/25/20 Carvedilol (CARVEDILOL ) 12.5 Mg Tablet, 12.5 MG PO BIDWMEALS for CARDIAC, TAB 12/25/20 Discontinued Scripts Atorvastatin Calcium (ATORVASTATIN CALCIUM) 40 Mg Tablet, 80 MG PO QHS for CVA for 90 Days, #180 TAB 1 Refill Prov:WENDY ALONZO MD 12/28/20 No Active Prescriptions or Reported Meds Justicifation of Admission Dx: Justifications for Admission: Justification of Admission Dx: N/A WENDY SILVA MD Aug 06, 2021 08:45
== END 2021-08-05 04:23 | DRG 689 ==
LOC: ER 17:20 → ED HOLD 18:38 → 6 SOUTH 21:03 → 5 NORTH 07-27 21:02
PROVIDERS: ADMIT Internal Medicine; ATTEND Internal Medicine
DX: N30.00 Acute cystitis without hematuria (principal); G93.41 Metabolic encephalopathy; E43 Unspecified severe protein-calorie malnutrition; I69.359 Hemiplegia and hemiparesis following cerebral infarction affecting unspecified side; B96.5 Pseudomonas (aeruginosa) (mallei) (pseudomallei) as the cause of diseases classified elsewhere; E11.9 Type 2 diabetes mellitus without complications; E78.5 Hyperlipidemia, unspecified; E86.0 Dehydration; F01.50 Vascular dementia, unspecified severity, without behavioral disturbance, psychotic disturbance, mood disturbance, and anxiety; I10 Essential (primary) hypertension; K21.9 Gastro-esophageal reflux disease without esophagitis; K86.89 Other specified diseases of pancreas; N28.9 Disorder of kidney and ureter, unspecified; R13.12 Dysphagia, oropharyngeal phase; Z51.5 Encounter for palliative care; Z90.710 Acquired absence of both cervix and uterus; F32.9 Major depressive disorder, single episode, unspecified; Z20.822 Contact with and (suspected) exposure to COVID-19; R63.4 Abnormal weight loss; E66.9 Obesity, unspecified; B96.20 Unspecified Escherichia coli [E. coli] as the cause of diseases classified elsewhere; Z68.25 Body mass index [BMI] 25.0-25.9, adult
CPT/HCPCS: 36415; 70450; 71045; 80048; 80053; 80069; 81001; 83605; 83735; 83880; 84100; 84484; 85007; 85025; 85610; 87040; 87077; 87086; 87186; 93005; 96360; 96361; J0360; J0692; J0696; J1644; J2405; J3480; J3490; J7030; J7120; U0003; U0005; 92526-GN; 92610-GN; 99285-25; G0378